=== PATIENT | male | born 1970 | race American Indian/Alaskan Native ===

== ENCOUNTER 2017-08-23 12:59 | Emergency (ER) | payer MEDICARE, MEDICAID ==
[2017-08-23 12:59] VITALS: BMI 32.5
[2017-08-23 13:11] VITALS: TEMP 98.7
[2017-08-23] MEDS ORDERED: Oxycodone/Acetaminophen 5/325 mg Tab PO STA (13:49)
--- NOTE | 2017-08-23 13:57 | ED PDOC ---
Arrival/HPI - General Chief Complaint: Lower Extremity Problem/Injury Time Seen by Provider: 08/23/17 13:07 Historian: Patient - History of Present Illness Narrative History of Present Illness (Text): 08/23/17 13:53 47yo male with PMHx of hypertension, diabetes, ESRD on dialysis TTHS present with complaint of right thigh pain. States pain radiates from his proximal thigh to his distal right thigh x 2days. Pain is more with movement. Denies trauma ,swelling , calf pain, redness, back pain, chest pain, SOB, any other complaint. Past Medical History - Provider Review Nursing Documentation Reviewed: Yes - Past History Past History: Non-Contributing - Infectious Disease Hx of Infectious Diseases: None - Tetanus Immunization Tetanus Immunization: Unknown - Cardiac Hx Hypertension: Yes Hx Pacemaker: No - Pulmonary Hx Respiratory Disorders: No - Neurological Hx Paralysis: No - HEENT Hx HEENT Disorder: No - Renal Hx Renal Disorder: Yes Hx Dialysis: Yes Date of Last Dialysis Treatment: 08/21/17 Hx Renal Failure: Yes - Endocrine/Metabolic Hx Endocrine Disorders: Yes Hx Diabetes Mellitus Type 2: Yes (iddm) - Hematological/Oncological Hx Blood Transfusions: No Hx Blood Transfusion Reaction: No - Integumentary Hx Dermatological Disorder: Yes - Musculoskeletal/Rheumatological Hx Musculoskeletal Disorders: No - Gastrointestinal Hx Gastrointestinal Disorders: No - Genitourinary/Gynecological Hx Genitourinary Disorders: No - Psychiatric Hx Emotional Abuse: No Hx Physical Abuse: No Hx Substance Use: No - Surgical History Hx Orthopedic Surgery: Yes (R FOOT) - Anesthesia Hx Anesthesia Reactions: No Hx Malignant Hyperthermia: No - Suicidal Assessment Feels Threatened In Home Enviroment: No Family/Social History - Physician Review Nursing Documentation Reviewed: Yes Family/Social History: Unknown Family HX Smoking Status: Former Smoker Hx Alcohol Use: No Hx Substance Use: No Substance used: CANNABIS Hx Substance Use Treatment: No Allergies/Home Meds Allergies/Adverse Reactions: Allergies No Known Allergies Allergy (Verified 08/23/17 13:11) Home Medications: Home Meds Medication Instructions Recorded Confirmed Insulin Lispro Mix 75/25 [HumaLOG 20 units SC ACB 06/07/15 10/15/16 Mix 75/25] Insulin Lispro Mix 75/25 [HumaLOG 15 units SC HS 06/10/16 10/15/16 Mix 75/25] Review of Systems - Physician Review All systems were reviewed & negative as marked: Yes - Review of Systems Constitutional: Normal Eyes: Normal ENT: Normal Respiratory: Normal Cardiovascular: Normal Gastrointestinal: Normal Genitourinary Male: Normal Musculoskeletal: Arthralgias (right thigh pain) Skin: Normal Neurological: Normal Endocrine: Normal Hemo/Lymphatic: Normal Psychiatric: Normal Physical Exam Vital Signs Reviewed: Yes Vital Signs Temp Pulse Resp BP Pulse Ox 08/23/17 13:07 98.7 F 87 18 195/106 H 98 Temperature: Afebrile Blood Pressure: Hypertensive Pulse: Regular Respiratory Rate: Normal Appearance: Positive for: Well-Appearing, Non-Toxic, Comfortable Pain Distress: None Mental Status: Positive for: Alert and Oriented X 3 - Systems Exam Head: Present: Atraumatic, Normocephalic Pupils: Present: PERRL Extroacular Muscles: Present: EOMI Conjunctiva: Present: Normal Mouth: Present: Moist Mucous Membranes Neck: Present: Normal Range of Motion Respiratory/Chest: Present: Clear to Auscultation, Good Air Exchange. No: Respiratory Distress, Accessory Muscle Use Cardiovascular: Present: Regular Rate and Rhythm, Normal S1, S2. No: Murmurs Abdomen: Present: Normal Bowel Sounds. No: Tenderness, Distention, Peritoneal Signs Back: Present: Normal Inspection Upper Extremity: Present: Normal Inspection. No: Cyanosis, Edema Lower Extremity: Present: NORMAL PULSES, Normal ROM, Neurovascularly Intact. No : Edema, CALF TENDERNESS, Tenderness, Swelling, Erythema, Temperature Abnormalties Neurological: Present: GCS=15, CN II-XII Intact, Speech Normal Skin: Present: Warm, Dry, Normal Color. No: Rashes Psychiatric: Present: Alert, Oriented x 3, Normal Insight, Normal Concentration Medical Decision Making ED Course and Treatment: 08/23/17 14:51 Pt in ED for stated history. He as ambulatory with steady gait in ED. His pain was controlled with PErcocet in ED Doppler US of b/l extremity was negative Femur xray was negative Result was DW the pt. He will be DC home with a rx of Gapapentin for pain/ neuropathy. Referred to his PMD. TRT ED for any new symptoms. - RAD Interpretation Radiology Orders: 08/23/17 13:47 DUPLEX LOWER EXTRM VEIN BILAT [US] Stat 08/23/17 13:48 FEMUR MIN 2 VIEWS RT [RAD] Stat - Medication Orders Current Medication Orders: Discontinued Medications Oxycodone/Acetaminophen (Percocet 5/325 Mg Tab) 1 tab PO STAT STA Stop: 08/23/17 13:50 Disposition/Present on Arrival - Present on Arrival Any Indicators Present on Arrival: No History of DVT/PE: No History of Uncontrolled Diabetes: No Urinary Catheter: No History of Decub. Ulcer: No History Surgical Site Infection Following: None - Disposition Have Diagnosis and Disposition been Completed?: Yes Diagnosis: Leg pain Disposition: HOME/ ROUTINE Disposition Time: 14:55 Patient Plan: Discharge Condition: STABLE Discharge Instructions (ExitCare): Leg Pain (ED) Additional Instructions: Follow up with your doctor Return to ED for any new symptoms Prescriptions: Gabapentin [Neurontin] 100 mg PO TID #12 capsule Referrals: Artur House MD [Family Provider] - Follow up with primary Forms: [facility] (Telugu)
--- NOTE | 2017-08-23 15:04 | RAD ---
PROCEDURE: Right Femur Radiographs. HISTORY: leg pain COMPARISON: None. TECHNIQUE: AP and Lateral Radiographs of the right femur. FINDINGS: FEMUR: Normal. No fracture. SOFT TISSUES: Normal. OTHER FINDINGS: None. IMPRESSION: Unremarkable radiographs of the right femur.
[2017-08-23 15:55] VITALS: BP 184/87; PULSE 80; RESP 16; O2SAT 100
--- NOTE | 2017-08-23 17:04 | US ---
HISTORY: Leg pain and swelling. Evaluate for DVT PHYSICIAN(S): Dawson Sandoval MD. TECHNIQUE: Duplex sonography and color-flow Doppler with graded compression were used to evaluate the deep venous systems of both lower extremities. FINDINGS: The visualized deep venous systems of both lower extremities are sonographically normal and compressible. Normal wave forms and augmentation are seen. There is no sonographic evidence for deep venous thrombosis in the visualized segments of both lower extremities. IMPRESSION: No sonographic evidence for deep venous thrombosis in the visualized segments of both lower extremities.
== END 2017-08-23 15:45 | disposition home or self-care (01) ==
LOC: ED 12:59
DX: M79.604 Pain in right leg (principal); I12.0 Hypertensive chronic kidney disease with stage 5 chronic kidney disease or end stage renal disease; E11.22 Type 2 diabetes mellitus with diabetic chronic kidney disease; N18.6 End stage renal disease; Z99.2 Dependence on renal dialysis; Z79.4 Long term (current) use of insulin; Z87.891 Personal history of nicotine dependence

== ENCOUNTER 2017-12-15 14:21 | Emergency (ER) | payer MEDICARE, MEDICAID ==
[2017-12-15 14:22] VITALS: BMI 32.5
[2017-12-15 14:54] VITALS: PULSE 92; TEMP 98.5
--- NOTE | 2017-12-15 15:35 | ED PDOC ---
Arrival/HPI - General Chief Complaint: Back Pain Time Seen by Provider: 12/15/17 15:00 Historian: Patient EM Caveat: Acuity of Condition - History of Present Illness Narrative History of Present Illness (Text): 12/15/17 15:17 The patient is a 47 year old male with a PMHx of hypertension, diabetes, ESRD on dialysis T/TH/S, and s/p lumbar spine fusion, presents with complaint of right thigh pain that starts in the right SI jt and refers down to anteriomedial thigh, superior to the knee for the past 2 days. Pain exacerbated with movement. Denies trauma ,swelling , calf pain, redness, back pain, chest pain, SOB, any other complaint. Time/Duration: < week Symptom Onset: Gradual Symptom Course: Intermittent Quality: Aching, Stabbing, Burning Severity Level: 6, 7 Activities at Onset: Rest, Light Context: Sitting, Standing, Walking, Home Past Medical History - Provider Review Nursing Documentation Reviewed: Yes - Travel History Have you recently traveled outside [place] w/in the past 3 mons?: No - Past History Past History: Non-Contributing - Infectious Disease Hx of Infectious Diseases: None - Tetanus Immunization Tetanus Immunization: Unknown - Cardiac Hx Cardiac Disorders: Yes Hx Hypertension: Yes - Pulmonary Hx Respiratory Disorders: No - Neurological Hx Neurological Disorder: No - HEENT Hx HEENT Disorder: No - Renal Hx Renal Disorder: Yes Hx Dialysis: Yes Date of Last Dialysis Treatment: 08/21/17 Hx Renal Failure: Yes - Endocrine/Metabolic Hx Endocrine Disorders: Yes Hx Diabetes Mellitus Type 2: Yes (iddm) - Hematological/Oncological Hx Blood Disorders: No - Integumentary Hx Dermatological Disorder: No - Musculoskeletal/Rheumatological Hx Musculoskeletal Disorders: Yes Hx Back Pain: Yes - Gastrointestinal Hx Gastrointestinal Disorders: No - Genitourinary/Gynecological Hx Genitourinary Disorders: No - Psychiatric Hx Psychophysiologic Disorder: No Hx Substance Use: No - Surgical History Hx Orthopedic Surgery: Yes (R FOOT) Other/Comment: AV SHUNT R ARM - Anesthesia Hx Anesthesia Reactions: No Hx Malignant Hyperthermia: No - Suicidal Assessment Feels Threatened In Home Enviroment: No Family/Social History - Physician Review Nursing Documentation Reviewed: Yes Family/Social History: Unknown Family HX Smoking Status: Former Smoker Hx Alcohol Use: No Hx Substance Use: No Substance used: CANNABIS Hx Substance Use Treatment: No Allergies/Home Meds Allergies/Adverse Reactions: Allergies No Known Allergies Allergy (Verified 12/15/17 14:47) Home Medications: Home Meds Medication Instructions Recorded Confirmed Insulin Lispro Mix 75/25 [HumaLOG 20 units SC ACB 06/07/15 12/15/17 Mix 75/25] Insulin Lispro Mix 75/25 [HumaLOG 15 units SC HS 06/10/16 12/15/17 Mix 75/25] Review of Systems - Review of Systems Constitutional: Normal Eyes: Normal ENT: Normal Respiratory: Normal Cardiovascular: Normal Gastrointestinal: Normal Genitourinary Male: Normal Musculoskeletal: Back Pain, Other (right leg pain) Skin: Normal Neurological: Normal Endocrine: Normal Hemo/Lymphatic: Normal Psychiatric: Normal Physical Exam Vital Signs Reviewed: Yes Vital Signs Temp Pulse Resp BP Pulse Ox 12/15/17 17:15 92 H 18 128/78 100 12/15/17 14:49 98.5 F 92 H 16 130/80 95 Temperature: Afebrile Blood Pressure: Normal Pulse: Regular Respiratory Rate: Normal Appearance: Positive for: Well-Appearing, Non-Toxic, Comfortable Pain Distress: None Mental Status: Positive for: Alert and Oriented X 3 - Systems Exam Head: Present: Atraumatic, Normocephalic Pupils: Present: PERRL Extroacular Muscles: Present: EOMI Conjunctiva: Present: Normal Mouth: Present: Moist Mucous Membranes Neck: Present: Normal Range of Motion Respiratory/Chest: Present: Clear to Auscultation, Good Air Exchange. No: Respiratory Distress, Accessory Muscle Use Cardiovascular: Present: Regular Rate and Rhythm, Normal S1, S2. No: Murmurs Abdomen: Present: Normal Bowel Sounds. No: Tenderness, Distention, Peritoneal Signs Back: Present: Normal Inspection, Other (R SIJ, B/L (-) SLR) Upper Extremity: Present: Normal Inspection. No: Cyanosis, Edema Lower Extremity: Present: Normal Inspection, NORMAL PULSES, Normal ROM, Tenderness (SIJ right), Neurovascularly Intact, Capillary Refill < 2 s. No: Edema, CALF TENDERNESS, Cyanosis, Farooq's Sign, Swelling, Erythema, Deformity, Temperature Abnormalties, Other Neurological: Present: GCS=15, CN II-XII Intact, Speech Normal, Normal Sensory Function, Norm Deep Tendon Reflexes, Gait Normal Skin: Present: Warm, Dry, Normal Color. No: Rashes Psychiatric: Present: Alert, Oriented x 3, Normal Insight, Normal Concentration Medical Decision Making ED Course and Treatment: 12/15/17 15:19 Impression 47yo male with PMHx of hypertension, diabetes, ESRD on dialysis TTHS, s/p lumbar spine fusion present with complaint of right thigh pain that starts in the right SI jt and refers down to anteriomedial thigh, superior to the knee for the past 2 days. Negative B SLR, Pt tender to the R SIJ Plan R femur XR 2 views assess and dispo Progress Referral to Dr. Germain for pain management Percocet 5/325 PO STAT and [id number] PO STAT 12/15/17 15:20 Femur XR unremarkable Discussed w pt Referral DW pt VSS and ambulated well - RAD Interpretation Radiology Orders: 12/15/17 15:16 Femur Right [FEMUR MIN 2 VIEWS RT] [RAD] Stat - Medication Orders Current Medication Orders: Discontinued Medications Gabapentin (Neurontin) 300 mg PO STAT ONE PRN Reason: Protocol Stop: 12/15/17 16:16 Last Admin: 12/15/17 16:24 Dose: 300 mg Oxycodone/Acetaminophen (Percocet 5/325 Mg Tab) 1 tab PO STAT STA Stop: 12/15/17 16:01 Last Admin: 12/15/17 16:24 Dose: 1 tab MAR Pain Assessment Document 12/15/17 16:24 SF (Rec: 12/15/17 16:24 [place] [email or web address] Pain Reassessment Is this a pain reassessment? Yes Sleep Is patient sleeping during reassessment? No Presence of Pain Presence of Pain Yes Disposition/Present on Arrival - Present on Arrival Any Indicators Present on Arrival: Yes History of DVT/PE: No History of Uncontrolled Diabetes: Yes Urinary Catheter: No History of Decub. Ulcer: No History Surgical Site Infection Following: None - Disposition Have Diagnosis and Disposition been Completed?: Yes Diagnosis: Sciatic leg pain, Sacro-iliac pain, Low back pain radiating down leg Disposition: HOME/ ROUTINE Disposition Time: 16:15 Patient Plan: Discharge Condition: GOOD Discharge Instructions (ExitCare): Sciatica (DC), Sacroiliac Joint Pain (DC) Additional Instructions: Dear Yonis, You were treated in the ED today for back pain. We gave you Gabapentin 300 mg tab to take at home for moderate pain. We gave you 1 tab of Extra Strength Tylenol to take in 6 hrs as directed for moderate pain. We recommend follow-up with a pain and resident program specialist physician in 1week to review your symptoms, who can take care of your sciatic pain, MRI imaging, and spine surgery referral. If any worsening pain, fever, chills, nausea, vomiting, difficulty breathing, numbness, tingling, loss of bowel or bladder or limb function or any medical condition then return to the ED. All the best in your recovery, EMILIA Hamilton Prescriptions: Acetaminophen [Tylenol 8 Hour] 650 mg PO Q6 #20 tablet.er Gabapentin [Neurontin] 300 mg PO TID 5 Days #15 cap [facility] - Follow up with primary Gerardo Germain MD [Staff Provider] - Follow up with primary Forms: [facility] (Libyan), WORK NOTE
[2017-12-15] MEDS ORDERED: Oxycodone/Acetaminophen 5/325 mg Tab PO STA (16:00)
--- NOTE | 2017-12-15 16:35 | RAD ---
PROCEDURE: Right Femur Radiographs. HISTORY: R leg pain COMPARISON: None. TECHNIQUE: AP and Lateral Radiographs of the right femur. FINDINGS: FEMUR: Normal. No fracture. SOFT TISSUES: Normal. OTHER FINDINGS: None. IMPRESSION: Unremarkable radiographs of the right femur.
[2017-12-16 11:33] VITALS: BP 128/78; RESP 18; O2SAT 100
== END 2017-12-15 17:15 | disposition home or self-care (01) ==
LOC: ED 14:21
DX: M54.5 Low back pain (principal); M53.3 Sacrococcygeal disorders, not elsewhere classified; M54.30 Sciatica, unspecified side; I12.0 Hypertensive chronic kidney disease with stage 5 chronic kidney disease or end stage renal disease; N18.6 End stage renal disease; Z99.2 Dependence on renal dialysis; E11.9 Type 2 diabetes mellitus without complications; Z87.891 Personal history of nicotine dependence

== ENCOUNTER 2018-09-03 23:16 | Inpatient (IN) | payer MEDICARE, MEDICAID ==
--- NOTE | 2018-09-04 00:12 | ED PDOC ---
Arrival/HPI <Chyna,Gigi - Last Filed: 09/04/18 00:18> - General Historian: Patient - History of Present Illness Narrative History of Present Illness (Text): 09/04/18 00:08 48 y/o male, pmh including htn/dm/nephrotic syndrome/NSTEMI/DM/ESRD //wednesday, last dialysis yesterday 09/03/2018, nkda, c/o rt. foot foul smell and wound x 1 week. Pt. stated that he wound on the rt. foot 5th digit toe which never healed, skin been peeling and been having foul smelling discharge, no fever or chills, no headache or night sweat, no dizziness, no change in vision, no numbness or tingling, no other medical or psychological complaints. <Laureano Molina - Last Filed: 09/04/18 02:35> - General Chief Complaint: Lower Extremity Problem/Injury Past Medical History - Provider Review Nursing Documentation Reviewed: Yes - Past History Past History: Non-Contributing - Infectious Disease Hx of Infectious Diseases: None - Tetanus Immunization Tetanus Immunization: Unknown - Cardiac Hx Hypertension: Yes - Pulmonary Hx Respiratory Disorders: No - Neurological Hx Neurological Disorder: No - HEENT Hx HEENT Disorder: No - Renal Hx Renal Disorder: Yes Hx Dialysis: Yes Date of Last Dialysis Treatment: 08/21/17 Hx Renal Failure: Yes - Endocrine/Metabolic Hx Endocrine Disorders: Yes Hx Diabetes Mellitus Type 2: Yes (iddm) - Hematological/Oncological Hx Blood Disorders: No - Integumentary Hx Dermatological Disorder: No - Musculoskeletal/Rheumatological Hx Musculoskeletal Disorders: Yes Hx Back Pain: Yes - Gastrointestinal Hx Gastrointestinal Disorders: No - Genitourinary/Gynecological Hx Genitourinary Disorders: No - Psychiatric Hx Psychophysiologic Disorder: No Hx Substance Use: No - Surgical History Hx Orthopedic Surgery: Yes (R FOOT) Other/Comment: AV SHUNT R ARM - Anesthesia Hx Anesthesia Reactions: No Hx Malignant Hyperthermia: No - Suicidal Assessment Feels Threatened In Home Enviroment: No <Laureano Molina - Last Filed: 09/04/18 02:35> Family/Social History - Physician Review Nursing Documentation Reviewed: Yes Family/Social History: Unknown Family HX Smoking Status: Former Smoker Hx Alcohol Use: No Hx Substance Use: No Substance used: CANNABIS Hx Substance Use Treatment: No <Laureano Molina - Last Filed: 09/04/18 02:35> Allergies/Home Meds <ChynaGigi - Last Filed: 09/04/18 00:18> <Laureano Molina - Last Filed: 09/04/18 02:35> Allergies/Adverse Reactions: Allergies No Known Allergies Allergy (Verified 12/15/17 14:47) Home Medications: Home Meds Medication Instructions Recorded Confirmed Insulin Lispro Mix 75/25 [HumaLOG 20 units SC ACB 06/07/15 02/03/18 Mix 75/25] Insulin Lispro Mix 75/25 [HumaLOG 15 units SC HS 06/10/16 02/03/18 Mix 75/25] Review of Systems - Review of Systems Constitutional: absent: Fatigue, Fevers Eyes: absent: Vision Changes ENT: absent: Hearing Changes Respiratory: absent: SOB, Cough Cardiovascular: absent: Chest Pain Gastrointestinal: absent: Abdominal Pain, Diarrhea, Nausea, Vomiting Musculoskeletal: absent: Arthralgias, Back Pain Skin: Skin Lesions, Ulcer, Cellulitis. absent: Rash, Pruritis, Laceration, Abscess Neurological: absent: Headache, Dizziness Psychiatric: absent: Anxiety, Depression, Suicidal Ideation <Laureano Molina - Last Filed: 09/04/18 02:35> Physical Exam Vital Signs Temp Pulse Resp Pulse Ox 09/04/18 00:07 98.4 F 89 19 100 <Chyna,Gigi - Last Filed: 09/04/18 00:18> - Systems Exam Head: Present: Atraumatic, Normocephalic Pupils: Present: PERRL Extroacular Muscles: Present: EOMI Conjunctiva: Present: Normal Mouth: Present: Moist Mucous Membranes Neck: Present: Normal Range of Motion Respiratory/Chest: Present: Clear to Auscultation, Good Air Exchange. No: Respiratory Distress, Accessory Muscle Use Cardiovascular: Present: Regular Rate and Rhythm, Normal S1, S2. No: Murmurs Abdomen: No: Tenderness, Distention, Peritoneal Signs Back: Present: Normal Inspection Upper Extremity: Present: Normal Inspection. No: Cyanosis, Edema Lower Extremity: Present: Normal Inspection, Other (Rt. foot: visible macerated erythematous and ulcerated 5th digit toe noted, no skin laceration, skin is peeling on the 5th toe, +DPPT pulses, capillary refill< 2 seconds, neurovascular intact, FROM without limitation. ). No: Edema Neurological: Present: GCS=15, CN II-XII Intact, Speech Normal Skin: Present: Warm, Dry, Normal Color. No: Rashes Psychiatric: Present: Alert, Oriented x 3, Normal Insight, Normal Concentration <Laureano Molina - Last Filed: 09/04/18 02:35> Medical Decision Making - RAD Interpretation Radiology Orders: 09/04/18 00:06 CHEST TWO VIEWS (PA/LAT) [RAD] Stat FOOT RIGHT 3 VIEWS ROUTINE [RAD] Stat <Gigi Clemente - Last Filed: 09/04/18 00:18> ED Course and Treatment: 09/04/18 00:11 -labs/cultures -xrays -ekg -IV vancomycin/zosyn -Observe and reassess 09/04/18 01:08 -EKG: NSR @ 88 BPM, no ST elevation or depression, no T wave inversion. -CXR: ER wet readno active disease -Rt. foot xray: Er wet read: subluxation/displaced 5th digit toe. Pt. stated that this is chronic for him as he has deformity rt. foot. Will get routine gun striper consult for him as he stated that the toe condition is chronic. -Labs are non-significant except bun 44 and creatine 8.3, K+ 5.1. Paging the patient's neighborhood coordinator Dr. Davis -Mg within normal limit -ESR 104 -CRP and Procalcitonin ordered and would be followed up by admitting team -Pt.'s pmd is Dr. Velasquez and Tank Shop Supervisor Dr. Davis, will need dialysis and admission for IV antibiotic, discussed with the patient and agreed to be admitted. 09/04/18 01:46 -His gun striper is Dr. Granados, routine consult ordered -I spoke to his neighborhood coordinator, Dr. Davis and on the consult for this case, discussed about the case/labs/radiology result and recommend one dose kayaxylate only and he would manage from there about his renal and electrolytes. -I spoke to the medicine admitting team Dr. Lamar and the resident, discussed about the case/labs/radiology result and would admit the patient. 09/04/18 02:13 -Case discussed with Dr. Clemente about the xray and he agreed the rt. foot can be routine consult with the gun striper. - RAD Interpretation Radiology Orders: 09/04/18 00:06 CHEST TWO VIEWS (PA/LAT) [RAD] Stat FOOT RIGHT 3 VIEWS ROUTINE [RAD] Stat -CXR: -Rt. foot xray: Clinical Nursing Instructor: Radiologist - EKG Interpretation EKG Interpretation (Text): 09/04/18 00:31 EKG: NSR @ 88 BPM, no ST elevation or depression, no T wave inversion. Interpreted by ED Physician: Yes Type: 12 lead EKG <Laureano Molina - Last Filed: 09/04/18 02:35> - PA / CHURCH HISTORY PROFESSOR / Resident Statement ELIZABETH has reviewed & agrees with the documentation as recorded. ELIZABETH has examined the patient and agrees with the treatment plan. <Gigi Clemente - Last Filed: 09/04/18 00:18> - PA / CHUR[facility] HISTORY PROFESSOR / Resident Statement ELIZABETH has reviewed & agrees with the documentation as recorded. ELIZABETH has examined the patient and agrees with the treatment plan. <Laureano Molina - Last Filed: 09/04/18 02:35> Disposition/Present on Arrival <Gigi Clemente - Last Filed: 09/04/18 00:18> - Present on Arrival Any Indicators Present on Arrival: No History of DVT/PE: No History of Uncontrolled Diabetes: Yes Urinary Catheter: No History of Decub. Ulcer: No History Surgical Site Infection Following: None - Disposition Have Diagnosis and Disposition been Completed?: Yes Disposition Time: 01:08 Patient Plan: Admission, Observation, Telemetry <Laureano Molina - Last Filed: 09/04/18 02:35> - Disposition Diagnosis: ESRD (end stage renal disease), Diabetic foot infection, Hyperkalemia, Subluxation of toe, Deformity, foot Disposition: HOSPITALIZED Patient Problems: Current Active Problems Problem Status Onset Hyperkalemia Acute ESRD (end stage renal disease) Acute Diabetic foot infection Acute Subluxation of toe Acute Condition: STABLE
[2018-09-04 00:31] LABS: BASO # 0.02 K/mm3 (0.0-2.0); BASO % 0.2 % (0.0-3.0); EOS # 0.2 (0.0-0.7); EOS % 2.5 % (1.5-5.0); GRAN # 6.44 (1.4-6.5); GRAN % 71.5 % (50.0-68.0); HEMOGLOBIN 10.6 g/dL (14.0-18.0); LYMPH # 1.8 (1.2-3.4); LYMPH % 19.7 % (22.0-35.0); MEAN CELL VOLUME 92.5 fl (80.0-105.0); MEAN CORPUSCULAR HEMOGLOBIN 29.3 pg (25.0-35.0); MEAN CORPUSCULAR HGB CONC 31.6 g/dl (31.0-37.0); MONO # 0.6 (0.1-0.6); MONO % 6.1 % (1.0-6.0); RBC 3.62 10^6/uL (3.5-6.1); RED CELL DISTRIBUTION WIDTH 15.5 % (11.5-14.5)
[2018-09-04 00:43] LABS: ALBUMIN 4.3 g/dL (3.0-4.8); CALCIUM 8.4 mg/dL (8.4-10.5)
[2018-09-04] MEDS ORDERED: Piperacillin/Tazobact 3.375 gm 100 ML IVPB STA (01:05)
[2018-09-04] MEDS ORDERED: Vancomycin 1gm in NS 250ml 1 GM/250 ML BAG IVPB STA (01:05)
[2018-09-04] MEDS ORDERED: Sod Polystyrene Sulf 15 gm/60 ml Susp PO STA (01:17)
[2018-09-04] MEDS ORDERED: Insulin Regular 1 UNITS/0.01 ML ML IV STA (01:17)
[2018-09-04] MEDS ORDERED: Dextrose 50% SYRINGE Inj (50 ml) IVP STA (01:18)
--- NOTE | 2018-09-04 03:01 | CP.PCM.HP ---
<Leroy Meyer - Last Filed: 09/04/18 03:19> History of Present Illness - History of Present Illness History of Present Illness: Leroy Meyer PGY1 History and Physical for Dr Lamar Pt is a 48 yo male with a PMH of HTN, DM, nephrotic syndrome, NSTEMI, ESRD, Wed//Sat with his last dialysis yesterday 09/03/18 who presents to the ED complaining of his right foot, 5th digit having a foul smell and wound for the past week. Pt states he has had the wound on his foot which has never healed. The skin has started to peel and it has a foul discharge. Pt denies fever or chills. PMH: IDDM, diabetic nephropathy, HTN, dyslipidemia, CKD stage IV, history of intersitial nephritis, TRENT Psx: fusion of T11-L4 s/p compression fracture Meds: Hydralazine, Norvasc, Humalog SH: Tobacco quit 5 years ago, denies alcohol, denies drugs FH: mother from a "blood hemorrhage" father living 72 throat cancer Allergies: NKDA Present on Admission - Present on Admission Any Indicators Present on Admission: No Review of Systems - Review of Systems Review of Systems: a 12 point ROS of systems was obtained and added to the HPI where appropriate Past Patient History - Infectious Disease Hx of Infectious Diseases: None - Tetanus Immunizations Tetanus Immunization: Unknown - Past Social History Smoking Status: Former Smoker - CARDIAC Hx Hypertension: Yes - PULMONARY Hx Respiratory Disorders: No - NEUROLOGICAL Hx Neurological Disorder: No - HEENT Hx HEENT Problems: No - RENAL Hx Chronic Kidney Disease: Yes Hx Dialysis: Yes Date of Last Dialysis Treatment: 08/21/17 Hx Renal Failure: Yes - ENDOCRINE/METABOLIC Hx Endocrine Disorders: Yes Hx Diabetes Mellitus Type 2: Yes (iddm) - HEMATOLOGICAL/ONCOLOGICAL Hx Blood Disorders: No - INTEGUMENTARY Hx Dermatological Problems: No - MUSCULOSKELETAL/RHEUMATOLOGICAL Hx Musculoskeletal Disorders: Yes Hx Back Pain: Yes - GASTROINTESTINAL Hx Gastrointestinal Disorders: No - GENITOURINARY/GYNECOLOGICAL Hx Genitourinary Disorders: No - PSYCHIATRIC Hx Psychophysiologic Disorder: No Hx Substance Use: No - SURGICAL HISTORY Hx Orthopedic Surgery: Yes (R FOOT) Other/Comment: AV SHUNT R ARM - ANESTHESIA Hx Anesthesia Reactions: No Hx Malignant Hyperthermia: No Meds Allergies/Adverse Reactions: Allergies Allergy/AdvReac Type Severity Reaction Status Date / Time No Known Allergies Allergy Verified 12/15/17 14:47 Physical Exam - Head Exam Head Exam: ATRAUMATIC, NORMOCEPHALIC - Eye Exam Eye Exam: EOMI, PERRL - ENT Exam ENT Exam: Mucous Membranes Moist - Respiratory Exam Respiratory Exam: Clear to Auscultation Bilateral, NORMAL BREATHING PATTERN. absent: Accessory Muscle Use, Wheezes - Cardiovascular Exam Cardiovascular Exam: RRR, +S1, +S2. absent: Diastolic murmur, Systolic Murmur - GI/Abdominal Exam GI & Abdominal Exam: Normal Bowel Sounds, Soft - Extremities Exam Extremities exam: Positive for: full ROM. Negative for: pedal edema Additional comments: thrill heard over fistula right UE - Neurological Exam Neurological exam: Oriented x3 - Psychiatric Exam Psychiatric exam: Normal Affect, Normal Mood - Skin Skin Exam: Dry, Intact, Normal Color, Warm Results - Vital Signs Recent Vital Signs: Last Vital Signs Temp 98.4 F 09/04/18 00:07 Pulse 89 09/04/18 00:07 Resp 19 09/04/18 00:07 BP 140/75 09/03/18 23:58 Pulse Ox 100 09/04/18 00:07 - Labs Result Diagrams: 09/04/18 00:16 09/04/18 00:16 Labs: Laboratory Results - last 24 hr 09/04/18 09/04/18 00:16 00:16 WBC 9.0 RBC 3.62 Hgb 10.6 L Hct 33.5 L MCV 92.5 D MCH 29.3 MCHC 31.6 RDW 15.5 H Plt Count 229 MPV 10.0 Gran % 71.5 H Lymph % (Auto) 19.7 L [place] % (Auto) 6.1 H Eos % (Auto) 2.5 Baso % (Auto) 0.2 Gran # 6.44 Lymph # (Auto) 1.8 [place] # (Auto) 0.6 Eos # (Auto) 0.2 Baso # (Auto) 0.02 ESR 104 H Sodium 137 Potassium 5.1 H Chloride 98 Carbon Dioxide 27 Anion Gap 18 BUN 44 H Creatinine 8.3 H* D Est GFR ( Amer) 8 Est GFR (Non-Af Amer) 7 Random Glucose 180 H Calcium 8.4 Magnesium 1.9 Total Bilirubin 0.5 AST 39 ALT 34 Alkaline Phosphatase 123 Total Creatine Kinase 239 H CK-MB (CK-2) 2.0 CK-MB (CK-2) % Cancelled Total Protein 8.6 H Albumin 4.3 Globulin 4.3 Albumin/Globulin Ratio 1.0 L Assessment & Plan - Assessment and Plan (Free Text) Assessment: 48 yo male with a PMH of HTN, DM, nephrotic syndrome, NSTEMI, ESRD, Tue/Thurs/Sat with his last dialysis yesterday 09/03/18 who presents to the ED complaining of his right foot, 5th digit having a foul smell and wound for the past week. Plan: Diabetic Foot infection, 5th digit of Right foot - UA - kayexalate - procal - foot x ray - wound culture - blood culture - CRP - vanc - pip/tazo - wound care consult - ID consult - nephro consult - podiatry consult MERLIN on CKD stage IV - baseline Cr: 4.7 - Cr: 8.3 - continue HD Anemia, chronic - Hgb: 10.6 - secondary to CKD DM - continue to monitor blood glucose, maintain euglycemia - ISS High - accuchekcs ACHS HTN - Norvac - hydralazine Ppx pantoprazole Pt seen, examined, assessment and plan discussed with Dr Brianda Meyer PGY1 - Date & Time Date: 09/04/18 Time: 03:05 <Janusz Lamar - Last Filed: 09/04/18 06:39> Results - Vital Signs Recent Vital Signs: Last Vital Signs Temp 98.4 F 09/04/18 00:07 Pulse 84 09/04/18 05:24 Resp 19 09/04/18 05:24 BP 132/70 09/04/18 03:00 Pulse Ox 100 09/04/18 03:00 - Labs Result Diagrams: 09/04/18 00:16 09/04/18 00:16 Labs: Laboratory Results - last 24 hr 09/04/18 09/04/18 00:16 00:16 WBC 9.0 RBC 3.62 Hgb 10.6 L Hct 33.5 L MCV 92.5 D MCH 29.3 MCHC 31.6 RDW 15.5 H Plt Count 229 MPV 10.0 Gran % 71.5 H Lymph % (Auto) 19.7 L [place] % (Auto) 6.1 H Eos % (Auto) 2.5 Baso % (Auto) 0.2 Gran # 6.44 Lymph # (Auto) 1.8 [place] # (Auto) 0.6 Eos # (Auto) 0.2 Baso # (Auto) 0.02 ESR 104 H Sodium 137 Potassium 5.1 H Chloride 98 Carbon Dioxide 27 Anion Gap 18 BUN 44 H Creatinine 8.3 H* D Est GFR ( Amer) 8 Est GFR (Non-Af Amer) 7 Random Glucose 180 H Calcium 8.4 Magnesium 1.9 Total Bilirubin 0.5 AST 39 ALT 34 Alkaline Phosphatase 123 Total Creatine Kinase 239 H CK-MB (CK-2) 2.0 CK-MB (CK-2) % Cancelled Total Protein 8.6 H Albumin 4.3 Globulin 4.3 Albumin/Globulin Ratio 1.0 L Attending/Attestation - Attestation I have personally seen and examined this patient.: Yes I have fully participated in the care of the patient.: Yes I have reviewed all pertinent clinical information: Yes Notes (Text): 09/04/18 06:39 Patient was seen when he was in bed # [id number]. Agree with history, physical examination, assessment and plan.
[2018-09-04 05:28] VITALS: BMI 11.3
[2018-09-04] MEDS: Insulin Lispro (HUMAlog) HIGH Coverage SC SCH ×4 (07:30→22:36)
--- NOTE | 2018-09-04 08:36 | RAD ---
HISTORY: admission, clearance COMPARISON: Chest x-ray performed 12/23/17 TECHNIQUE: Chest PA and lateral FINDINGS: Examination limited habitus. LUNGS: No focal consolidation. Please note that chest x-ray has limited sensitivity for the detection of pulmonary masses. PLEURA: No significant pleural effusion identified. No definite pneumothorax . CARDIOVASCULAR: Heart size appears top normal. No atherosclerotic calcification present. OSSEOUS STRUCTURES: Partially imaged metallic vernon and screw fixation the lumbar spine. VISUALIZED UPPER ABDOMEN: Unremarkable. OTHER FINDINGS: None. IMPRESSION: No focal consolidation.
--- NOTE | 2018-09-04 08:42 | RAD ---
PROCEDURE: Right foot Radiographs. HISTORY: macerated rt. 5th toe COMPARISON: None available. FINDINGS: BONES: No definite acute displaced fracture. JOINTS: Dislocation of the 5th digit at the proximal phalanx. SOFT TISSUES: Marked soft tissue swelling. 3 mm linear hyperdensity adjacent/medial to the proximal 1st phalanx. Additional 2 mm hyperdensity is noted on a single view chest medial to the distal aspect 3rd proximal phalanx. Apparent soft tissue laceration of the distal 5th phalanx. OTHER FINDINGS: None. IMPRESSION: Dislocation of the 5th digit at the proximal phalanx. Associated soft tissue swelling. 3 mm linear hyperdensity adjacent/medial to the proximal 1st phalanx. Additional 2 mm hyperdensity is noted on a single view chest medial to the distal aspect 3rd proximal phalanx. Tiny fracture fragment or foreign body cannot be entirely excluded. Apparent soft tissue laceration of the distal 5th phalanx. Study marked for PA review.
[2018-09-04] MEDS: Piperacillin/Tazobact 2.25gm 2.25 GM/100 ML BAG IVPB SCH ×3 (10:47→22:13)
[2018-09-04] MEDS: Linezolid 600 mg in D5W 300 ml 600 MG/300 ML BAG IVPB SCH (10:49)
--- NOTE | 2018-09-04 11:22 | CP.PCM.CON ---
History of Present Illness - History of Present Illness History of Present Illness: Podiatry Consult Note: Dr. Baig 48M patient, with PMHx of DM, HTN, ESRD, seen and evaluated at bedside for R foot 5th digit ulceration. Patient is resting in bed and in NAD. Patient states that he is well known to Dr. Baig and has been seen in the wound care center for years. He states that the ulceration happened earlier last week and he decided to present to the emergency room before it got worse. He states that the wound has been draining a small amount and he continues to wrap it himself. He denies any pain to the area. Denies any new pedal complaints. He denies N/V/F/SOB/CP. PMHx: DM, HTN, ESRD PSHx: R arm fistula ALL: NKDA Review of Systems - Review of Systems Review of Systems: As per HPI Past Patient History - Infectious Disease Hx of Infectious Diseases: None - Tetanus Immunizations Tetanus Immunization: Unknown - Past Social History Smoking Status: Former Smoker - CARDIAC Hx Congestive Heart Failure: Yes Hx Hypertension: Yes Other/Comment: nstemi - PULMONARY Hx Respiratory Disorders: No - NEUROLOGICAL Hx Neurological Disorder: No - HEENT Hx HEENT Problems: No - RENAL Hx Chronic Kidney Disease: Yes Hx Dialysis: Yes (,,) - ENDOCRINE/METABOLIC Hx Diabetes Mellitus Type 2: Yes - HEMATOLOGICAL/ONCOLOGICAL Hx Blood Disorders: No - INTEGUMENTARY Hx Dermatological Problems: No - MUSCULOSKELETAL/RHEUMATOLOGICAL Hx Falls: No Hx Osteomyelitis: Yes - GASTROINTESTINAL Hx Gastrointestinal Disorders: No - GENITOURINARY/GYNECOLOGICAL Hx Genitourinary Disorders: No - PSYCHIATRIC Hx Substance Use: No - SURGICAL HISTORY Hx Orthopedic Surgery: Yes (R FOOT) Other/Comment: AV SHUNT R ARM - ANESTHESIA Hx Anesthesia Reactions: No Hx Malignant Hyperthermia: No Meds Allergies/Adverse Reactions: Allergies Allergy/AdvReac Type Severity Reaction Status Date / Time No Known Allergies Allergy Verified 12/15/17 14:47 - Medications Medications: Current Medications Amlodipine Besylate (Norvasc) 10 mg PO DAILY MAVIS Last Admin: 09/04/18 10:46 Dose: 10 mg Hydralazine HCl (Apresoline) 10 mg PO Q6 PRN PRN Reason: Systolic Blood Pressure Piperacillin Sod/Tazobactam Sod (Zosyn 2.25 Gm In 0.9% 100 Ml) 2.25 gm in 100 mls @ 100 mls/hr IVPB Q8 MAVIS; Protocol Last Admin: 09/04/18 10:47 Dose: 100 mls/hr Linezolid (Zyvox 600mg/300ml D5w) 600 mg in 300 mls @ 200 mls/hr IVPB Q12 MAVIS; Protocol Stop: 09/11/18 10:01 Last Admin: 09/04/18 10:49 Dose: 200 mls/hr Insulin Human Lispro (Humalog High) 0 units SC ACHS MAVIS; Protocol Last Admin: 09/04/18 07:30 Dose: Not Given Pantoprazole Sodium (Protonix Inj) 40 mg IVP DAILY MAVIS Last Admin: 09/04/18 10:47 Dose: 40 mg Physical Exam - Constitutional Appears: Well, Non-toxic, No Acute Distress - Head Exam Head Exam: ATRAUMATIC, NORMOCEPHALIC - Extremities Exam Additional comments: B/L lower extremity focused exam: Vasc: DP/PT pulses palpable, Cap fill time < 3s, Temp gradient wnl, mild edema noted to lateral aspect of L foot Derm: Open ulceration noted to the dorsal- lateral aspect of the 5th MTPJ measuring approximately 2cm x 1.5x.2 cm with fibrogranular base, mildly macer ated wound border, no erythema, mild serous drainage, no probe to bone at this time, significant xerosis noted to dorsal aspect of foot bilaterally Neuro: Gross sensation diminished, protective sensation absent Ortho: No pain upon palpation, rotated R 5th digit, pes planus deformity, hammering of digits 4 and 5 on the R - Neurological Exam Neurological exam: Alert, Oriented x3 - Psychiatric Exam Psychiatric exam: Normal Affect, Normal Mood Results - Vital Signs Recent Vital Signs: Last Vital Signs Temp 99.1 F 09/04/18 06:00 Pulse 74 09/04/18 06:00 Resp 22 09/04/18 06:00 BP 129/79 09/04/18 10:46 Pulse Ox 99 09/04/18 06:00 - Labs Result Diagrams: 09/04/18 00:16 09/04/18 00:16 Labs: Laboratory Results - last 24 hr 09/04/18 09/04/18 00:16 00:16 WBC 9.0 RBC 3.62 Hgb 10.6 L Hct 33.5 L MCV 92.5 D MCH 29.3 MCHC 31.6 RDW 15.5 H Plt Count 229 MPV 10.0 Gran % 71.5 H Lymph % (Auto) 19.7 L [place] % (Auto) 6.1 H Eos % (Auto) 2.5 Baso % (Auto) 0.2 Gran # 6.44 Lymph # (Auto) 1.8 [place] # (Auto) 0.6 Eos # (Auto) 0.2 Baso # (Auto) 0.02 ESR 104 H Sodium 137 Potassium 5.1 H Chloride 98 Carbon Dioxide 27 Anion Gap 18 BUN 44 H Creatinine 8.3 H* D Est GFR ( Amer) 8 Est GFR (Non-Af Amer) 7 Random Glucose 180 H Calcium 8.4 Magnesium 1.9 Total Bilirubin 0.5 AST 39 ALT 34 Alkaline Phosphatase 123 Total Creatine Kinase 239 H CK-MB (CK-2) 2.0 CK-MB (CK-2) % Cancelled Total Protein 8.6 H Albumin 4.3 Globulin 4.3 Albumin/Globulin Ratio 1.0 L Assessment & Plan - Assessment and Plan (Free Text) Assessment: 48M patient, with PMHx of DM, HTN, ESRD, seen and evaluated at bedside for R foot 5th digit ulceration. Plan: Patient seen and evaluated with all questions and concerns addressed Lab, chart, vitals reviewed; VSS, WBC 9.0 R foot x-rays taken; dislocation of 5th digit proximal phalanx with associated soft tissue swelling Local wound care; R foot dressed with betadine and DSD Wound culture R foot; pending ID reccs appreciated Continue IV abx, Zosyn Will continue to follow Thank you for the consult - Date & Time Date: 09/04/18 Time: 11:31
--- NOTE | 2018-09-04 13:05 | CON ---
NEPHROLOGY CONSULTATION DATE OF CONSULTATION: 09/04/2018 HISTORY OF PRESENT ILLNESS: The patient is a 48-year-old male with past medical history of hypertension, diabetes, morbid obesity, and end-stage renal disease, on hemodialysis (Wednesday, and Wednesday at [facility] under [facility]), presented to the ED complaining of right fifth toe ulcer. Nephrology is being consulted for ESRD care. The patient denies suffering any trauma to the affected toe. Notes that ulcer had dehisced and had some drainage and therefore he decided to come to the ER. Denies any associated fever or chills. Denies any pain at affected site. Does have some decreased feeling in his feet, but overall is able to feel any kind of trauma. The patient otherwise had his last hemodialysis session yesterday per routine. Denies any shortness of breath. Has a good appetite. Denies any nausea, vomiting or diarrhea. PAST MEDICAL HISTORY: As above, initiated on hemodialysis in 06/2016 with renal biopsy showing diabetic nephropathy. Also with acute tubular interstitial nephritis seen at that time. FAMILY HISTORY: ESRD in the family. SOCIAL HISTORY: Denies smoking. REVIEW OF SYSTEMS: CONSTITUTIONAL: No fevers or chills. HEENT: No sinus pain or congestion. No sore throat. RESPIRATORY: Having cough since past few weeks. CARDIOVASCULAR: No chest pain or palpitations. No neck swelling. GI: No nausea, vomiting or diarrhea. : The patient is anuric. Denies any other urethral discharge or pain. MUSCULOSKELETAL: Denies any arthralgias. Has a history of chronic back pain, status post neurosurgical procedure. PSYCHIATRIC: Saw Psychiatry within last few weeks as part of transplant workup. Suspected compulsive eating habits. NEURO: Neuropathy involving bilateral feet. SKIN: Left fifth toe ulceration. PHYSICAL EXAMINATION: VITAL SIGNS: This morning, blood pressure 129/79, heart rate 74, respirations 22, temperature 99.1, O2 sat 99% on room air. GENERAL: No distress. Conversing coherently in full sentences. HEENT: Moist mucous membranes. Nonicteric. No cervical lymphadenopathy. RESPIRATORY: Lungs clear to auscultation bilaterally. No rales, no rhonchi, no wheezing. SKIN: Warm. No cyanosis. Left fifth toe lateral side ulceration with scant drainage. ABDOMEN: Soft, nontender, nondistended. : No bladder distention. EXTREMITIES: No lower leg edema. PSYCHIATRIC: Normal mood, normal affect. NEURO: No resting tremor. Has some decreased sensation in bilateral feet. LABORATORY DATA: On presentation, WBC 9.0, hemoglobin 10.6, hematocrit 33.5, platelets 229,000. Chemistry Panel: Sodium 137, potassium 5.1, chloride 98, bicarb 27, BUN 44, creatinine 8.3, glucose 180, calcium 8.4, magnesium 1.9, AST 39, ALT 34, CK 239, albumin 4.3. Chest x-ray directly visualized, lungs clear. ASSESSMENT/PLAN: 1. End-stage renal disease, on hemodialysis, relatively stable volume and electrolyte status. The patient has a history of very high interdialytic weight gain from excessive p.o. intake. Serum potassium at higher end of normal despite having dialysis just yesterday. We will simply monitor electrolytes. No need for further dosing of Kayexalate unless potassium increases significantly. Next dialysis on Wednesday per routine. 2. Hypertensive end-stage renal disease. Blood pressure currently controlled on amlodipine 10 mg daily. Had been on diuretics at home, but the patient has lost his residual renal function. Will stop home diuretics. 3. Chronic kidney disease, mineral bone disorder. The patient with hyperphosphatemia as well as secondary hyperparathyroidism of chronic kidney disease. Will continue with home doses of Sensipar and sevelamer 800 mg 4 tablets with each meal. 4. Anemia of chronic kidney disease. Hemoglobin at goal for chronic kidney disease. Will continue with outpatient EPO per protocol. 5. Right fifth toe diabetic foot ulcer. The patient currently on Zyvox and Zosyn. Zosyn being dosed for end-stage renal disease. Will follow up with ID for outpatient IV antibiotic dosing to be given on hemodialysis. Thank you for this referral. We will be following up closely. Jay Davis MD
--- NOTE | 2018-09-04 16:41 | CP.PCM.CON ---
History of Present Illness - History of Present Illness History of Present Illness: 48 year old male with PMH of HTN, DM, history of nephrotic syndrome, ESRD on HD, came in to [facility] because of discharge and foul smell associated with ulcer on the lateral portion of his right foot associated with some pain. He states that he regularly sees his Nursing Secretary Dr. Baig and the last time was last month and he apparently had no ulcer then. He states that he noticed the ulcer about a week ago, and there was only minimal discharge. He denies soaking his feet in water, no fever or chills, no animal contacts, no walking barefoot on soil. He also denies chest pain, no SOB, no headache or dizziness, no abdominal pain, no diarrhea, no dysuria. Review of Systems - Review of Systems All systems: reviewed and no additional remarkable complaints except (as per HPI) Past Patient History - Infectious Disease Hx of Infectious Diseases: None - Tetanus Immunizations Tetanus Immunization: Unknown - Past Social History Smoking Status: Former Smoker - CARDIAC Hx Congestive Heart Failure: Yes Hx Hypertension: Yes Other/Comment: nstemi - PULMONARY Hx Respiratory Disorders: No - NEUROLOGICAL Hx Neurological Disorder: No - HEENT Hx HEENT Problems: No - RENAL Hx Chronic Kidney Disease: Yes Hx Dialysis: Yes (,,) - ENDOCRINE/METABOLIC Hx Diabetes Mellitus Type 2: Yes - HEMATOLOGICAL/ONCOLOGICAL Hx Blood Disorders: No - INTEGUMENTARY Hx Dermatological Problems: No - MUSCULOSKELETAL/RHEUMATOLOGICAL Hx Falls: No Hx Osteomyelitis: Yes - GASTROINTESTINAL Hx Gastrointestinal Disorders: No - GENITOURINARY/GYNECOLOGICAL Hx Genitourinary Disorders: No - PSYCHIATRIC Hx Substance Use: No - SURGICAL HISTORY Hx Orthopedic Surgery: Yes (R FOOT) Other/Comment: AV SHUNT R ARM - ANESTHESIA Hx Anesthesia Reactions: No Hx Malignant Hyperthermia: No Meds Allergies/Adverse Reactions: Allergies Allergy/AdvReac Type Severity Reaction Status Date / Time No Known Allergies Allergy Verified 12/15/17 14:47 - Medications Medications: Current Medications Amlodipine Besylate (Norvasc) 10 mg PO DAILY MAVIS Hydralazine HCl (Apresoline) 10 mg PO Q6 PRN PRN Reason: Systolic Blood Pressure Insulin Human Lispro (Humalog High) 0 units SC ACHS MAVIS; Protocol Pantoprazole Sodium (Protonix Inj) 40 mg IVP DAILY MAVIS Physical Exam - Constitutional Appears: Chronically Ill - Head Exam Head Exam: NORMAL INSPECTION - Respiratory Exam Respiratory Exam: Decreased Breath Sounds - Cardiovascular Exam Cardiovascular Exam: +S1, +S2 - GI/Abdominal Exam GI & Abdominal Exam: Soft. absent: Tenderness - Extremities Exam Additional comments: right lateral foot at the 5th toe with ulcer with some serosanguinous discharge Results - Vital Signs Recent Vital Signs: Last Vital Signs Temp 99.1 F 09/04/18 06:00 Pulse 74 09/04/18 06:00 Resp 22 09/04/18 06:00 BP 144/99 H 09/04/18 06:00 Pulse Ox 99 09/04/18 06:00 - Labs Result Diagrams: 09/04/18 00:16 09/04/18 00:16 Labs: Laboratory Results - last 24 hr 09/04/18 09/04/18 00:16 00:16 WBC 9.0 RBC 3.62 Hgb 10.6 L Hct 33.5 L MCV 92.5 D MCH 29.3 MCHC 31.6 RDW 15.5 H Plt Count 229 MPV 10.0 Gran % 71.5 H Lymph % (Auto) 19.7 L [place] % (Auto) 6.1 H Eos % (Auto) 2.5 Baso % (Auto) 0.2 Gran # 6.44 Lymph # (Auto) 1.8 [place] # (Auto) 0.6 Eos # (Auto) 0.2 Baso # (Auto) 0.02 ESR 104 H Sodium 137 Potassium 5.1 H Chloride 98 Carbon Dioxide 27 Anion Gap 18 BUN 44 H Creatinine 8.3 H* D Est GFR ( Amer) 8 Est GFR (Non-Af Amer) 7 Random Glucose 180 H Calcium 8.4 Magnesium 1.9 Total Bilirubin 0.5 AST 39 ALT 34 Alkaline Phosphatase 123 Total Creatine Kinase 239 H CK-MB (CK-2) 2.0 CK-MB (CK-2) % Cancelled Total Protein 8.6 H Albumin 4.3 Globulin 4.3 Albumin/Globulin Ratio 1.0 L Assessment & Plan - Assessment and Plan (Free Text) Plan: Assessment Right 5th toe infected ulcer R/O osteomyelitis, R/O PVD HTN DM history of nephrotic syndrome ESRD on HD Plan Started Zyvox and Zosyn pending blood and wound cx; will also follow up xray of the foot, and will get LEONELA's follow up Podiatry evaluation will monitor clinically
--- NOTE | 2018-09-04 18:40 | CARD ---
APPROVED REPORT Date of service: 09/04/2018 EKG Measurement Heart [id number] <Conclusion> Normal sinus rhythm Normal ECG
[2018-09-05] MEDS: Pantoprazole 40 mg EC Tab PO SCH (05:51)
[2018-09-05] MEDS: Piperacillin/Tazobact 2.25gm 2.25 GM/100 ML BAG IVPB SCH ×3 (06:22→22:00)
[2018-09-05] MEDS: Insulin Lispro (HUMAlog) HIGH Coverage SC SCH ×3 (08:01→16:25)
[2018-09-05 09:35] LABS: ALB/GLOB RATIO 1.1 (1.1-1.8); CALCIUM 8.8 mg/dL (8.4-10.5)
[2018-09-05 09:39] LABS: BASO # 0.01 K/mm3 (0.0-2.0); BASO % 0.1 % (0.0-3.0); EOS # 0.2 (0.0-0.7); GRAN # 4.92 (1.4-6.5); GRAN % 69.7 % (50.0-68.0); HEMOGLOBIN 10.2 g/dL (14.0-18.0); LYMPH # 1.6 (1.2-3.4); MEAN CELL VOLUME 91.5 fl (80.0-105.0); MEAN CORPUSCULAR HEMOGLOBIN 28.8 pg (25.0-35.0); MEAN CORPUSCULAR HGB CONC 31.5 g/dl (31.0-37.0); MEAN PLATELET VOLUME 9.9 fl (7.0-11.0); MONO # 0.4 (0.1-0.6); MONO % 5.2 % (1.0-6.0); RBC 3.54 10^6/uL (3.5-6.1); RED CELL DISTRIBUTION WIDTH 15.5 % (11.5-14.5); WHITE BLOOD COUNT 7.1 10^3/uL (4.5-11.0)
[2018-09-05] MEDS: Linezolid 600 mg in D5W 300 ml 600 MG/300 ML BAG IVPB SCH ×2 (09:58→21:55)
--- NOTE | 2018-09-05 10:26 | CP.PCM.PN ---
Subjective - Date & Time of Evaluation Date of Evaluation: 09/05/18 Time of Evaluation: 10:25 - Subjective Subjective: Podiatry Progress Note for Dr. Baig: 48M patient seen and evaluated at bedside for R foot 5th digit ulceration. Patient resting in bed comfortably and in NAD. He denies any pain to the area. Denies any new pedal complaints. He denies N/V/F/SOB/CP. Objective - Vital Signs/Intake and Output Vital Signs (last 24 hours): Temp Pulse Resp BP Pulse Ox 97.8 F 85 20 147/72 98 09/05/18 06:00 09/05/18 06:00 09/05/18 06:00 09/05/18 06:00 09/05/18 06:00 Intake and Output: 09/05/18 09/05/18 06:59 18:59 Intake Total 1500 Balance 1500 - Medications Medications: Current Medications Cinacalcet (Sensipar) 60 mg PO BIDAC [facility] Last Admin: 09/05/18 08:06 Dose: 60 mg Hydralazine HCl (Apresoline) 10 mg PO Q6 PRN PRN Reason: Systolic Blood Pressure Piperacillin Sod/Tazobactam Sod (Zosyn 2.25 Gm In 0.9% 100 Ml) 2.25 gm in 100 mls @ 100 mls/hr IVPB Q8 [facility]; Protocol Last Admin: 09/05/18 06:22 Dose: 100 mls/hr Linezolid (Zyvox 600mg/300ml D5w) 600 mg in 300 mls @ 200 mls/hr IVPB Q12 [facility]; Protocol Stop: 09/11/18 10:01 Last Admin: 09/05/18 09:58 Dose: 200 mls/hr Insulin Human Lispro (Humalog High) 0 units SC ACHS [facility]; Protocol Last Admin: 09/05/18 08:01 Dose: Not Given Losartan Potassium (Cozaar) 100 mg PO DAILY [facility] Last Admin: 09/05/18 09:58 Dose: 100 mg Pantoprazole Sodium (Protonix Ec Tab) 40 mg PO 0600 [facility] Last Admin: 09/05/18 05:51 Dose: 40 mg Sevelamer HCl (Renagel) 3,200 mg PO WM [facility] Last Admin: 09/05/18 08:06 Dose: 3,200 mg - Labs Labs: 09/05/18 09:00 09/05/18 09:00 - Constitutional Appears: Well, Non-toxic, No Acute Distress - Head Exam Head Exam: ATRAUMATIC, NORMOCEPHALIC - Extremities Exam Additional comments: B/L lower extremity focused exam: Vasc: DP/PT pulses palpable, Cap fill time < 3s, Temp gradient wnl, mild edema noted to lateral aspect of L foot Derm: Open ulceration noted to the dorsal- lateral aspect of the 5th MTPJ measuring approximately 2cm x 1.5x.2 cm with fibrogranular base, mildly macerated wound border, no erythema, mild serous drainage, no probe to bone at this time, significant xerosis noted to dorsal aspect of foot bilaterally Neuro: Gross sensation diminished, protective sensation absent Ortho: No pain upon palpation, rotated R 5th digit, pes planus deformity, hammering of digits 4 and 5 on the R - Neurological Exam Neurological Exam: Alert, Awake, Oriented x3 - Psychiatric Exam Psychiatric exam: Normal Affect, Normal Mood Assessment and Plan - Assessment and Plan (Free Text) Assessment: 48M patient, seen and evaluated at bedside for R foot 5th digit ulceration. Plan: Patient seen and evaluated at bedside with Dr. Jovanni BRANNON, WBC 7.1 HbA1C ordered ESR ordered RLE MRI without contrast ordered; pending Non-invasive vascular studies ordered Local wound care: xeroform, DSD Rx: bactroban for local wound care starting tomorrow
[2018-09-05] MEDS ORDERED: Dextrose 50% SYRINGE Inj (50 ml) IVP ONE (10:31)
[2018-09-05] MEDS ORDERED: Sod Polystyrene Sulf 15 gm/60 ml Susp PO STA (10:31)
[2018-09-05] MEDS ORDERED: Insulin Regular 1 UNITS/0.01 ML ML IVP STA (10:33)
--- NOTE | 2018-09-05 12:43 | CP.PCM.PN ---
Subjective - Date & Time of Evaluation Date of Evaluation: 09/05/18 Time of Evaluation: 09:20 - Subjective Subjective: Comfortable in bed, no fevers, no increased pain in the right foot. Objective - Vital Signs/Intake and Output Vital Signs (last 24 hours): Temp Pulse Resp BP Pulse Ox 98.1 F 86 18 130/88 94 L 09/04/18 14:13 09/04/18 14:13 09/04/18 14:13 09/04/18 14:13 09/04/18 14:13 - Medications Medications: Current Medications Amlodipine Besylate (Norvasc) 10 mg PO DAILY [facility] Last Admin: 09/04/18 10:46 Dose: 10 mg Hydralazine HCl (Apresoline) 10 mg PO Q6 PRN PRN Reason: Systolic Blood Pressure Piperacillin Sod/Tazobactam Sod (Zosyn 2.25 Gm In 0.9% 100 Ml) 2.25 gm in 100 mls @ 100 mls/hr IVPB Q8 [facility]; Protocol Last Admin: 09/04/18 10:47 Dose: 100 mls/hr Linezolid (Zyvox 600mg/300ml D5w) 600 mg in 300 mls @ 200 mls/hr IVPB Q12 [facility]; Protocol Stop: 09/11/18 10:01 Last Admin: 09/04/18 10:49 Dose: 200 mls/hr Insulin Human Lispro (Humalog High) 0 units SC ACHS [facility]; Protocol Last Admin: 09/04/18 11:53 Dose: Not Given Pantoprazole Sodium (Protonix Inj) 40 mg IVP DAILY [facility] Last Admin: 09/04/18 10:47 Dose: 40 mg Sevelamer HCl (Renagel) 3,200 mg PO WM [facility] Last Admin: 09/04/18 12:47 Dose: 3,200 mg - Labs Labs: 09/04/18 00:16 09/04/18 00:16 - Constitutional Appears: Chronically Ill - Head Exam Head Exam: NORMAL INSPECTION - Respiratory Exam Respiratory Exam: Decreased Breath Sounds - Cardiovascular Exam Cardiovascular Exam: +S1, +S2 - GI/Abdominal Exam GI & Abdominal Exam: Soft. absent: Tenderness - Extremities Exam Additional comments: right foot with dressings in place Assessment and Plan - Assessment and Plan (Free Text) Plan: Assessment Right 5th toe infected ulcer R/O osteomyelitis, R/O PVD HTN DM history of nephrotic syndrome ESRD on HD Plan continue Zyvox and Zosyn day 2 pending blood and wound cx;follow up LEONELA's and MRI of the foot follow up Podiatry evaluation will monitor clinically
--- NOTE | 2018-09-05 13:27 | CP.PCM.PN ---
<Shiva Bennett - Last Filed: 09/05/18 16:02> Subjective - Date & Time of Evaluation Date of Evaluation: 09/05/18 Time of Evaluation: 16:02 - Subjective Subjective: Shiva Bennett DO PGY1 - Internal Medicine Supervisor Pipelines - Medicine Progress Note Patient was seen and examined at bedside this morning No acute events overnight. Patient resting comfortably; Does complain of LLE/RLE burning sensation at night. No other complaints offered at this time. Objective - Vital Signs/Intake and Output Vital Signs (last 24 hours): Temp Pulse Resp BP Pulse Ox 97.8 F 85 20 147/72 98 09/05/18 06:00 09/05/18 06:00 09/05/18 06:00 09/05/18 06:00 09/05/18 06:00 Intake and Output: 09/05/18 09/05/18 06:59 18:59 Intake Total 1500 Balance 1500 - Medications Medications: Current Medications Cinacalcet (Sensipar) 60 mg PO BIDAC [facility] Last Admin: 09/05/18 08:06 Dose: 60 mg Hydralazine HCl (Apresoline) 10 mg PO Q6 PRN PRN Reason: Systolic Blood Pressure Piperacillin Sod/Tazobactam Sod (Zosyn 2.25 Gm In 0.9% 100 Ml) 2.25 gm in 100 mls @ 100 mls/hr IVPB Q8 [facility]; Protocol Last Admin: 09/05/18 06:22 Dose: 100 mls/hr Linezolid (Zyvox 600mg/300ml D5w) 600 mg in 300 mls @ 200 mls/hr IVPB Q12 [facility]; Protocol Stop: 09/11/18 10:01 Last Admin: 09/05/18 09:58 Dose: 200 mls/hr Insulin Human Lispro (Humalog High) 0 units SC ACHS [facility]; Protocol Last Admin: 09/05/18 11:53 Dose: Not Given Losartan Potassium (Cozaar) 100 mg PO DAILY [facility] Last Admin: 09/05/18 09:58 Dose: 100 mg Pantoprazole Sodium (Protonix Ec Tab) 40 mg PO 0600 [facility] Last Admin: 09/05/18 05:51 Dose: 40 mg Sevelamer HCl (Renagel) 3,200 mg PO WM [facility] Last Admin: 09/05/18 11:55 Dose: 3,200 mg - Labs Labs: 09/05/18 09:00 09/05/18 09:00 - Constitutional Appears: Well, Non-toxic, No Acute Distress - Head Exam Head Exam: ATRAUMATIC, NORMAL INSPECTION, NORMOCEPHALIC - Eye Exam Eye Exam: EOMI, Normal appearance, PERRL - ENT Exam ENT Exam: Mucous Membranes Moist - Respiratory Exam Respiratory Exam: Clear to Ausculation Bilateral, NORMAL BREATHING PATTERN - Cardiovascular Exam Cardiovascular Exam: RRR, +S1, +S2 - GI/Abdominal Exam GI & Abdominal Exam: Soft, Normal Bowel Sounds. absent: Tenderness - Extremities Exam Additional comments: Diminished pedal pulse Extremities warm RLE dressing in place; clear dry intact w/o discharge. - Neurological Exam Neurological Exam: Alert, Awake, CN II-XII Intact, Oriented x3 Assessment and Plan - Assessment and Plan (Free Text) Assessment: 48M w/ PMH HTN, DM, Nephrotic Syndrome, NSTEMI, ESRD - TTS dialysis, presented to ED w/ c/o foul odor + pain in 5th digit of Right foot x1 week prior to admission. Patient subsequently admitted for diabetic foot infection and osteomyelitis r/o Plan: Diabetic Foot infection of 5th digit R foot - r/o osteomyelitis R foot XR - dislocation of the 5th digit at proximal phalanx associated w/ soft tissue swelling; 3mm linear hyperdensity adjacent / medial to the proximal 1st phalanx - F/u RLE MRI - r/o osteo - C/w IV ABX as per ID - Zyvox / Zosyn - Wound Cx - GNR s/s pending - Blood Cx - negative @ 24H - Afebrile; WBC wnl - ESR/ CRP elevated - ID following appreciate recs - Podiatry following appreciate recs HyperKalemia + MERLIN on CKD stage IV - Patient hyperkalemic this AM - Insulin + Glucose; Kayexalate; Calcium gluconate given - Patient underwent HD this AM - baseline Cr: 4.7 - Nephro following, appreciate recs Anemia, chronic - Hgb: 10.6 - secondary to CKD DM - continue to monitor blood glucose, maintain euglycemia - ISS High - accuchekcs ACHS HTN - Norvac - hydralazine Ppx pantoprazole SCD Patient was seen examined discussed w/ attending Dr. Hope Bennett DO PGY1 - Internal Medicine Supervisor Pipelines - Medicine Progress Note <Hope Bennett R - Last Filed: 09/06/18 07:58> Objective - Vital Signs/Intake and Output Vital Signs (last 24 hours): Temp Pulse Resp BP Pulse Ox 97.8 F 85 20 147/72 98 09/05/18 06:00 09/05/18 06:00 09/05/18 06:00 09/05/18 06:00 09/05/18 06:00 Intake and Output: 09/06/18 09/06/18 06:59 18:59 Intake Total 360 Balance 360 - Medications Medications: Current Medications Cinacalcet (Sensipar) 60 mg PO BIDAC [facility] Last Admin: 09/05/18 16:30 Dose: 60 mg Heparin Sodium (Porcine) (Heparin) 5,000 units SC Q8 [facility]; Protocol Hydralazine HCl (Apresoline) 10 mg PO Q6 PRN PRN Reason: Systolic Blood Pressure Piperacillin Sod/Tazobactam Sod (Zosyn 2.25 Gm In 0.9% 100 Ml) 2.25 gm in 100 mls @ 100 mls/hr IVPB Q8 [facility]; Protocol Last Admin: 09/06/18 05:53 Dose: 100 mls/hr Linezolid (Zyvox 600mg/300ml D5w) 600 mg in 300 mls @ 200 mls/hr IVPB Q12 [facility]; Protocol Stop: 09/11/18 10:01 Last Admin: 09/05/18 21:55 Dose: 200 mls/hr Insulin Human Lispro (Humalog High) 0 units SC ACHS [facility]; Protocol Last Admin: 09/05/18 16:25 Dose: Not Given Losartan Potassium (Cozaar) 100 mg PO DAILY [facility] Last Admin: 09/05/18 09:58 Dose: 100 mg Mupirocin (Bactroban Ointment) 0 gm TOP BID [facility] Last Admin: 09/05/18 19:09 Dose: Not Given Pantoprazole Sodium (Protonix Ec Tab) 40 mg PO 0600 [facility] Last Admin: 09/06/18 05:54 Dose: 40 mg Sevelamer HCl (Renagel) 3,200 mg PO WM [facility] Last Admin: 09/05/18 16:30 Dose: 3,200 mg - Labs Labs: 09/06/18 06:20 12/18/18 06:20 Attending/Attestation - Attestation I have personally seen and examined this patient.: Yes I have fully participated in the care of the patient.: Yes I have reviewed all pertinent clinical information, including history, physical exam and plan: Yes Notes (Text): Patient seen and examined by me with resident at 10:40 AM on 09/05/18. Case including HPI, physical exam, and assessment and plan discussed with resident. Agree with above with following additions/corrections. Patient is a 48-year-old male with past medical history significant for hypertension, type 2 diabetes, nephrotic syndrome, coronary artery disease, NSTEMI, and end-stage renal disease on dialysis Wednesday//Wednesday the presented to the emergency room with foul smell from right foot fifth digit ulceration. Patient states he is feeling ok. Patient denies any pain in his right foot but complains of a "burning" sensation over night. Patient denies any trauma that he can remember to this right foot. Patient denies any abdominal pain. No nausea or vomiting. No chest pain or shortness of breath. No headaches or dizziness. No fevers or chills. No diarrhea or constipation. Physical exam: General: Awake and alert sitting up in bed in no acute distress HEENT: Normocephalic, atraumatic. Extraocular muscles intact, pupils equal and reactive, no scleral icterus. Oropharynx is pink moist. Neck is supple. Cardiovascular: Regular rhythm. Normal S1 and S2. No murmurs, rubs, or gallops appreciated Pulmonary: Normal respiratory effort. No rhonchi, rales, or wheezing appreciated Gastrointestinal: Soft, nondistended. Nontender. Positive bowel sounds all 4 quadrants. No guarding. Positive globular abdomen Musculoskeletal: Moves all extremities. No calf tenderness. Lower extremity yovany ma bilaterally. Central nervous system: AAO x 3, CN2-12 grossly intact Dermatologic: Skin warm and dry. Right foot dressing with some purulent discharge. Positive xeroderma of right foot. Assessment and plan: Patient is a 48-year-old male with past medical history significant for hypertension, type 2 diabetes, nephrotic syndrome, coronary artery disease, NSTEMI, and end-stage renal disease on dialysis Wednesday//Wednesday the presented to the emergency room with foul smell from right foot fifth digit ulceration. 1. Right foot diabetic foot ulcer. Rule out osteomyelitis. Podiatry following, recommendations appreciated. Right foot xray per radiologist showed dislocation of the fifth digit at the proximal phalanx, associated soft tissue swelling, 3 mm linear hyperdensity adjacent/medial to proximal first phalanx, additional 2 mm hyperdensity started on a single view medial to distal aspects of the third proximal phalanx, tiny fracture fragment foreign body cannot be entirely excl uded, apparent soft tissue laceration of the distal fifth phalanx. Case was discussed in detail with patient regarding current diagnosis and treatment plan. All questions answered.ID following, recommendations appreciated. Continue Zyvox and Zosyn. Pending final wound cultures. Cultures with no growth for 24 hours. Patient afebrile. No leukocytosis. ESR elevated. Follow-up MRI to rule out osteomyelitis. 2. Hyperkalemia. Patient for dialysis today. Patient given insulin and amp of D50. Also given Kayexalate. Follow up repeat labs. 3. End-stage renal disease on dialysis. Continue dialysis //Wednesday. Patient for extra dialysis today secondary to hyperkalemia. Nephrology following, recommendations appreciated. Continue Sensipar and Renagel. 4. Type 2 diabetes. Continue insulin sliding scale. Monitor Accu-Cheks. 5. Hypertension. Continue Cozaar. 6. GI/DVT prophylaxis. Protonix/heparin 7. Patient is a full code Case was discussed in detail with the patient regarding current diagnosis and treatment plan. All questions answered.
[2018-09-05] MEDS: Mupirocin 2% Ointment 15 GM TUBE TOP SCH (19:09)
--- NOTE | 2018-09-05 20:59 | CP.PCM.PN ---
Subjective - Date & Time of Evaluation Date of Evaluation: 09/05/18 Time of Evaluation: 12:00 - Subjective Subjective: Patient reports feeling well; tolerating diet; denies eating any high K foods; no sob; Objective - Vital Signs/Intake and Output Vital Signs (last 24 hours): Temp Pulse Resp BP Pulse Ox 97.8 F 85 20 147/72 98 09/05/18 06:00 09/05/18 06:00 09/05/18 06:00 09/05/18 06:00 09/05/18 06:00 - Medications Medications: Current Medications Cinacalcet (Sensipar) 60 mg PO BIDAC [facility] Last Admin: 09/05/18 16:30 Dose: 60 mg Hydralazine HCl (Apresoline) 10 mg PO Q6 PRN PRN Reason: Systolic Blood Pressure Piperacillin Sod/Tazobactam Sod (Zosyn 2.25 Gm In 0.9% 100 Ml) 2.25 gm in 100 mls @ 100 mls/hr IVPB Q8 [facility]; Protocol Last Admin: 09/05/18 16:24 Dose: 100 mls/hr Linezolid (Zyvox 600mg/300ml D5w) 600 mg in 300 mls @ 200 mls/hr IVPB Q12 [facility]; Protocol Stop: 09/11/18 10:01 Last Admin: 09/05/18 09:58 Dose: 200 mls/hr Insulin Human Lispro (Humalog High) 0 units SC ACHS [facility]; Protocol Last Admin: 09/05/18 16:25 Dose: Not Given Losartan Potassium (Cozaar) 100 mg PO DAILY [facility] Last Admin: 09/05/18 09:58 Dose: 100 mg Mupirocin (Bactroban Ointment) 0 gm TOP BID [facility] Last Admin: 09/05/18 19:09 Dose: Not Given Pantoprazole Sodium (Protonix Ec Tab) 40 mg PO 0600 [facility] Last Admin: 09/05/18 05:51 Dose: 40 mg Sevelamer HCl (Renagel) 3,200 mg PO WM [facility] Last Admin: 09/05/18 16:30 Dose: 3,200 mg - Labs Labs: 09/05/18 09:00 09/05/18 09:00 - Constitutional Appears: Non-toxic, No Acute Distress - Eye Exam Eye Exam: Normal appearance - Respiratory Exam Respiratory Exam: Clear to Ausculation Bilateral. absent: Respiratory Distress - Cardiovascular Exam Cardiovascular Exam: RRR, +S1, +S2 - GI/Abdominal Exam GI & Abdominal Exam: Soft. absent: Distended, Tenderness - Extremities Exam Additional comments: no leg edema; R arm AVF w/ good thrill; - Neurological Exam Neurological Exam: Alert, Awake - Psychiatric Exam Psychiatric exam: Normal Mood. absent: Agitated - Skin Skin Exam: Warm. absent: Cyanosis Assessment and Plan (1) ESRD on hemodialysis Assessment & Plan: Hyperkalemia seen today despite generally having been controlled as outpatient; dialyzing today off schedule for 2 hrs to control K level and help control volume status; next HD tomorrow per routine; -avoid IV calcium in ESRD patient unless considered urgent; -low K diet; Status: Acute (2) Hypertensive CKD, ESRD on dialysis Assessment & Plan: BP controlled on losartan 100 mg daily, continue same; Status: Chronic (3) Chronic kidney disease-mineral and bone disorder Assessment & Plan: Phos elevated lately; continue sevalamer 800 mg 4 tabs w/ each meal; sensipar 60 mg bid; Status: Chronic (4) Diabetic foot infection Assessment & Plan: On linezolid and zosyn (dosed for ESRD); will f/u with ID; Status: Acute (5) Anemia in chronic kidney disease Assessment & Plan: Hgb just at goal for CKD (10-11g); will re-dose DAVID drug (aranesp) on HD; Status: Acute
[2018-09-06] MEDS: Piperacillin/Tazobact 2.25gm 2.25 GM/100 ML BAG IVPB SCH ×3 (05:53→21:17)
[2018-09-06] MEDS: Pantoprazole 40 mg EC Tab PO SCH (05:54)
[2018-09-06 06:52] LABS: BASO # 0.02 K/mm3 (0.0-2.0); BASO % 0.3 % (0.0-3.0); EOS # 0.2 (0.0-0.7); EOS % 3.2 % (1.5-5.0); GRAN # 4.33 (1.4-6.5); GRAN % 63.1 % (50.0-68.0); HEMOGLOBIN 10.3 g/dL (14.0-18.0); LYMPH # 1.9 (1.2-3.4); LYMPH % 27.6 % (22.0-35.0); MEAN CELL VOLUME 91.1 fl (80.0-105.0); MEAN CORPUSCULAR HEMOGLOBIN 28.7 pg (25.0-35.0); MEAN CORPUSCULAR HGB CONC 31.5 g/dl (31.0-37.0); MEAN PLATELET VOLUME 9.4 fl (7.0-11.0); MONO # 0.4 (0.1-0.6); MONO % 5.8 % (1.0-6.0); RBC 3.59 10^6/uL (3.5-6.1); RED CELL DISTRIBUTION WIDTH 15.6 % (11.5-14.5); WHITE BLOOD COUNT 6.9 10^3/uL (4.5-11.0)
[2018-09-06 07:35] LABS: ALB/GLOB RATIO 1.1 (1.1-1.8); ALBUMIN 4.2 g/dL (3.0-4.8); CALCIUM 8.5 mg/dL (8.4-10.5)
[2018-09-06] MEDS ORDERED: Darbepoetin Alfa 40 mcg/ml Inj IVP ONE (10:05)
[2018-09-06] MEDS ORDERED: Doxercalciferol 4 mcg/2 ml Inj IV ONE (10:09)
[2018-09-06] MEDS: Mupirocin 2% Ointment 15 GM TUBE TOP SCH ×2 (11:11→17:16)
[2018-09-06] MEDS: Insulin Lispro (HUMAlog) HIGH Coverage SC SCH ×2 (11:11→16:30)
[2018-09-06] MEDS: Linezolid 600 mg in D5W 300 ml 600 MG/300 ML BAG IVPB SCH ×2 (11:12→21:18)
--- NOTE | 2018-09-06 12:42 | CP.PCM.PN ---
<Ginette Hackett - Last Filed: 09/06/18 14:10> Subjective - Date & Time of Evaluation Date of Evaluation: 09/06/18 Time of Evaluation: 07:40 - Subjective Subjective: Internal medicine progress note for Dr. Adela Bennett Patient seen and examined this am at bedside. NAEO per nursing. Patient states he is feeling much better and has no complaints. He states his foot is feeling much better. He will be going for additional dialysis today. He otherwise denies WORKMAN, CP, SOB, f/c, abdominal pain, n/v and extremity weakness. Objective - Vital Signs/Intake and Output Vital Signs (last 24 hours): Temp Pulse Resp BP Pulse Ox 98.8 F 86 18 141/92 H 94 L 09/06/18 08:09 09/06/18 08:09 09/06/18 08:09 09/06/18 08:09 09/06/18 08:09 Intake and Output: 09/06/18 09/06/18 06:59 18:59 Intake Total 360 Balance 360 - Medications Medications: Current Medications Cinacalcet (Sensipar) 60 mg PO BIDAC [facility] Last Admin: 09/06/18 11:11 Dose: Not Given Heparin Sodium (Porcine) (Heparin) 5,000 units SC Q8 [facility]; Protocol Hydralazine HCl (Apresoline) 10 mg PO Q6 PRN PRN Reason: Systolic Blood Pressure Piperacillin Sod/Tazobactam Sod (Zosyn 2.25 Gm In 0.9% 100 Ml) 2.25 gm in 100 mls @ 100 mls/hr IVPB Q8 [facility]; Protocol Last Admin: 09/06/18 05:53 Dose: 100 mls/hr Linezolid (Zyvox 600mg/300ml D5w) 600 mg in 300 mls @ 200 mls/hr IVPB Q12 [facility]; Protocol Stop: 09/11/18 10:01 Last Admin: 09/06/18 11:12 Dose: Not Given Insulin Human Lispro (Humalog High) 0 units SC ACHS [facility]; Protocol Last Admin: 09/06/18 11:11 Dose: Not Given Losartan Potassium (Cozaar) 100 mg PO DAILY [facility] Last Admin: 09/06/18 11:11 Dose: Not Given Mupirocin (Bactroban Ointment) 0 gm TOP BID [facility] Last Admin: 09/06/18 11:11 Dose: Not Given Pantoprazole Sodium (Protonix Ec Tab) 40 mg PO 0600 [facility] Last Admin: 09/06/18 05:54 Dose: 40 mg Sevelamer HCl (Renagel) 3,200 mg PO WM [facility] Last Admin: 09/06/18 12:06 Dose: Not Given - Labs Labs: 09/06/18 06:20 09/06/18 06:20 - Constitutional Appears: Well, Non-toxic, No Acute Distress - Head Exam Head Exam: ATRAUMATIC, NORMOCEPHALIC - Eye Exam Eye Exam: EOMI - ENT Exam ENT Exam: Mucous Membranes Moist - Respiratory Exam Respiratory Exam: NORMAL BREATHING PATTERN - Cardiovascular Exam Cardiovascular Exam: REGULAR RHYTHM - GI/Abdominal Exam GI & Abdominal Exam: Soft. absent: Distended, Guarding, Tenderness - Extremities Exam Extremities Exam: absent: Calf Tenderness, Pedal Edema Additional comments: dressing on R foot cdi, present but diminished pedal pulses bilaterally, extremities warm - Neurological Exam Neurological Exam: Alert, Awake, Oriented x3 - Psychiatric Exam Psychiatric exam: Normal Affect, Normal Mood - Skin Skin Exam: Dry, Warm Assessment and Plan - Assessment and Plan (Free Text) Assessment: 48M w/ PMH HTN, DM, Nephrotic Syndrome, NSTEMI, ESRD - TTS dialysis, presented to ED w/ c/o foul odor + pain in 5th digit of Right foot x1 week prior to admission. Patient subsequently admitted for diabetic foot infection and osteomyelitis r/o Plan: Diabetic Foot infection of 5th digit R foot - r/o osteomyelitis R foot XR - dislocation of the 5th digit at proximal phalanx associated w/ soft tissue swelling; 3mm linear hyperdensity adjacent / medial to the proximal 1st phalanx - F/u RLE MRI - r/o osteo - C/w IV ABX as per ID - Zyvox / Zosyn - Wound Cx - GNR s/s pending - Blood Cx - negative @ 48H - Afebrile; WBC wnl - ESR/ CRP elevated - ID following appreciate recs - Podiatry following appreciate recs HyperKalemia + MERLIN on CKD stage IV - Patient hyperkalemic this AM - Patient underwent HD this AM and yesterday - baseline Cr: 4.7 - Nephro following, appreciate recs Anemia, chronic - Hgb: 10.3 - secondary to CKD DM - continue to monitor blood glucose, maintain euglycemia - ISS High - accuchekcs ACHS HTN - Norvac - hydralazine Ppx pantoprazole SCD Patient was seen examined discussed w/ attending Dr. Hope Hackett, PGY 1 <Hope Bennett R - Last Filed: 09/07/18 17:23> Objective - Vital Signs/Intake and Output Vital Signs (last 24 hours): Temp Pulse Resp BP Pulse Ox 99.6 F 86 18 148/87 100 09/07/18 13:31 09/07/18 13:31 09/07/18 13:31 09/07/18 13:31 09/07/18 13:31 Intake and Output: 09/07/18 09/07/18 06:59 18:59 Intake Total 360 Balance 360 - Medications Medications: Current Medications Cinacalcet (Sensipar) 60 mg PO BIDAC [facility] Last Admin: 09/07/18 16:43 Dose: 60 mg Heparin Sodium (Porcine) (Heparin) 5,000 units SC Q8 [facility]; Protocol Last Admin: 09/07/18 07:05 Dose: 5,000 units Hydralazine HCl (Apresoline) 10 mg PO Q6 PRN PRN Reason: Systolic Blood Pressure Piperacillin Sod/Tazobactam Sod (Zosyn 2.25 Gm In 0.9% 100 Ml) 2.25 gm in 100 mls @ 100 mls/hr IVPB Q8 [facility]; Protocol Last Admin: 09/07/18 07:06 Dose: 100 mls/hr Linezolid (Zyvox 600mg/300ml D5w) 600 mg in 300 mls @ 200 mls/hr IVPB Q12 [facility]; Protocol Stop: 09/11/18 10:01 Last Admin: 09/07/18 10:14 Dose: 200 mls/hr Insulin Human Lispro (Humalog High) 0 units SC ACHS [facility]; Protocol Last Admin: 09/07/18 12:08 Dose: 2 unit Losartan Potassium (Cozaar) 100 mg PO DAILY [facility] Last Admin: 09/07/18 10:14 Dose: 100 mg Mupirocin (Bactroban Ointment) 0 gm TOP BID [facility] Last Admin: 09/07/18 16:43 Dose: 1 applic Sevelamer HCl (Renagel) 3,200 mg PO WM [facility] Last Admin: 09/07/18 16:43 Dose: 3,200 mg - Labs Labs: 09/07/18 07:30 09/07/18 07:30 Attending/Attestation - Attestation I have personally seen and examined this patient.: Yes I have fully participated in the care of the patient.: Yes I have reviewed all pertinent clinical information, including history, physical exam and plan: Yes Notes (Text): Patient seen and examined by me with resident at 11:30 AM on 09/06/18. Case including HPI, physical exam, and assessment and plan discussed with resident. Agree with above with following additions/corrections. Patient is a 48-year-old male with past medical history significant for hypertension, type 2 diabetes, nephrotic syndrome, coronary artery disease, NSTEMI, and end-stage renal disease on dialysis Wednesday//Wednesday the presented to the emergency room with foul smell from right foot fifth digit ulceration. Patient seen in dialysis. Patient states that he feels ok. Denies any pain or burning in his right foot today. Patient states "I dont feel anything." Patient denies chest pain or shortness of breath. No abdominal pain. No nausea or vomiting. No headaches or dizziness. No fevers or chills. No diarrhea or constipation. Physical exam: General: Awake and alert lying in bed in no acute distress HEENT: Normocephalic, atraumatic. Extraocular muscles intact, pupils equal and reactive, no scleral icterus. Oropharynx is pink moist. Neck is supple. Cardiovascular: Regular rhythm. Normal S1 and S2. No murmurs, rubs, or gallops appreciated Pulmonary: Normal respiratory effort. No rhonchi, rales, or wheezing appreciated Gastrointestinal: Soft, nondistended. Nontender. Positive bowel sounds all 4 quadrants. No guarding. Positive globular abdomen Musculoskeletal: Moves all extremities. No calf tenderness. Lower extremity edema bilaterally. Central nervous system: AAO x 3, CN2-12 grossly intact Dermatologic: Skin warm and dry. Right foot dressing with some purulent discharge. Positive xeroderma of right foot. Assessment and plan: Patient is a 48-year-old male with past medical history significant for hypertension, type 2 diabetes, nephrotic syndrome, coronary artery disease, NSTEMI, and end-stage renal disease on dialysis Wednesday//Wednesday the presented to the emergency room with foul smell from right foot fifth digit ulceration. 1. Right foot diabetic foot ulcer. Rule out osteomyelitis. Podiatry following, recommendations appreciated. Pending MRI of right foot to rule out osteomyelitis. Pending LEONELA. Continue Zyvox and Zosyn. Wound culture with gram negative rods, final culture pending. Right foot xray per radiologist showed dislocation of the fifth digit at the proximal phalanx, associated soft tissue swelling, 3 mm linear hyperdensity adjacent/medial to proximal first phalanx, additional 2 mm hyperdensity started on a single view medial to distal aspects of the third proximal phalanx, tiny fracture fragment foreign body cannot be ent irely excluded, apparent soft tissue laceration of the distal fifth phalanx. Blood cultures with no growth for 24 hours. Patient afebrile. No leukocytosis. ESR elevated. 2. Hyperkalemia. Improved. Continue with dialysis. Continue to monitor to potassium. 3. End-stage renal disease on dialysis. Continue dialysis Wednesday//Wednesday. Patient for extra dialysis today secondary to hyperkalemia. Continue Sensipar and Renagel. Nephrology following, recommendations appreciated. 4. Type 2 diabetes. Continue insulin sliding scale. Continue to monitor Accu- Cheks. 5. Hypertension. Continue Cozaar. Hydralazine prn. 6. GI/DVT prophylaxis. Protonix/heparin 7. Patient is a full code Case was discussed in detail with the patient regarding current diagnosis and treatment plan. All questions answered.
--- NOTE | 2018-09-06 15:11 | CP.PCM.PN ---
Subjective - Date & Time of Evaluation Date of Evaluation: 09/06/18 Time of Evaluation: 08:25 - Subjective Subjective: Comfortable, still awaiting MRI of the foot. No fevers. Objective - Vital Signs/Intake and Output Vital Signs (last 24 hours): Temp Pulse Resp BP Pulse Ox 97.8 F 85 20 147/72 98 09/05/18 06:00 09/05/18 06:00 09/05/18 06:00 09/05/18 06:00 09/05/18 06:00 Intake and Output: 09/05/18 09/05/18 06:59 18:59 Intake Total 1500 Balance 1500 - Medications Medications: Current Medications Cinacalcet (Sensipar) 60 mg PO BIDAC [facility] Last Admin: 09/05/18 08:06 Dose: 60 mg Hydralazine HCl (Apresoline) 10 mg PO Q6 PRN PRN Reason: Systolic Blood Pressure Piperacillin Sod/Tazobactam Sod (Zosyn 2.25 Gm In 0.9% 100 Ml) 2.25 gm in 100 mls @ 100 mls/hr IVPB Q8 [facility]; Protocol Last Admin: 09/05/18 06:22 Dose: 100 mls/hr Linezolid (Zyvox 600mg/300ml D5w) 600 mg in 300 mls @ 200 mls/hr IVPB Q12 [facility]; Protocol Stop: 09/11/18 10:01 Last Admin: 09/05/18 09:58 Dose: 200 mls/hr Insulin Human Lispro (Humalog High) 0 units SC ACHS [facility]; Protocol Last Admin: 09/05/18 11:53 Dose: Not Given Losartan Potassium (Cozaar) 100 mg PO DAILY [facility] Last Admin: 09/05/18 09:58 Dose: 100 mg Pantoprazole Sodium (Protonix Ec Tab) 40 mg PO 0600 [facility] Last Admin: 09/05/18 05:51 Dose: 40 mg Sevelamer HCl (Renagel) 3,200 mg PO WM [facility] Last Admin: 09/05/18 11:55 Dose: 3,200 mg - Labs Labs: 09/05/18 09:00 09/05/18 09:00 - Constitutional Appears: Chronically Ill - Head Exam Head Exam: NORMAL INSPECTION - Respiratory Exam Respiratory Exam: Decreased Breath Sounds - Cardiovascular Exam Cardiovascular Exam: +S1, +S2 - GI/Abdominal Exam GI & Abdominal Exam: Soft. absent: Tenderness Assessment and Plan - Assessment and Plan (Free Text) Plan: Assessment Right 5th toe infected ulcer R/O osteomyelitis, R/O PVD HTN DM history of nephrotic syndrome ESRD on HD Plan continue Zyvox and Zosyn day 3 pending wound cx;follow up LEONELA's and MRI of the foot follow up Podiatry evaluation will continue monitor clinically
--- NOTE | 2018-09-06 16:22 | US ---
PROCEDURE: Lower extremity LEONELA exam HISTORY: Peripheral vascular disease with pain and ulceration. Diabetes. Previous smoker. PHYSICIAN(S): Dawson Sandoval MD. FINDINGS: The resting LEONELA's are normal: right, 1.42and left, 1.35. The brachial systolic pressures are symmetric. The high thigh pressures and waveforms are relatively normal. The calf PVR waveforms augment normally. No significant gradients are noted across the thighs. The ankle and metatarsal waveforms are relatively normal and symmetric. No significant pressure gradients are noted across the lower legs. IMPRESSION: 1. Relatively normal LEONELA and PVR examination at rest.
--- NOTE | 2018-09-06 17:05 | MRI ---
Date of service: 09/06/2018 PROCEDURE: MRI of the right foot without contrast HISTORY: r/o osteo COMPARISON: Comparison x-ray 09/04/2018 TECHNIQUE: MRI of the right foot was performed in multiple planes using multiple pulse sequences. FINDINGS: There is marrow edema in the 5th toe as well as dislocation of the PIP joint. Findings are suspicious for osteomyelitis. There also cellulitis with subcutaneous edema over the dorsum of the foot and 5th toe. The metatarsals are unremarkable. IMPRESSION: There is marrow edema in the 5th toe as well as dislocation of the PIP joint. Findings are suspicious for osteomyelitis.
--- NOTE | 2018-09-06 23:02 | CP.PCM.PN ---
Subjective - Date & Time of Evaluation Date of Evaluation: 09/06/18 Time of Evaluation: 11:00 - Subjective Subjective: Patient seen on HD, tolerating well; no sob; tolerating diet; Objective - Vital Signs/Intake and Output Vital Signs (last 24 hours): Temp Pulse Resp BP Pulse Ox 98.8 F 86 18 141/92 H 94 L 09/06/18 08:09 09/06/18 08:09 09/06/18 08:09 09/06/18 08:09 09/06/18 08:09 - Medications Medications: Current Medications Cinacalcet (Sensipar) 60 mg PO BIDAC [facility] 234 BEDS AT [facility] Last Admin: 09/06/18 17:16 Dose: 60 mg Heparin Sodium (Porcine) (Heparin) 5,000 units SC Q8 [facility]; Protocol Last Admin: 09/06/18 21:17 Dose: 5,000 units Hydralazine HCl (Apresoline) 10 mg PO Q6 PRN PRN Reason: Systolic Blood Pressure Piperacillin Sod/Tazobactam Sod (Zosyn 2.25 Gm In 0.9% 100 Ml) 2.25 gm in 100 mls @ 100 mls/hr IVPB Q8 [facility]; Protocol Last Admin: 09/06/18 21:17 Dose: 100 mls/hr Linezolid (Zyvox 600mg/300ml D5w) 600 mg in 300 mls @ 200 mls/hr IVPB Q12 [facility]; Protocol Stop: 09/11/18 10:01 Last Admin: 09/06/18 21:18 Dose: 200 mls/hr Insulin Human Lispro (Humalog High) 0 units SC ACHS [facility] 234 BEDS AT [facility]; Protocol Last Admin: 09/06/18 16:30 Dose: Not Given Losartan Potassium (Cozaar) 100 mg PO DAILY [facility] Last Admin: 09/06/18 11:11 Dose: Not Given Mupirocin (Bactroban Ointment) 0 gm TOP BID [facility] Last Admin: 09/06/18 17:16 Dose: 1 applic Pantoprazole Sodium (Protonix Ec Tab) 40 mg PO 0600 [facility] 234 BEDS AT [facility] Last Admin: 09/06/18 05:54 Dose: 40 mg Sevelamer HCl (Renagel) 3,200 mg PO WM [facility] 234 BEDS AT [facility] Last Admin: 09/06/18 17:16 Dose: 3,200 mg - Labs Labs: 09/06/18 06:20 09/06/18 06:20 - Constitutional Appears: Non-toxic, No Acute Distress - Eye Exam Eye Exam: Normal appearance - Respiratory Exam Respiratory Exam: Clear to Ausculation Bilateral. absent: Respiratory Distress - Cardiovascular Exam Cardiovascular Exam: RRR, +S1, +S2 - GI/Abdominal Exam GI & Abdominal Exam: Soft. absent: Distended, Tenderness - Extremities Exam Additional comments: no leg edema; R arm AVF w/ pulsatile bruit distally; - Neurological Exam Neurological Exam: Alert, Awake - Psychiatric Exam Psychiatric exam: Normal Mood. absent: Agitated - Skin Skin Exam: Warm. absent: Cyanosis Assessment and Plan (1) ESRD on hemodialysis Assessment & Plan: Again with mild hyperkalemia despite getting short HD session yesterday, relatively new for patient; full HD session today; Status: Acute (2) Hypertensive CKD, ESRD on dialysis Assessment & Plan: BP controlled on losartan, continue; will benefit from UF on HD; Status: Chronic (3) Chronic kidney disease-mineral and bone disorder Assessment & Plan: Phos controlled, continue sevelamer 4 tabs w/ meals, sensipar 60 mg bid for secondary hyperparathyroidism; Status: Chronic (4) Diabetic foot infection Assessment & Plan: MRI concerning for OM involving R 5th toe; on zyvox and zosyn (dosed for HD); will f/u with ID regarding length of treatment and IV antibiotics on HD; Status: Acute (5) Anemia in chronic kidney disease Assessment & Plan: Hgb at goal for ESRD, giving EPO on HD; Status: Chronic
[2018-09-07] MEDS: Pantoprazole 40 mg EC Tab PO SCH (07:05)
[2018-09-07] MEDS: Piperacillin/Tazobact 2.25gm 2.25 GM/100 ML BAG IVPB SCH ×3 (07:06→21:15)
[2018-09-07 08:00] LABS: BASO # 0.01 K/mm3 (0.0-2.0); BASO % 0.1 % (0.0-3.0); EOS # 0.2 (0.0-0.7); EOS % 2.8 % (1.5-5.0); GRAN # 4.88 (1.4-6.5); GRAN % 64.9 % (50.0-68.0); HEMOGLOBIN 11.2 g/dL (14.0-18.0); LYMPH # 1.9 (1.2-3.4); LYMPH % 25.4 % (22.0-35.0); MEAN CELL VOLUME 91.9 fl (80.0-105.0); MEAN CORPUSCULAR HEMOGLOBIN 28.4 pg (25.0-35.0); MEAN CORPUSCULAR HGB CONC 30.9 g/dl (31.0-37.0); MEAN PLATELET VOLUME 9.9 fl (7.0-11.0); MONO # 0.5 (0.1-0.6); MONO % 6.8 % (1.0-6.0); RBC 3.94 10^6/uL (3.5-6.1); RED CELL DISTRIBUTION WIDTH 15.6 % (11.5-14.5); WHITE BLOOD COUNT 7.5 10^3/uL (4.5-11.0)
[2018-09-07 08:03] LABS: ALB/GLOB RATIO 1.1 (1.1-1.8); ALBUMIN 4.6 g/dL (3.0-4.8); CALCIUM 9.1 mg/dL (8.4-10.5)
--- NOTE | 2018-09-07 10:08 | CP.PCM.APN ---
Subjective - Date & Time of Evaluation Date of Evaluation: 09/07/18 Time of Evaluation: 08:40 - Subjective Subjective: Pt is seen and examined at bedside. No acute events overnight. He is in no distress. Objective - Vital Signs/Intake and Output Vital Signs (last 24 hours): Temp Pulse Resp BP Pulse Ox 97.8 F 83 19 134/86 95 09/07/18 06:00 09/07/18 06:00 09/07/18 06:00 09/07/18 06:00 09/07/18 06:00 Intake and Output: 09/07/18 09/07/18 06:59 18:59 Intake Total 360 Balance 360 - Medications Medications: Current Medications Cinacalcet (Sensipar) 60 mg PO BIDAC [facility] Last Admin: 09/07/18 08:17 Dose: 60 mg Heparin Sodium (Porcine) (Heparin) 5,000 units SC Q8 [facility]; Protocol Last Admin: 09/07/18 07:05 Dose: 5,000 units Hydralazine HCl (Apresoline) 10 mg PO Q6 PRN PRN Reason: Systolic Blood Pressure Piperacillin Sod/Tazobactam Sod (Zosyn 2.25 Gm In 0.9% 100 Ml) 2.25 gm in 100 mls @ 100 mls/hr IVPB Q8 [facility]; Protocol Last Admin: 09/07/18 07:06 Dose: 100 mls/hr Linezolid (Zyvox 600mg/300ml D5w) 600 mg in 300 mls @ 200 mls/hr IVPB Q12 [facility]; Protocol Stop: 09/11/18 10:01 Last Admin: 09/06/18 21:18 Dose: 200 mls/hr Insulin Human Lispro (Humalog High) 0 units SC ACHS [facility]; Protocol Last Admin: 09/06/18 16:30 Dose: Not Given Losartan Potassium (Cozaar) 100 mg PO DAILY [facility] Last Admin: 09/06/18 11:11 Dose: Not Given Mupirocin (Bactroban Ointment) 0 gm TOP BID [facility] Last Admin: 09/06/18 17:16 Dose: 1 applic Pantoprazole Sodium (Protonix Ec Tab) 40 mg PO 0600 [facility] Last Admin: 09/07/18 07:05 Dose: 40 mg Sevelamer HCl (Renagel) 3,200 mg PO WM [facility] Last Admin: 09/07/18 08:16 Dose: 3,200 mg - Labs Labs: 09/07/18 07:30 09/07/18 07:30 - Constitutional Appears: Well, No Acute Distress - Head Exam Head Exam: ATRAUMATIC - Eye Exam Eye Exam: Normal appearance - ENT Exam ENT Exam: Normal Exam - Respiratory Exam Respiratory Exam: Clear to Ausculation Bilateral, NORMAL BREATHING PATTERN - Cardiovascular Exam Cardiovascular Exam: REGULAR RHYTHM, +S1, +S2 - GI/Abdominal Exam GI & Abdominal Exam: Soft, Normal Bowel Sounds - Rectal Exam Rectal Exam: Deferred - Extremities Exam Additional comments: R arm AVF +bruit/thrill, R foot 5th digit ulceration - Neurological Exam Neurological Exam: Alert, Awake, Oriented x3 Assessment and Plan - Assessment and Plan (Free Text) Assessment: Pt is a 48 y.o. male who is admitted for R foot 5th toe ulceration. D/W Dr. Baig and stated that a deep tissue culture was obtained today (probed to bone) and will have to wait for culture result to determine IV abx. Hopefully, IV abx can be given during dialysis depending on repeat culture result. Impressions Extremity Ultrasound 09/06/18 09:56 IMPRESSION: 1. Relatively normal LEONELA and PVR examination at rest. Foot MRI 09/06/18 10:26 IMPRESSION: There is marrow edema in the 5th toe as well as dislocation of the PIP joint. Findings are suspicious for osteomyelitis. Plan: Iv abx per ID recs - on Zosyn and Zyvox Renal, Podiatry, ID on consult Meds per MAR Wound care per podiatry recs Will continue to follow
[2018-09-07] MEDS: Insulin Lispro (HUMAlog) HIGH Coverage SC SCH ×4 (10:14→22:30)
[2018-09-07] MEDS: Linezolid 600 mg in D5W 300 ml 600 MG/300 ML BAG IVPB SCH ×2 (10:14→21:18)
--- NOTE | 2018-09-07 11:04 | CP.PCM.PN ---
Subjective - Date & Time of Evaluation Date of Evaluation: 09/07/18 Time of Evaluation: 11:00 - Subjective Subjective: Podiatry Progress Note for Dr. Baig: 48M patient seen and evaluated at bedside for R foot 5th digit ulceration with suspected OM. Patient resting comfortably in bed, states that he is "feeling well" today. He denies any other pedal complaints at this time. Denies N/V/F/SOB/CP/chills. Objective - Vital Signs/Intake and Output Vital Signs (last 24 hours): Temp Pulse Resp BP Pulse Ox 97.8 F 83 19 134/86 95 09/07/18 06:00 09/07/18 06:00 09/07/18 06:00 09/07/18 06:00 09/07/18 06:00 Intake and Output: 09/07/18 09/07/18 06:59 18:59 Intake Total 360 Balance 360 - Medications Medications: Current Medications Cinacalcet (Sensipar) 60 mg PO BIDAC [facility] Last Admin: 09/07/18 08:17 Dose: 60 mg Heparin Sodium (Porcine) (Heparin) 5,000 units SC Q8 [facility]; Protocol Last Admin: 09/07/18 07:05 Dose: 5,000 units Hydralazine HCl (Apresoline) 10 mg PO Q6 PRN PRN Reason: Systolic Blood Pressure Piperacillin Sod/Tazobactam Sod (Zosyn 2.25 Gm In 0.9% 100 Ml) 2.25 gm in 100 mls @ 100 mls/hr IVPB Q8 [facility]; Protocol Last Admin: 09/07/18 07:06 Dose: 100 mls/hr Linezolid (Zyvox 600mg/300ml D5w) 600 mg in 300 mls @ 200 mls/hr IVPB Q12 [facility]; Protocol Stop: 09/11/18 10:01 Last Admin: 09/07/18 10:14 Dose: 200 mls/hr Insulin Human Lispro (Humalog High) 0 units SC ACHS [facility]; Protocol Last Admin: 09/07/18 10:14 Dose: Not Given Losartan Potassium (Cozaar) 100 mg PO DAILY [facility] Last Admin: 09/07/18 10:14 Dose: 100 mg Mupirocin (Bactroban Ointment) 0 gm TOP BID [facility] Last Admin: 09/06/18 17:16 Dose: 1 applic Pantoprazole Sodium (Protonix Ec Tab) 40 mg PO 0600 [facility] Last Admin: 09/07/18 07:05 Dose: 40 mg Sevelamer HCl (Renagel) 3,200 mg PO WM [facility] Last Admin: 09/07/18 08:16 Dose: 3,200 mg - Labs Labs: 09/07/18 07:30 09/07/18 07:30 - Constitutional Appears: Well, Non-toxic, No Acute Distress - Head Exam Head Exam: ATRAUMATIC, NORMOCEPHALIC - GI/Abdominal Exam Additional comments: B/L lower extremity focused exam: Vasc: DP/PT pulses palpable, Cap fill time < 3s, Temp gradient wnl, mild edema noted to lateral aspect of L foot Derm: Open ulceration noted to the dorsal- lateral aspect of the 5th MTPJ measuring approximately 2cm x 1.5x.2 cm with fibrogranular base, mildly macerated wound border, no erythema, mild serous drainage, mild purulence expressed, + probe to bone at this time, significant xerosis noted to dorsal aspect of foot bilaterally Neuro: Gross sensation diminished, protective sensation absent Ortho: No pain upon palpation, rotated R 5th digit, pes planus deformity, hammering of digits 4 and 5 on the R - Neurological Exam Neurological Exam: Alert, Awake, Oriented x3 - Psychiatric Exam Psychiatric exam: Normal Affect, Normal Mood Assessment and Plan - Assessment and Plan (Free Text) Assessment: 48M patient seen and evaluated at bedside for R foot 5th digit ulceration with suspected OM. Plan: Patient seen and evaluated at bedside with Dr. Baig Vitals, labs, chart reviewed; VSS, WBC 7.1, HbA1C 7.0, ESR 85 RLE MRI without contrast ordered; marrow edema in the 5th toe as well as dislocation of the PIPJ. Findings suspicious for OM LEONELA/PVR; relatively normal LEONELA/PVR at rest Deep wound culture taken from R 5th toe; results pending Local wound care: xeroform, DSD Rx: bactroban for local wound care starting tomorrow Patient does not want 5th digit amputation at this time, waiting for deep wound cultures and ID reccs for IV abx course for 4-6 weeks. At two week glenys, patient will be re-evaluated to determine if 5th digit amp is needed at that time.
--- NOTE | 2018-09-07 11:35 | CP.PCM.PN ---
<Ginette Hackett - Last Filed: 09/07/18 12:39> Subjective - Date & Time of Evaluation Date of Evaluation: 09/07/18 Time of Evaluation: 09:10 - Subjective Subjective: Internal medicine progress note for Dr. Bennett Patient seen and examined this am at bedside. STEFANEO per nursing. Patient has been moved rooms due to positive MRSA in foot culture. He has been made aware that the infection has progressed to his bone and that podiatry has recommended amputation of the toe. Patient has refused this and would like to try antibiotics first. At this time he denies any complaints including but not limited to WORKMAN, SOB, f/c, CP, abdominal pain and extremity pain/ weakness. 12 point ROS negative Objective - Vital Signs/Intake and Output Vital Signs (last 24 hours): Temp Pulse Resp BP Pulse Ox 97.8 F 83 19 134/86 95 09/07/18 06:00 09/07/18 06:00 09/07/18 06:00 09/07/18 06:00 09/07/18 06:00 Intake and Output: 09/07/18 09/07/18 06:59 18:59 Intake Total 360 Balance 360 - Medications Medications: Current Medications Cinacalcet (Sensipar) 60 mg PO BIDAC [facility] Last Admin: 09/07/18 08:17 Dose: 60 mg Heparin Sodium (Porcine) (Heparin) 5,000 units SC Q8 [facility]; Protocol Last Admin: 09/07/18 07:05 Dose: 5,000 units Hydralazine HCl (Apresoline) 10 mg PO Q6 PRN PRN Reason: Systolic Blood Pressure Piperacillin Sod/Tazobactam Sod (Zosyn 2.25 Gm In 0.9% 100 Ml) 2.25 gm in 100 mls @ 100 mls/hr IVPB Q8 [facility]; Protocol Last Admin: 09/07/18 07:06 Dose: 100 mls/hr Linezolid (Zyvox 600mg/300ml D5w) 600 mg in 300 mls @ 200 mls/hr IVPB Q12 [facility]; Protocol Stop: 09/11/18 10:01 Last Admin: 09/07/18 10:14 Dose: 200 mls/hr Insulin Human Lispro (Humalog High) 0 units SC ACHS [facility]; Protocol Last Admin: 09/07/18 10:14 Dose: Not Given Losartan Potassium (Cozaar) 100 mg PO DAILY [facility] Last Admin: 09/07/18 10:14 Dose: 100 mg Mupirocin (Bactroban Ointment) 0 gm TOP BID [facility] Last Admin: 09/06/18 17:16 Dose: 1 applic Pantoprazole Sodium (Protonix Ec Tab) 40 mg PO 0600 [facility] Last Admin: 09/07/18 07:05 Dose: 40 mg Sevelamer HCl (Renagel) 3,200 mg PO WM [facility] Last Admin: 09/07/18 08:16 Dose: 3,200 mg - Labs Labs: 09/07/18 07:30 09/07/18 07:30 - Constitutional Appears: Well, Non-toxic, No Acute Distress - Head Exam Head Exam: ATRAUMATIC, NORMOCEPHALIC - Eye Exam Eye Exam: EOMI - ENT Exam ENT Exam: Mucous Membranes Moist - Respiratory Exam Respiratory Exam: NORMAL BREATHING PATTERN - Cardiovascular Exam Cardiovascular Exam: REGULAR RHYTHM - GI/Abdominal Exam GI & Abdominal Exam: Soft. absent: Distended, Guarding, Tenderness - Extremities Exam Additional comments: podiatric dressing cdi and in place, no strikethrough - Neurological Exam Neurological Exam: Alert, Awake, Oriented x3 - Psychiatric Exam Psychiatric exam: Normal Affect, Normal Mood - Skin Skin Exam: Dry, Warm Assessment and Plan - Assessment and Plan (Free Text) Assessment: 48M w/ right foot osteomyelitis Plan: Diabetic Foot infection of 5th digit R foot - MRI foot showing osteo - C/w IV ABX as per ID - Zyvox / Zosyn - Wound Cx- proteus MRSA and Strep, placed on precautions - Blood Cx - negative @ 72H - Afebrile; WBC wnl - ESR/ CRP elevated - ID following appreciate recs - Podiatry following appreciate recs, pt declining toe amputation at this time - repeat deep cx taken results pending - will need 4-6 wks IV abx, may need PICC/midline vs may get during dialysis - podiatry will reassess for improvement at 2 weeks Hyperalemia + MERLIN on CKD stage IV - Patient mildly hyperkalemic this AM - Patient underwent HD yesterday will have dialysis tomorrow - baseline Cr: 4.7 - c/w renagel and Sinsipar per nephro recs - Nephro following, appreciate recs Anemia, chronic - Hgb: 10.3 - secondary to CKD DM - continue to monitor blood glucose, maintain euglycemia - ISS High - accuchecks ACHS HTN - Cozaar 100 mg daily - hydralazine PRN Ppx pantoprazole SCD Patient was seen examined discussed w/ attending Dr. Hope Hackett, PGY 1 <Hope Bennett R - Last Filed: 09/09/18 08:03> Objective - Vital Signs/Intake and Output Vital Signs (last 24 hours): Temp Pulse Resp BP Pulse Ox 98.6 F 77 20 107/20 L 98 09/08/18 06:00 09/08/18 06:00 09/08/18 06:00 09/08/18 06:00 09/08/18 06:00 - Labs Labs: 09/08/18 06:50 09/08/18 06:50 Attending/Attestation - Attestation I have personally seen and examined this patient.: Yes I have fully participated in the care of the patient.: Yes I have reviewed all pertinent clinical information, including history, physical exam and plan: Yes Notes (Text): Patient seen and examined by me with resident at 10:40 AM on 09/07/18. Case i ncluding HPI, physical exam, and assessment and plan discussed with resident. Agree with above with following additions/corrections. Patient is a 48-year-old male with past medical history significant for hypertension, type 2 diabetes, nephrotic syndrome, coronary artery disease, NSTEMI, and end-stage renal disease on dialysis Wednesday//Wednesday the presented to the emergency room with foul smell from right foot fifth digit ulceration. Patient states he feels ok. States he does not want an amputation of his right toe. Patient denies any pain or burning in his right foot. Patient denies chest pain or shortness of breath. No abdominal pain. No nausea or vomiting. No headaches or dizziness. No fevers or chills. No diarrhea or constipation. Physical exam: General: Awake and alert lying in bed in no acute distress HEENT: Normocephalic, atraumatic. Extraocular muscles intact, pupils equal and reactive, no scleral icterus. Oropharynx is pink moist. Neck is supple. Cardiovascular: Regular rhythm. Normal S1 and S2. No murmurs, rubs, or gallops appreciated Pulmonary: Normal respiratory effort. No rhonchi, rales, or wheezing appreciated Gastrointestinal: Soft, nondistended. Nontender. Positive bowel sounds all 4 quadrants. No guarding. Positive globular abdomen Musculoskeletal: Moves all extremities. No calf tenderness. Lower extremity edema bilaterally. Central nervous system: AAO x 3, CN2-12 grossly intact Dermatologic: Skin warm and dry. Right foot dressing clean, dry, and intact. Assessment and plan: Patient is a 48-year-old male with past medical history significant for hypertension, type 2 diabetes, nephrotic syndrome, coronary artery disease, NSTEMI, and end-stage renal disease on dialysis Wednesday//Wednesday the presented to the emergency room with foul smell from right foot fifth digit ulceration. 1. Right foot diabetic foot ulcer. Podiatry following, recommendations appreciated. MRI right foot per radiologist showed marrow edema in the 5th toe as well as dislocation of PIP joint, findings suspicious for osteomyelitis. Righ foot LEONELA per radiologist showed relatively normal LEONELA PVRs exam at rest. Continue Zyvox and Zosyn. Deep tissue wound culture pending. Right foot xray per radiologist showed dislocation of the fifth digit at the proximal phalanx, associated soft tissue swelling, 3 mm linear hyperdensity adjacent/medial to proximal first phalanx, additional 2 mm hyperdensity started on a single view medial to distal aspects of the third proximal phalanx, tiny fracture fragment foreign body cannot be entirely excluded, apparent soft tissue laceration of the distal fifth phalanx. Blood cultures with no growth. Patient afebrile. No leuko cytosis. ESR elevated. 2. Hyperkalemia. Improved. Continue with dialysis. Continue to monitor pota ssium. 3. End-stage renal disease on dialysis. Continue dialysis Wednesday//Wednesday. Continue Sensipar and Renagel. Nephrology following, recommendations appreciated. 4. Type 2 diabetes. Continue insulin sliding scale. Continue to monitor Accu- Cheks. 5. Hypertension. Continue Cozaar. Hydralazine prn. 6. GI/DVT prophylaxis. Protonix/heparin 7. Patient is a full code Case was discussed in detail with the patient regarding current diagnosis and treatment plan. All questions answered.
--- NOTE | 2018-09-07 13:30 | CP.PCM.PN ---
Subjective - Date & Time of Evaluation Date of Evaluation: 09/07/18 Time of Evaluation: 09:00 - Subjective Subjective: Had deep wound cx taken by Dr. Baig, according to her all the way to the bone, no fevers. Objective - Vital Signs/Intake and Output Vital Signs (last 24 hours): Temp Pulse Resp BP Pulse Ox 98.8 F 86 18 141/92 H 94 L 09/06/18 08:09 09/06/18 08:09 09/06/18 08:09 09/06/18 08:09 09/06/18 08:09 Intake and Output: 09/06/18 09/06/18 06:59 18:59 Intake Total 360 Balance 360 - Medications Medications: Current Medications Cinacalcet (Sensipar) 60 mg PO BIDAC [facility] Last Admin: 09/06/18 11:11 Dose: Not Given Heparin Sodium (Porcine) (Heparin) 5,000 units SC Q8 [facility]; Protocol Hydralazine HCl (Apresoline) 10 mg PO Q6 PRN PRN Reason: Systolic Blood Pressure Piperacillin Sod/Tazobactam Sod (Zosyn 2.25 Gm In 0.9% 100 Ml) 2.25 gm in 100 mls @ 100 mls/hr IVPB Q8 [facility]; Protocol Last Admin: 09/06/18 05:53 Dose: 100 mls/hr Linezolid (Zyvox 600mg/300ml D5w) 600 mg in 300 mls @ 200 mls/hr IVPB Q12 [facility]; Protocol Stop: 09/11/18 10:01 Last Admin: 09/06/18 11:12 Dose: Not Given Insulin Human Lispro (Humalog High) 0 units SC ACHS [facility]; Protocol Last Admin: 09/06/18 11:11 Dose: Not Given Losartan Potassium (Cozaar) 100 mg PO DAILY [facility] Last Admin: 09/06/18 11:11 Dose: Not Given Mupirocin (Bactroban Ointment) 0 gm TOP BID [facility] Last Admin: 09/06/18 11:11 Dose: Not Given Pantoprazole Sodium (Protonix Ec Tab) 40 mg PO 0600 [facility] Last Admin: 09/06/18 05:54 Dose: 40 mg Sevelamer HCl (Renagel) 3,200 mg PO WM [facility] Last Admin: 12/18/18 12:06 Dose: Not Given - Labs Labs: 09/06/18 06:20 09/06/18 06:20 - Constitutional Appears: Chronically Ill - Head Exam Head Exam: NORMAL INSPECTION - Respiratory Exam Respiratory Exam: Decreased Breath Sounds - Cardiovascular Exam Cardiovascular Exam: +S1, +S2 - GI/Abdominal Exam GI & Abdominal Exam: Soft. absent: Tenderness Assessment and Plan - Assessment and Plan (Free Text) Plan: Assessment Right 5th toe infected ulcer with osteomyelitis, R/O PVD HTN DM history of nephrotic syndrome ESRD on HD Plan continue Zyvox and Zosyn day 4 pending wound cx taken today;follow up LEONELA's; reviewed MRI of the foot discussed with Dr. Baig will continue monitor clinically
[2018-09-07] MEDS: Mupirocin 2% Ointment 15 GM TUBE TOP SCH (16:43)
--- NOTE | 2018-09-07 20:32 | CP.PCM.PN ---
Subjective - Date & Time of Evaluation Date of Evaluation: 09/07/18 Time of Evaluation: 13:00 - Subjective Subjective: Patient reports feeling well; tolerating diet, not eating any outside food, only what's given here; Objective - Vital Signs/Intake and Output Vital Signs (last 24 hours): Temp Pulse Resp BP Pulse Ox 99.6 F 86 18 148/87 100 09/07/18 13:31 09/07/18 13:31 09/07/18 13:31 09/07/18 13:31 09/07/18 13:31 - Medications Medications: Current Medications Cinacalcet (Sensipar) 60 mg PO BIDAC [facility] Last Admin: 09/07/18 16:43 Dose: 60 mg Heparin Sodium (Porcine) (Heparin) 5,000 units SC Q8 [facility]; Protocol Last Admin: 09/07/18 14:00 Dose: 5,000 units Hydralazine HCl (Apresoline) 10 mg PO Q6 PRN PRN Reason: Systolic Blood Pressure Piperacillin Sod/Tazobactam Sod (Zosyn 2.25 Gm In 0.9% 100 Ml) 2.25 gm in 100 mls @ 100 mls/hr IVPB Q8 [facility]; Protocol Last Admin: 09/07/18 14:00 Dose: 100 mls/hr Linezolid (Zyvox 600mg/300ml D5w) 600 mg in 300 mls @ 200 mls/hr IVPB Q12 [facility]; Protocol Stop: 09/11/18 10:01 Last Admin: 09/07/18 10:14 Dose: 200 mls/hr Insulin Human Lispro (Humalog High) 0 units SC ACHS [facility]; Protocol Last Admin: 09/07/18 18:45 Dose: Not Given Losartan Potassium (Cozaar) 100 mg PO DAILY [facility] Last Admin: 09/07/18 10:14 Dose: 100 mg Mupirocin (Bactroban Ointment) 0 gm TOP BID [facility] Last Admin: 09/07/18 16:43 Dose: 1 applic Sevelamer HCl (Renagel) 3,200 mg PO WM [facility] Last Admin: 09/07/18 16:43 Dose: 3,200 mg - Labs Labs: 09/07/18 07:30 09/07/18 07:30 - Constitutional Appears: Non-toxic, No Acute Distress - Eye Exam Eye Exam: Normal appearance - Respiratory Exam Respiratory Exam: Clear to Ausculation Bilateral. absent: Respiratory Distress - Cardiovascular Exam Cardiovascular Exam: RRR, +S1 - GI/Abdominal Exam GI & Abdominal Exam: Soft. absent: Distended, Tenderness - Extremities Exam Additional comments: no leg edema - Neurological Exam Neurological Exam: Alert, Awake - Psychiatric Exam Psychiatric exam: Normal Affect, Normal Mood. absent: Agitated - Skin Skin Exam: Warm. absent: Cyanosis Assessment and Plan (1) ESRD on hemodialysis Assessment & Plan: Stable volume status; high/normal K despite getting HD last 2 days; next HD for tomorrow per routine; Status: Acute (2) Hypertensive CKD, ESRD on dialysis Assessment & Plan: BP controlled, continue current meds; Status: Chronic (3) Chronic kidney disease-mineral and bone disorder Assessment & Plan: Phos has been elevated, keep on sevelamer 4 tabs; continue sensipar; Status: Chronic (4) Diabetic foot infection Assessment & Plan: Possible OM, s/p repeat deep culture today, will f/u to decide on whether abx can be given on HD (need to avoid PICC line in this relatively young dialysis patient who will likely need another AVF/AVG in the near future; if abx can't be given with HD, should get direct IJ tunneled line rather than traditional PICC); Status: Acute (5) Anemia in chronic kidney disease Assessment & Plan: Hgb around goal, will dose EPO per outpatient protocol; Status: Chronic
[2018-09-07 22:21] VITALS: RESP 20
[2018-09-08] MEDS: Piperacillin/Tazobact 2.25gm 2.25 GM/100 ML BAG IVPB SCH (06:29)
[2018-09-08 07:18] LABS: BASO # 0.02 K/mm3 (0.0-2.0); BASO % 0.3 % (0.0-3.0); EOS # 0.2 (0.0-0.7); EOS % 3.1 % (1.5-5.0); GRAN # 3.39 (1.4-6.5); GRAN % 57.4 % (50.0-68.0); HEMOGLOBIN 10.7 g/dL (14.0-18.0); LYMPH % 33.1 % (22.0-35.0); MEAN CELL VOLUME 90.8 fl (80.0-105.0); MEAN CORPUSCULAR HEMOGLOBIN 28.2 pg (25.0-35.0); MEAN CORPUSCULAR HGB CONC 31.1 g/dl (31.0-37.0); MEAN PLATELET VOLUME 9.7 fl (7.0-11.0); MONO # 0.4 (0.1-0.6); MONO % 6.1 % (1.0-6.0); RBC 3.79 10^6/uL (3.5-6.1); RED CELL DISTRIBUTION WIDTH 15.4 % (11.5-14.5); WHITE BLOOD COUNT 5.9 10^3/uL (4.5-11.0)
[2018-09-08 08:01] VITALS: BP 107/20; PULSE 77; TEMP 98.6; O2SAT 98
[2018-09-08 08:31] LABS: ALB/GLOB RATIO 1.1 (1.1-1.8); ALBUMIN 4.2 g/dL (3.0-4.8); CALCIUM 8.7 mg/dL (8.4-10.5)
[2018-09-08] MEDS: Insulin Lispro (HUMAlog) HIGH Coverage SC SCH ×3 (08:47→16:19)
--- NOTE | 2018-09-08 10:23 | CP.PCM.PN ---
Subjective - Date & Time of Evaluation Date of Evaluation: 09/08/18 Time of Evaluation: 10:23 - Subjective Subjective: Podiatry Progress Note for Dr. Baig: 48M patient seen and evaluated at bedside Patient resting comfortably and in no acute distress. Patient just returned from dialysis. He states that his toe has started hurting more, however the pain is manageable at this time. Denies any other pedal complaints. Denies N/V/F/SOB/CP. Objective - Vital Signs/Intake and Output Vital Signs (last 24 hours): Temp Pulse Resp BP Pulse Ox 98.6 F 77 20 107/20 L 98 09/08/18 06:00 09/08/18 06:00 09/08/18 06:00 09/08/18 06:00 09/08/18 06:00 - Medications Medications: Current Medications Cinacalcet (Sensipar) 60 mg PO BIDAC [facility] Last Admin: 09/07/18 16:43 Dose: 60 mg Heparin Sodium (Porcine) (Heparin) 5,000 units SC Q8 [facility]; Protocol Last Admin: 09/08/18 06:29 Dose: Not Given Hydralazine HCl (Apresoline) 10 mg PO Q6 PRN PRN Reason: Systolic Blood Pressure Piperacillin Sod/Tazobactam Sod (Zosyn 2.25 Gm In 0.9% 100 Ml) 2.25 gm in 100 mls @ 100 mls/hr IVPB Q8 [facility]; Protocol Last Admin: 09/08/18 06:29 Dose: Not Given Linezolid (Zyvox 600mg/300ml D5w) 600 mg in 300 mls @ 200 mls/hr IVPB Q12 [facility]; Protocol Stop: 09/11/18 10:01 Last Admin: 09/07/18 21:18 Dose: 200 mls/hr Insulin Human Lispro (Humalog High) 0 units SC ACHS [facility]; Protocol Last Admin: 09/08/18 08:47 Dose: Not Given Losartan Potassium (Cozaar) 100 mg PO DAILY [facility] Last Admin: 09/07/18 10:14 Dose: 100 mg Mupirocin (Bactroban Ointment) 0 gm TOP BID [facility] Last Admin: 09/07/18 16:43 Dose: 1 applic Sevelamer HCl (Renagel) 3,200 mg PO WM [facility] Last Admin: 09/07/18 16:43 Dose: 3,200 mg - Labs Labs: 09/08/18 06:50 09/08/18 06:50 - Constitutional Appears: Well, Non-toxic, No Acute Distress - Head Exam Head Exam: ATRAUMATIC, NORMOCEPHALIC - Extremities Exam Additional comments: B/L lower extremity focused exam: Vasc: DP/PT pulses palpable, Cap fill time < 3s, Temp gradient wnl, mild edema noted to lateral aspect of L foot Derm: Open ulceration noted to the dorsal- lateral aspect of the 5th MTPJ measur ing approximately 2cm x 1.5x.2 cm with fibrogranular base, mildly macerated wound border, no erythema, mild serous drainage, + probe to bone at this time, significant xerosis noted to dorsal aspect of foot bilaterally Neuro: Gross sensation diminished, protective sensation absent Ortho: No pain upon palpation, rotated R 5th digit, pes planus deformity, hammering of digits 4 and 5 on the R - Neurological Exam Neurological Exam: Alert, Awake, Oriented x3 - Psychiatric Exam Psychiatric exam: Normal Affect, Normal Mood Assessment and Plan - Assessment and Plan (Free Text) Assessment: 48M patient seen and evaluated at bedside for R foot 5th digit ulceration with OM. Plan: Patient seen and evaluated at bedside with Dr. Baig Vitals, labs, chart reviewed; VSS, WBC 5.9, HbA1C 7.0, ESR 85 RLE MRI without contrast ordered; marrow edema in the 5th toe as well as dislocation of the PIPJ. Findings suspicious for OM LEONELA/PVR; relatively normal LEONELA/PVR at rest Deep wound culture taken from R 5th toe; staph aureus 4-6 IV abx per ID reccs Local wound care: xeroform, DSD Rx: bactroban for local wound care starting tomorrow Patient does not want 5th digit amputation at this time, waiting for deep wound cultures and ID reccs for IV abx course for 4-6 weeks. At two week glenys, patient will be re-evaluated to determine if 5th digit amp is needed at that time.
--- NOTE | 2018-09-08 12:37 | CP.PCM.PN ---
Subjective - Date & Time of Evaluation Date of Evaluation: 09/08/18 Time of Evaluation: 08:55 - Subjective Subjective: No new complaints, not in distress, no fevers. Objective - Vital Signs/Intake and Output Vital Signs (last 24 hours): Temp Pulse Resp BP Pulse Ox 97.8 F 83 19 134/86 95 09/07/18 06:00 09/07/18 06:00 09/07/18 06:00 09/07/18 06:00 09/07/18 06:00 Intake and Output: 09/07/18 09/07/18 06:59 18:59 Intake Total 360 Balance 360 - Medications Medications: Current Medications Cinacalcet (Sensipar) 60 mg PO BIDAC [facility] Last Admin: 09/07/18 08:17 Dose: 60 mg Heparin Sodium (Porcine) (Heparin) 5,000 units SC Q8 [facility]; Protocol Last Admin: 09/07/18 07:05 Dose: 5,000 units Hydralazine HCl (Apresoline) 10 mg PO Q6 PRN PRN Reason: Systolic Blood Pressure Piperacillin Sod/Tazobactam Sod (Zosyn 2.25 Gm In 0.9% 100 Ml) 2.25 gm in 100 mls @ 100 mls/hr IVPB Q8 [facility]; Protocol Last Admin: 09/07/18 07:06 Dose: 100 mls/hr Linezolid (Zyvox 600mg/300ml D5w) 600 mg in 300 mls @ 200 mls/hr IVPB Q12 [facility]; Protocol Stop: 09/11/18 10:01 Last Admin: 09/07/18 10:14 Dose: 200 mls/hr Insulin Human Lispro (Humalog High) 0 units SC ACHS [facility]; Protocol Last Admin: 09/07/18 12:08 Dose: 2 unit Losartan Potassium (Cozaar) 100 mg PO DAILY [facility] Last Admin: 09/07/18 10:14 Dose: 100 mg Mupirocin (Bactroban Ointment) 0 gm TOP BID [facility] Last Admin: 09/06/18 17:16 Dose: 1 applic Pantoprazole Sodium (Protonix Ec Tab) 40 mg PO 0600 [facility] Last Admin: 09/07/18 07:05 Dose: 40 mg Sevelamer HCl (Renagel) 3,200 mg PO WM [facility] Last Admin: 09/07/18 12:08 Dose: 3,200 mg - Labs Labs: 09/07/18 07:30 09/07/18 07:30 - Constitutional Appears: Chronically Ill - Head Exam Head Exam: NORMAL INSPECTION - Respiratory Exam Respiratory Exam: Decreased Breath Sounds - Cardiovascular Exam Cardiovascular Exam: +S1, +S2 - GI/Abdominal Exam GI & Abdominal Exam: Soft. absent: Tenderness Assessment and Plan - Assessment and Plan (Free Text) Plan: Assessment Right 5th toe infected ulcer with osteomyelitis, R/O PVD HTN DM history of nephrotic syndrome ESRD on HD Plan continue Zyvox and Zosyn day 5 pending wound cx taken yesterday; follow up LEONELA's; reviewed MRI of the foot discussed with Dr. Baig will continue monitor clinically
--- NOTE | 2018-09-08 12:53 | CP.PCM.PN ---
Subjective - Date & Time of Evaluation Date of Evaluation: 09/08/18 Time of Evaluation: 09:35 - Subjective Subjective: Internal Medicine progress note for Dr. Bennett Patient seen and examined this am at bedside. OH per nursing. Patient was seen in dialysis today, tolerating well. He has no complaints and 12 point ROS is negative at this time. He specifically denies any pain in his right foot. Objective - Vital Signs/Intake and Output Vital Signs (last 24 hours): Temp Pulse Resp BP Pulse Ox 98.6 F 77 20 107/20 L 98 09/08/18 06:00 09/08/18 06:00 09/08/18 06:00 09/08/18 06:00 09/08/18 06:00 - Medications Medications: Current Medications Cinacalcet (Sensipar) 60 mg PO BIDAC [facility] Last Admin: 09/07/18 16:43 Dose: 60 mg Heparin Sodium (Porcine) (Heparin) 5,000 units SC Q8 [facility]; Protocol Last Admin: 09/08/18 06:29 Dose: Not Given Hydralazine HCl (Apresoline) 10 mg PO Q6 PRN PRN Reason: Systolic Blood Pressure Piperacillin Sod/Tazobactam Sod (Zosyn 2.25 Gm In 0.9% 100 Ml) 2.25 gm in 100 mls @ 100 mls/hr IVPB Q8 [facility]; Protocol Last Admin: 09/08/18 06:29 Dose: Not Given Linezolid (Zyvox 600mg/300ml D5w) 600 mg in 300 mls @ 200 mls/hr IVPB Q12 [facility]; Protocol Stop: 09/11/18 10:01 Last Admin: 09/07/18 21:18 Dose: 200 mls/hr Insulin Human Lispro (Humalog High) 0 units SC ACHS [facility]; Protocol Last Admin: 09/08/18 08:47 Dose: Not Given Losartan Potassium (Cozaar) 100 mg PO DAILY [facility] Last Admin: 09/07/18 10:14 Dose: 100 mg Mupirocin (Bactroban Ointment) 0 gm TOP BID [facility] Last Admin: 09/07/18 16:43 Dose: 1 applic Sevelamer HCl (Renagel) 3,200 mg PO WM [facility] Last Admin: 09/07/18 16:43 Dose: 3,200 mg - Labs Labs: 09/08/18 06:50 09/08/18 06:50 - Constitutional Appears: Well, Non-toxic, No Acute Distress - Head Exam Head Exam: ATRAUMATIC, NORMOCEPHALIC - Eye Exam Eye Exam: EOMI - ENT Exam ENT Exam: Mucous Membranes Moist - Respiratory Exam Respiratory Exam: NORMAL BREATHING PATTERN - Cardiovascular Exam Cardiovascular Exam: REGULAR RHYTHM - GI/Abdominal Exam GI & Abdominal Exam: Soft. absent: Distended, Guarding, Tenderness - Extremities Exam Extremities Exam: absent: Calf Tenderness, Pedal Edema Additional comments: dressing and yelitza bandage in place cdi no strikethrough - Neurological Exam Neurological Exam: Alert, Awake, Oriented x3 - Psychiatric Exam Psychiatric exam: Normal Affect, Normal Mood - Skin Skin Exam: Dry, Intact, Normal Color, Warm Assessment and Plan - Assessment and Plan (Free Text) Assessment: 48M w/ PMH HTN, DM, Nephrotic Syndrome, NSTEMI, ESRD - TTS dialysis, presented to ED w/ c/o foul odor + pain in 5th digit of Right foot x1 week prior to admission. Patient subsequently admitted for diabetic foot infection and osteomy elitis Plan: Diabetic Foot infection of 5th digit R foot - MRI foot showing osteo - C/w IV ABX as per ID - Zyvox / Zosyn - Wound Cx- proteus MRSA and Strep, placed on precautions - repeat wdeep cx Staph aureus (Methicillin sensitive) - Blood Cx x 2 - negative @ 4 days - Afebrile; WBC wnl - ID following appreciate recs - Podiatry following appreciate recs, pt declining toe amputation at this time - repeat deep cx taken results pending - will need 4-6 wks IV abx, may need PICC/midline vs may get during dialysis depending on ID recs - podiatry will reassess for improvement at 2 weeks Hyperkalemia + MERLIN on CKD stage IV - Patient hyperkalemic this AM (5.5) - Patient underwent HD today - baseline Cr: 4.7 Cr today 11.8 - c/w renagel and Sinsipar per nephro recs - Nephro following, appreciate recs Anemia, chronic - Hgb: 10.7 - secondary to CKD DM - continue to monitor blood glucose, maintain euglycemia - ISS High - accuchecks ACHS HTN - Cozaar 100 mg daily - hydralazine PRN Ppx pantoprazole SCD Patient was seen examined discussed w/ attending Dr. Hope Hackett, PGY 1
[2018-09-08] MEDS: Mupirocin 2% Ointment 15 GM TUBE TOP SCH (13:29)
[2018-09-08] MEDS: Linezolid 600 mg in D5W 300 ml 600 MG/300 ML BAG IVPB SCH (13:31)
--- NOTE | 2018-09-08 13:31 | CP.PCM.PN ---
Subjective - Date & Time of Evaluation Date of Evaluation: 09/08/18 Time of Evaluation: 13:31 Objective - Vital Signs/Intake and Output Vital Signs (last 24 hours): Temp Pulse Resp BP Pulse Ox 98.6 F 77 20 107/20 L 98 09/08/18 06:00 09/08/18 06:00 09/08/18 06:00 09/08/18 06:00 09/08/18 06:00 - Medications Medications: Current Medications Cinacalcet (Sensipar) 60 mg PO BIDAC [facility] Last Admin: 09/08/18 13:30 Dose: Not Given Heparin Sodium (Porcine) (Heparin) 5,000 units SC Q8 MAVIS; Protocol Last Admin: 09/08/18 06:29 Dose: Not Given Hydralazine HCl (Apresoline) 10 mg PO Q6 PRN PRN Reason: Systolic Blood Pressure Piperacillin Sod/Tazobactam Sod (Zosyn 2.25 Gm In 0.9% 100 Ml) 2.25 gm in 100 mls @ 100 mls/hr IVPB Q8 MAVIS; Protocol Last Admin: 09/08/18 06:29 Dose: Not Given Linezolid (Zyvox 600mg/300ml D5w) 600 mg in 300 mls @ 200 mls/hr IVPB Q12 MAVIS; Protocol Stop: 09/11/18 10:01 Last Admin: 09/07/18 21:18 Dose: 200 mls/hr Insulin Human Lispro (Humalog High) 0 units SC ACHS MAVIS; Protocol Last Admin: 09/08/18 13:30 Dose: Not Given Losartan Potassium (Cozaar) 100 mg PO DAILY [facility] Last Admin: 09/08/18 13:30 Dose: Not Given Mupirocin (Bactroban Ointment) 0 gm TOP BID MAVIS Last Admin: 09/08/18 13:29 Dose: Not Given Sevelamer HCl (Renagel) 3,200 mg PO WM [facility] Last Admin: 09/08/18 13:30 Dose: Not Given - Labs Labs: 09/08/18 06:50 09/08/18 06:50
--- NOTE | 2018-09-08 17:28 | CP.PCM.DIS ---
Provider - Provider Date of Admission: 09/05/18 14:19 Attending physician: Hope Bennett DO Consults: 09/04/18 01:17 Nephrology Consult Stat Comment: ESRD, tues/thurs/satur, creatinine 8.3 Consulting Provider: Jay Davis Consulting Physician: Jay Davis Reason for Consult: ESRD, tues/thurs/satur, creatinine 8.3 09/04/18 01:46 Podiatry Consult Routine Comment: rt. foot cellulitis/5th digit toe subluxed/disloca Consulting Provider: Jocy Baig Consulting Physician: Jocy Baig Reason for Consult: rt. foot cellulitis/5th digit toe subluxed/disloca 09/04/18 02:17 Wound Care [Nursing Referral for Wound Care] Routine Comment: Physician Instructions: Reason For Exam: diabeter foot cellulitis/deformity foot and toe 09/04/18 02:48 Physician Consult Routine Comment: Consulting Provider: Sancho Brownlee Consulting Physician: Sancho Brownlee Reason for Consult: 5th digit right foot infection Time Spent in preparation of Discharge (in minutes): 45 Hospital Course - Lab Results Lab Results: Micro Results 09/07/18 10:23 Toe Gram Stain - Final 09/07/18 10:23 Toe Wound Culture - Preliminary Staphylococcus Aureus 09/04/18 06:30 Blood-During Dialysis Blood Culture - Preliminary NO GROWTH AFTER 4 DAYS 09/04/18 00:16 Blood-During Dialysis Blood Culture - Preliminary NO GROWTH AFTER 4 DAYS 09/04/18 00:16 Toe Gram Stain - Final 09/04/18 00:16 Toe Wound Culture - Final Proteus Mirabilis Methicillin Resistant S Aureus Beta Hemolytic Strep Group B Most Recent Lab Values WBC 5.9 10^3/uL (4.5-11.0) D 09/08/18 06:50 RBC 3.79 10^6/uL (3.5-6.1) 09/08/18 06:50 Hgb 10.7 g/dL (14.0-18.0) L 09/08/18 06:50 Hct 34.4 % (42.0-52.0) L 09/08/18 06:50 MCV 90.8 fl (80.0-105.0) 09/08/18 06:50 MCH 28.2 pg (25.0-35.0) 09/08/18 06:50 MCHC 31.1 g/dl (31.0-37.0) 09/08/18 06:50 RDW 15.4 % (11.5-14.5) H 09/08/18 06:50 Plt Count 240 10^3/uL (120.0-450.0) 09/08/18 06:50 MPV 9.7 fl (7.0-11.0) 09/08/18 06:50 Gran % 57.4 % (50.0-68.0) 09/08/18 06:50 Lymph % (Auto) 33.1 % (22.0-35.0) 09/08/18 06:50 [place] % (Auto) 6.1 % (1.0-6.0) H 09/08/18 06:50 Eos % (Auto) 3.1 % (1.5-5.0) 09/08/18 06:50 Baso % (Auto) 0.3 % (0.0-3.0) 09/08/18 06:50 Gran # 3.39 (1.4-6.5) 09/08/18 06:50 Lymph # (Auto) 2.0 (1.2-3.4) 09/08/18 06:50 [place] # (Auto) 0.4 (0.1-0.6) 09/08/18 06:50 Eos # (Auto) 0.2 (0.0-0.7) 09/08/18 06:50 Baso # (Auto) 0.02 K/mm3 (0.0-2.0) 09/08/18 06:50 ESR 85 mm/hr (0.0-15.0) H 09/05/18 19:40 Sodium 134 mmol/L (132-148) 09/08/18 06:50 Potassium 5.5 mmol/L (3.6-5.0) H 09/08/18 06:50 Chloride 99 mmol/L (98-107) 09/08/18 06:50 Carbon Dioxide 23 mmol/L (21-33) 09/08/18 06:50 Anion Gap 18 (10-20) 09/08/18 06:50 BUN 51 mg/dL (7-21) H 09/08/18 06:50 Creatinine 11.8 mg/dl (0.8-1.5) H* D 09/08/18 06:50 Est GFR ( Amer) 6 09/08/18 06:50 Est GFR (Non-Af Amer) 5 09/08/18 06:50 POC Glucose (mg/dL) 200 mg/dL (65-110) H 09/08/18 16:16 Random Glucose 102 mg/dL (70-110) 09/08/18 06:50 Hemoglobin A1c 7.0 % (4.2-6.5) H 09/05/18 19:40 Calcium 8.7 mg/dL (8.4-10.5) 09/08/18 06:50 Phosphorus 5.7 mg/dL (2.5-4.5) H 09/08/18 06:50 Magnesium 2.0 mg/dL (1.7-2.2) 09/08/18 06:50 Total Bilirubin 0.4 mg/dL (0.2-1.3) 09/08/18 06:50 AST 29 U/L (17-59) 09/08/18 06:50 ALT 31 U/L (7-56) 09/08/18 06:50 Alkaline Phosphatase 111 U/L (38-126) 09/08/18 06:50 Total Creatine Kinase 239 U/L (35-230) H 09/04/18 00:16 CK-MB (CK-2) 2.0 ng/mL (0.0-3.6) 09/04/18 00:16 CK-MB (CK-2) % Cancelled 09/04/18 00:16 C-React Prot High Sens > 15.00 mg/L (1.00-3.00) H 09/04/18 00:16 Total Protein 8.2 g/dL (5.8-8.3) 09/08/18 06:50 Albumin 4.2 g/dL (3.0-4.8) 09/08/18 06:50 Globulin 4.0 gm/dL 09/08/18 06:50 Albumin/Globulin Ratio 1.1 (1.1-1.8) 09/08/18 06:50 Procalcitonin 2.38 NG/ML (0.19-0.49) H 09/04/18 00:16 Hep Bs Antigen Negative (NEGATIVE) 09/06/18 08:00 Hep Bs Antibody Positive (NEGATIVE) 09/06/18 08:00 - Hospital Course Hospital Course: Upon presentation Pt is a 48 yo male with a PMH of HTN, DM, nephrotic syndrome, NSTEMI, ESRD, Wed//Wed with his last dialysis yesterday 09/03/18 who presents to the ED complaining of his right foot, 5th digit having a foul smell and wound for the past week. Pt states he has had the wound on his foot which has never healed. The skin has started to peel and it has a foul discharge. Pt denies fever or chills. on initial lab evaluation pt was found to have a normal WBC count and microcytic anemia likely 2/2 to his CKD/ESRD, elevated potassium, elevated CRP, CK and BUN/Cr. Xrays and MRI were completed of the foot revealing findings suspicious for osteomyelitis. Podiatry, infectious disease, and nephrology were consulted to participate in this patient's care. Podiatry recommendation was for amputation of the right 5th toe on the right foot, the patient was not amenable to this and refused surgery. aptient was placed on IV antibiotics per ID recommendations. Patient continued to receive hemodialysis during his stay with several extra sessions in addition to his TTS schedule due to electrolyte imbalances and worsening creatinine. Blood cultures were negative throughout his stay. Initial superficial wound cultures revealed a polymicrobial wound with proteus mirabilis, MRSA and beta hemolytic strep. repeat deep wound culture revealed Methicillin sensitive Staph aureus. During his stay the patient required only 2 units of insulin for blood sugar control. After discussion with the net programmer analyst and the infectious disease physician it was their recommendation that the patient receive IV Vancomycin after each dialysis for 4-6 weeks and a CRP and vacomycin trough weekly before dialysis. Upon discharge the patient was given all of his medications at the bedside, educated on their dosing and instructed on where and when he would need to return for dialysis. The patient was deemed medically stable by Dr. Hope Bennett and discharged from the hospital to home. - Date & Time of H&P Date of H&P: 09/04/18 Time of H&P: 02:53 Discharge Exam - Head Exam Head Exam: ATRAUMATIC, NORMOCEPHALIC - Eye Exam Eye Exam: EOMI - ENT Exam ENT Exam: Mucous Membranes Moist - Respiratory Exam Respiratory Exam: Clear to PA & Lateral, NORMAL BREATHING PATTERN - Cardiovascular Exam Cardiovascular Exam: REGULAR RHYTHM - GI/Abdominal Exam GI & Abdominal Exam: Soft. absent: Distended, Guarding, Tenderness - Extremities Exam Extremities exam: normal capillary refill, pedal pulses present Additional comments: wound/ infection to right fifth digit, osteomyelitis confirmed on MRI, podiatry dressing in place cdi - Neurological Exam Neurological exam: Alert, Oriented x3 - Psychiatric Exam Psychiatric exam: Normal Affect, Normal Mood - Skin Skin Exam: Dry, Normal Color, Warm Discharge Plan - Discharge Medications Prescriptions: Cinacalcet [Sensipar] 60 mg PO BIDAC #120 tab Losartan [Cozaar] 100 mg PO DAILY #30 tab Mupirocin 2% Ointment [Bactroban Ointment] 0 gm TOP BID #1 tube Sevelamer [Renagel] 3,200 mg PO WM #360 tab Vancomycin/0.9 % Sod Chloride [Vanco 1 Gram/150 ml-0.9% NaCl] 1 gm IV TTS 42 Days plast..bag - Follow Up Plan Condition: STABLE Disposition: HOME/ ROUTINE Instructions: Diabetes and Infections, Renal Failure Diet (DC), Hyperkalemia (DC) Additional Instructions: During your stay you were treated with IV antibiotics for an infection in the 5th toe of your right foot that had spread to the bone. You were also treated for your kidney disease with dialysis as well as medications to improve your electrolyte balances. Upon Discharge from the Hospital you will need to follow up with your primary care physician within 3-5 days You will additionally need to continue dialysis Wednesday, , and Wednesday at which time you will receive IV antibiotics to continue treating your foot infection. After 2 weeks of treatment you will be reevaluated by Dr. Baig, the client technologies specialist, for future care of the wound and continuation of antibiotics. It was the recommendation of the podiatry team that you proceed with toe amputation but as you were not agreeable to this plan a trial of IV antibiotics is being undertaken. You will need to have weekly lab work while receiving IV antibiotics such as CRP levels and Vancomycin trough levels You will additionally need to follow up in the wound care clinic at [facility] with Dr. Baig for further care of your foot on Wednesday09/12/18. Follow up with your net programmer analyst Dr. Davis within 3-5 days. Upon discharge you will be given the following medications: Sensipar 60 mg by mouth with breakfast and dinner Renagel 3200 mg three times daily by mouth with meals Cozaar 100 mg by mouth daily mupirocin ointment to be applied to the infected toe three times daily If your symptoms recur or you experience new symptoms please return to the nearest Emergency room immediately for evaluation. Referrals: Jocy Baig DPM [Staff Provider] - Jay Davis MD [Staff Provider] - Artur House MD [Family Provider] -
== END 2018-09-08 20:45 | disposition home or self-care (01) | DRG 638 ==
LOC: ED 23:16 → ERH 09-04 01:51 → 2RNO 09-04 03:24 → 5RNO 09-04 13:31 → 5RSO 09-04 14:10 → OBSVTOIN 09-05 14:19 → 5RNO 09-07 10:10
PROVIDERS: ADMIT Internal Medicine; ATTEND Hospitalist
PROC: 5A1D70Z Performance of Urinary Filtration, Intermittent, Less than 6 Hours Per Day (ICD-10-PCS; principal; 2018-09-05)
DX: E11.69 Type 2 diabetes mellitus with other specified complication (principal); M86.8X7 Other osteomyelitis, ankle and foot; I13.2 Hypertensive heart and chronic kidney disease with heart failure and with stage 5 chronic kidney disease, or end stage renal disease; N18.6 End stage renal disease; N25.81 Secondary hyperparathyroidism of renal origin; E11.621 Type 2 diabetes mellitus with foot ulcer; E11.21 Type 2 diabetes mellitus with diabetic nephropathy; E11.22 Type 2 diabetes mellitus with diabetic chronic kidney disease; D63.1 Anemia in chronic kidney disease; I50.9 Heart failure, unspecified; L97.519 Non-pressure chronic ulcer of other part of right foot with unspecified severity; E87.5 Hyperkalemia; B95.62 Methicillin resistant Staphylococcus aureus infection as the cause of diseases classified elsewhere; B96.4 Proteus (mirabilis) (morganii) as the cause of diseases classified elsewhere; B95.1 Streptococcus, group B, as the cause of diseases classified elsewhere; M24.374 Pathological dislocation of right foot, not elsewhere classified; G47.33 Obstructive sleep apnea (adult) (pediatric); I25.10 Atherosclerotic heart disease of native coronary artery without angina pectoris; E83.39 Other disorders of phosphorus metabolism; E78.5 Hyperlipidemia, unspecified; Z99.2 Dependence on renal dialysis; I25.2 Old myocardial infarction; Z79.4 Long term (current) use of insulin; Z87.891 Personal history of nicotine dependence

== ENCOUNTER 2018-09-26 15:02 | Inpatient (IN) | payer MEDICARE, MEDICAID ==
[2018-09-26 16:01] VITALS: BMI 37.3
[2018-09-26] MEDS ORDERED: Piperacillin/Tazobact 2.25gm 2.25 GM/100 ML BAG IVPB STA (16:37)
[2018-09-26] MEDS ORDERED: Vancomycin 1gm in NS 250ml 1 GM/250 ML BAG IVPB STA (16:40)
--- NOTE | 2018-09-26 16:41 | ED PDOC ---
Arrival/HPI - General Chief Complaint: Lower Extremity Problem/Injury Historian: Patient - History of Present Illness Narrative History of Present Illness (Text): 09/26/18 16:25 48 y/o male, pmh including htn/hld/osteomylitis/ESRD (T/T/S), last dialysis this past wednesday, nkda, c/o send in by Dr. Baig for admission and amputation of the failure of outpatient osteomylitis of the rt. foot 5th digit toe. Pt. was seen in the ER 08/2018, admitted, MRI of the rt. foot shot 5th digit osteomylitis, discharge home with PICC line antibiotics and seen by Dr. Faria/Isaiah with close follow up, wound has been infected with abscess, last seen by Dr. Baig today and send in for IV antibiotics and pre-op amputation. Pt. has no fever or chills, stated that he doesn't have much pain as he has neuropathy, no chest pain or shortness of breath, no leg or thigh pain, no other medical or psychological complaints. Past Medical History - Provider Review Nursing Documentation Reviewed: Yes - Past History Past History: Non-Contributing - Infectious Disease Hx of Infectious Diseases: None - Tetanus Immunization Tetanus Immunization: Unknown - Cardiac Hx Cardiac Disorders: Yes Hx Congestive Heart Failure: Yes Hx Hypertension: Yes - Pulmonary Hx Respiratory Disorders: No - Neurological Hx Neurological Disorder: No - HEENT Hx HEENT Disorder: No - Renal Hx Renal Disorder: Yes Hx Dialysis: Yes (,,) - Endocrine/Metabolic Hx Endocrine Disorders: Yes Hx Diabetes Mellitus Type 2: Yes - Hematological/Oncological Hx Blood Disorders: No - Integumentary Hx Dermatological Disorder: No - Musculoskeletal/Rheumatological Hx Musculoskeletal Disorders: Yes Hx Osteomyelitis: Yes - Gastrointestinal Hx Gastrointestinal Disorders: No - Genitourinary/Gynecological Hx Genitourinary Disorders: No - Psychiatric Hx Psychophysiologic Disorder: No Hx Substance Use: No - Surgical History Hx Orthopedic Surgery: Yes (R FOOT) Other/Comment: AV SHUNT R ARM - Anesthesia Hx Anesthesia Reactions: No Hx Malignant Hyperthermia: No - Suicidal Assessment Feels Threatened In Home Enviroment: No Family/Social History - Physician Review Nursing Documentation Reviewed: Yes Family/Social History: Unknown Family HX Smoking Status: Former Smoker Hx Alcohol Use: No Hx Substance Use: No Substance used: CANNABIS Hx Substance Use Treatment: No Allergies/Home Meds Allergies/Adverse Reactions: Allergies No Known Allergies Allergy (Verified 09/26/18 16:01) Home Medications: Home Meds Medication Instructions Recorded Confirmed Cinacalcet [Sensipar] 60 mg PO BRKDIN 09/27/18 Losartan [Cozaar] 100 mg PO DAILY 09/27/18 Sevelamer [Renagel] 3,200 mg PO AC 09/27/18 Review of Systems - Review of Systems Constitutional: absent: Fatigue, Fevers ENT: absent: Hearing Changes Respiratory: absent: SOB, Cough Cardiovascular: absent: Chest Pain Gastrointestinal: absent: Abdominal Pain, Diarrhea, Nausea, Vomiting Musculoskeletal: Arthralgias. absent: Back Pain Skin: Skin Lesions, Abscess, Ulcer, Cellulitis. absent: Rash, Pruritis Psychiatric: absent: Anxiety, Depression, Suicidal Ideation Physical Exam Vital Signs Reviewed: Yes Vital Signs Temp Pulse Resp BP Pulse Ox 09/26/18 16:01 98.4 F 85 19 188/102 H 96 Temperature: Afebrile Blood Pressure: Hypertensive Pulse: Regular Respiratory Rate: Normal Appearance: Positive for: Well-Appearing, Non-Toxic, Comfortable Pain Distress: Mild Mental Status: Positive for: Alert and Oriented X 3 - Systems Exam Head: Present: Atraumatic, Normocephalic Pupils: Present: PERRL Extroacular Muscles: Present: EOMI Conjunctiva: Present: Normal Mouth: Present: Moist Mucous Membranes Neck: Present: Normal Range of Motion Respiratory/Chest: Present: Clear to Auscultation, Good Air Exchange. No: Respiratory Distress, Accessory Muscle Use Cardiovascular: Present: Regular Rate and Rhythm, Normal S1, S2. No: Murmurs Abdomen: No: Tenderness, Distention, Peritoneal Signs Back: Present: Normal Inspection Upper Extremity: Present: Normal Inspection. No: Cyanosis, Edema Lower Extremity: Present: Normal Inspection, Other (Rt. foot: wrapped in dressing, visible rt. foot 5th digit lateral ulcerated approx. 1cm diameter draining wound with cellulitis noted, +DPPT pulses, capillary refill< 2 seconds, neurovascular intact. ). No: Edema Neurological: Present: GCS=15, CN II-XII Intact, Speech Normal, Motor Func Grossly Intact, Memory Normal Skin: Present: Warm, Dry, Normal Color. No: Rashes Lymphatic: No: Cervical Adenopathy Psychiatric: Present: Alert, Oriented x 3, Normal Insight, Normal Concentration Medical Decision Making ED Course and Treatment: 09/26/18 16:46 -labs -ekg -xray -IV vancomycin /zosyn (renal dose)/refused pain med -will admit 09/26/18 19:27 -EKG: NSR @ 85 BPM, no ST elevation or depression, no T wave inversion. -Rt. foot xray: ER wet read: chronic dislocation of the 5th digit with soft tissue swelling. -Chest xray: ER wet read: no acute changes, no active disease -Labs show no significant changes except hgb 9.9 from 10.7 (anemia due to CKD), BUN 75/Creatine 13.6 (ESRD), Ca 7.4 from 8.7 -ESR 50 from 85 -CRP ordered and won't be resulted today. -routine consult ordered for Dr. Baig(pt.'s animal maintenance supervisor), Dr. Mtz (pt.'s ID) and Dr. Davis (pt.'s soft boarder) -He will need admission for amputation? and IV antibiotic. 09/26/18 19:42 -I discussed with the medical team residents and Dr. Segura, discussed about the labs/radiology results, agreed to admit and follow up the consults. - RAD Interpretation Radiology Orders: Chest xray: Date of service: 09/26/2018 HISTORY: Preoperative examination COMPARISON: 09/04/2018. TECHNIQUE: Chest PA and lateral FINDINGS: LINES AND TUBES: None. LUNG AND PLEURA: The lungs are well inflated. There is mild pulmonary venous congestion. No pleural effusion or pneumothorax. HEART AND MEDIASTINUM: There is persistent moderate cardiomegaly. No aortic atherosclerotic calcification present. The hilar and mediastinal contours are within normal limits. SKELETAL STRUCTURES: The bony structures are within normal limits for the patient's age. VISUALIZED UPPER ABDOMEN: Normal. OTHER FINDINGS: None. IMPRESSION: No active pulmonary disease. Right foot xray: Date of service: 09/26/2018 PROCEDURE: Right Foot Radiographs. HISTORY: osteomylitis 5th digit COMPARISON: 09/04/2018. FINDINGS: BONES: There is lucency in the distal aspect of the proximal phalanx of the little toe and in the head of the 5th meta tarsal. There is no acute displaced fracture. JOINTS: There is chronic dislocation of the 5th metatarsophalangeal and proximal interphalangeal joints. SOFT TISSUES: There is diffuse soft tissue swelling in the 5th toe. OTHER FINDINGS: None. IMPRESSION: Lucencies in the head of the 5th metatarsal and distal aspect of the proximal phalanx of the 5th toe along with diffuse soft tissue swelling in the 5th toe may represent osteomyelitis in the appropriate clinical setting. If clinically indicated, correlation with MRI may be performed. Consultant Intern: Radiologist - PA / SOCIAL MEDIA EXECUTIVE / Resident Statement / has reviewed & agrees with the documentation as recorded. Disposition/Present on Arrival - Present on Arrival Any Indicators Present on Arrival: No History of DVT/PE: No History of Uncontrolled Diabetes: Yes Urinary Catheter: No History of Decub. Ulcer: No History Surgical Site Infection Following: None - Disposition Have Diagnosis and Disposition been Completed?: Yes Diagnosis: Osteomyelitis, Failure of outpatient treatment, ESRD (end stage renal disease), Anemia, Subluxation of toe, Hypocalcemia Disposition: HOSPITALIZED Disposition Time: 16:47 Patient Plan: Admission, Observation Patient Problems: Current Active Problems Problem Status Onset Osteomyelitis Acute Anemia Acute ESRD (end stage renal disease) Acute Subluxation of toe Acute Failure of outpatient treatment Acute Hypocalcemia Acute Condition: STABLE
--- NOTE | 2018-09-26 18:07 | CARD ---
APPROVED REPORT Date of service: 09/26/2018 EKG Measurement Heart [id number] <Conclusion> Normal sinus rhythm Normal ECG
[2018-09-26 18:20] LABS: BASO # 0.02 K/mm3 (0.0-2.0); BASO % 0.3 % (0.0-3.0); EOS # 0.4 (0.0-0.7); EOS % 5.7 % (1.5-5.0); GRAN # 3.63 (1.4-6.5); HEMOGLOBIN 9.9 g/dL (14.0-18.0); LYMPH # 1.6 (1.2-3.4); LYMPH % 26.2 % (22.0-35.0); MEAN CELL VOLUME 91.3 fl (80.0-105.0); MEAN CORPUSCULAR HEMOGLOBIN 28.8 pg (25.0-35.0); MEAN CORPUSCULAR HGB CONC 31.5 g/dl (31.0-37.0); MEAN PLATELET VOLUME 11.6 fl (7.0-11.0); MONO # 0.5 (0.1-0.6); MONO % 8.8 % (1.0-6.0); RBC 3.44 10^6/uL (3.5-6.1); RED CELL DISTRIBUTION WIDTH 15.1 % (11.5-14.5); WHITE BLOOD COUNT 6.2 10^3/uL (4.5-11.0)
[2018-09-26 18:56] LABS: ALB/GLOB RATIO 1.2 (1.1-1.8); ALBUMIN 4.3 g/dL (3.0-4.8); ALT/SGPT 48 U/L (7-56); AST/SGOT 27 U/L (17-59); BLOOD UREA NITROGEN 75 mg/dL (7-21); CALCIUM 7.4 mg/dL (8.4-10.5); GFR NON-AFRICAN AMERICAN 4
[2018-09-26 19:11] LABS: INR 0.98; PARTIAL THROMBOPLASTIN TIME 32.7 Seconds (25.1-36.5); PROTHROMBIN TIME 11.3 SECONDS (9.4-12.5)
[2018-09-26] MEDS ORDERED: Vancomycin 750mg 750 MG/250 ML BAG IVPB STA ×2 (22:38→22:47)
[2018-09-26] MEDS ORDERED: Dextrose 50% SYRINGE Inj (50 ml) IV PRN (22:44)
--- NOTE | 2018-09-26 22:44 | CP.PCM.HP ---
<Chandan Schulte - Last Filed: 09/27/18 01:21> History of Present Illness - History of Present Illness History of Present Illness: Chandan Schulte, PGY-1, Internal Medicine History and Physical for Dr. Segura 48 year old male with past medical history of hypertension, insulin dependent diabetes mellitus, nephrotic syndrome, NSTEMI, ESRD on dialysis T//, diabetic neuropathy, hyperlipidemia presents with wound of the 5th digit of his right foot that started in August 2018. [place] [facility] [place] at the time confirmed osteomyelitis of the right 5th digit. Would culture showed proteus mirabilis, MRSA, and GBS, and patient was discharged with receiving antibiotics during dialysis. Patient did not remember what antibiotic he had been receiving. Patient finished last dose of antibiotics two days ago. Wound has been unchanged since August. As a result, when patient went to his schedule appointment with Dr. Baig, patient was told to come to [facility] ([facility] for likely amputation of 5th digit on right foot on 09/28. Today, patient reports numbness of the right 5th digit but denies any numbness or tingling sensation of his other digits and sole and heel of the foot. Patient reported a longstanding dry cough but denied any other symptoms including fever, headache, chest pain, shortness of breath, nausea, vomiting, constipation, diarrhea, abdominal pain, does not pee, and denies weakness. 12-point ROS was unremarkable except for what was mentioned above. PMH: as mentioned above PSH: right foot bursa, L2 surgery with pins and rods, right arm fistula FMHx: ESRD, throat cancer, ICH, CAD SHx: 2 PPD cigarettes for 10 years and stopped 5 years ago. denies alcohol history. reports marijuana last 3 months ago Allergies: NKDA PMD: Dr. House Nephrology: Dr. Davis Podiatry: Dr. Baig Present on Admission - Present on Admission Any Indicators Present on Admission: No Review of Systems - Constitutional Constitutional: absent: Anorexia, Chills, Fever, Headache - EENT Eyes: absent: Blurred Vision Ears: absent: Decreased Hearing - Cardiovascular Cardiovascular: absent: Chest Pain, Chest Pain at Rest, Dyspnea, Edema - Respiratory Respiratory: Cough (dry). absent: Dyspnea, Snoring - Gastrointestinal Gastrointestinal: absent: Abdominal Pain, Constipation, Diarrhea, Nausea, Vomiting - Genitourinary Genitourinary: absent: Dysuria, Hematuria - Musculoskeletal Musculoskeletal: Numbness. absent: Arthralgias, Radiating Pain into Limb, Tingling - Neurological Neurological: Numbness (right 5th digit). absent: Confusion, Tingling, Tremor Past Patient History - Infectious Disease Hx of Infectious Diseases: None - Tetanus Immunizations Tetanus Immunization: Unknown - Past Social History Smoking Status: Former Smoker - CARDIAC Hx Cardiac Disorders: Yes Hx Congestive Heart Failure: Yes Hx Hypertension: Yes - PULMONARY Hx Respiratory Disorders: No - NEUROLOGICAL Hx Neurological Disorder: No - HEENT Hx HEENT Problems: No - RENAL Hx Chronic Kidney Disease: Yes Hx Dialysis: Yes (,,) - ENDOCRINE/METABOLIC Hx Endocrine Disorders: Yes Hx Diabetes Mellitus Type 2: Yes - HEMATOLOGICAL/ONCOLOGICAL Hx Blood Disorders: No - INTEGUMENTARY Hx Dermatological Problems: No - MUSCULOSKELETAL/RHEUMATOLOGICAL Hx Musculoskeletal Disorders: Yes Hx Osteomyelitis: Yes - GASTROINTESTINAL Hx Gastrointestinal Disorders: No - GENITOURINARY/GYNECOLOGICAL Hx Genitourinary Disorders: No - PSYCHIATRIC Hx Psychophysiologic Disorder: No Hx Substance Use: No - SURGICAL HISTORY Hx Orthopedic Surgery: Yes (R FOOT) Other/Comment: AV SHUNT R ARM - ANESTHESIA Hx Anesthesia Reactions: No Hx Malignant Hyperthermia: No Meds Allergies/Adverse Reactions: Allergies Allergy/AdvReac Type Severity Reaction Status Date / Time No Known Allergies Allergy Verified 09/26/18 16:01 Physical Exam - Constitutional Appears: Well, Non-toxic, No Acute Distress - Head Exam Head Exam: ATRAUMATIC, NORMAL INSPECTION, NORMOCEPHALIC - Eye Exam Eye Exam: EOMI Pupil Exam: PERRL - ENT Exam ENT Exam: Mucous Membranes Moist - Neck Exam Neck exam: Positive for: Normal Inspection - Respiratory Exam Respiratory Exam: Clear to Auscultation Bilateral, NORMAL BREATHING PATTERN - Cardiovascular Exam Cardiovascular Exam: REGULAR RHYTHM, RRR - GI/Abdominal Exam GI & Abdominal Exam: Normal Bowel Sounds, Soft. absent: Tenderness - Extremities Exam Extremities exam: Positive for: full ROM. Negative for: calf tenderness, pedal edema, tenderness Additional comments: right 5th digit numbness. skin peeling and dry. darkened skin on proximal foot - Neurological Exam Neurological exam: Alert, CN II-XII Intact, Oriented x3 - Skin Skin Exam: Dry, Intact, Normal Color Additional comments: peeling skin on bilateral feet Results - Vital Signs Recent Vital Signs: Last Vital Signs Temp 98.4 F 09/26/18 16:01 Pulse 85 09/26/18 16:01 Resp 19 09/26/18 16:01 BP 188/102 H 09/26/18 16:01 Pulse Ox 96 09/26/18 16:01 - Labs Result Diagrams: 09/26/18 18:00 09/26/18 18:00 Labs: Laboratory Results - last 24 hr 09/26/18 09/26/18 09/26/18 18:00 18:00 18:00 WBC RBC Hgb Hct MCV MCH MCHC RDW Plt Count MPV Gran % Lymph % (Auto) [place] % (Auto) Eos % (Auto) Baso % (Auto) Gran # Lymph # (Auto) [place] # (Auto) Eos # (Auto) Baso # (Auto) ESR PT 11.3 INR 0.98 APTT 32.7 Sodium 140 Potassium 4.9 Chloride 101 Carbon Dioxide 24 Anion Gap 19 BUN 75 H Creatinine 13.6 H* Est GFR ( Amer) 5 Est GFR (Non-Af Amer) 4 Random Glucose 114 H Calcium 7.4 L Total Bilirubin 0.3 AST 27 ALT 48 Alkaline Phosphatase 116 Total Protein 7.7 Albumin 4.3 Globulin 3.4 Albumin/Globulin Ratio 1.2 Procalcitonin 1.61 H Blood Type Antibody Screen BBK History Checked 09/26/18 09/26/18 18:00 18:23 WBC 6.2 RBC 3.44 L Hgb 9.9 L Hct 31.4 L MCV 91.3 MCH 28.8 MCHC 31.5 RDW 15.1 H Plt Count 212 MPV 11.6 H Gran % 59.0 Lymph % (Auto) 26.2 [place] % (Auto) 8.8 H Eos % (Auto) 5.7 H Baso % (Auto) 0.3 Gran # 3.63 Lymph # (Auto) 1.6 [place] # (Auto) 0.5 Eos # (Auto) 0.4 Baso # (Auto) 0.02 ESR 50 H PT INR APTT Sodium Potassium Chloride Carbon Dioxide Anion Gap BUN Creatinine Est GFR ( Amer) Est GFR (Non-Af Amer) Random Glucose Calcium Total Bilirubin AST ALT Alkaline Phosphatase Total Protein Albumin Globulin Albumin/Globulin Ratio Procalcitonin Blood Type A POSITIVE Antibody Screen Negative BBK History Checked Patient has bt Assessment & Plan - Assessment and Plan (Free Text) Assessment: 48 year old male with past medical history of hypertension, insulin dependent diabetes mellitus, nephrotic syndrome, NSTEMI, ESRD on dialysis //, diabetic neuropathy, hyperlipidemia presents with wound of the 5th digit of his right foot that started in August 2018. Plan: Osteomyelitis of right 5th digit -MRI from August 2018: marrow edema in the 5th toe as well as dislocation of the PIP joint. Findings are suspicious for osteomyelitis -Foot X ray results pending -Procalcitonin: 1.61 -Blood culture and wound culture ordered -As per Dr. Baig, patient failed outpatient treatment. She has plan for OR for amputation on 09/28 -As per Dr. Baig, Dr. Mtz and Dr. Davis consulted for recommendations -For preoperative screening, CBC, CMP, ESR, CRP, PT/INR, EKG, CXR, type and screen ordered. -CBC shows anemia of 9.9 compatible with ESRD, unremarkable PT/PTT, and CMP remarkable for BUN/Cr of 75/13.6 and hypocalcemia -ESR elevated at 50 -Vancomycin for osteomyelitis Chronic Kidney Disease Stage V on Dialysis -BUN/Cr: 75/13.6 -GFR: 5 -Anemia of Hgb of 9.9 is compatible with ESRD -Renal diet -Patient for dialysis tomorrow prior to surgery -Replete electrolytes as needed History of Diabetes Mellitus Type II -Glucose: 114 -HgbA1c is 7 from 08/2018 -Medium sliding scale insulin History of hypertension -BP: 188/102 -HCTZ 25 mg daily, Metoprolol 25 mg daily. Avoid JENNY I and ARB due to patient's GFR -Continue to monitor GI prophylaxis: protonix 40 mg daily DVT prophylaxis: SCD Patient plan discussed with Dr. Segura. - Date & Time Date: 09/27/18 Time: 01:22 <Florencio Segura - Last Filed: 09/27/18 01:26> Results - Vital Signs Recent Vital Signs: Last Vital Signs Temp 98.4 F 09/26/18 16:01 Pulse 82 09/27/18 00:25 Resp 19 09/26/18 16:01 BP 180/90 H 09/27/18 00:25 Pulse Ox 96 09/26/18 16:01 - Labs Result Diagrams: 09/26/18 18:00 09/26/18 18:00 Labs: Laboratory Results - last 24 hr 09/26/18 09/26/18 09/26/18 18:00 18:00 18:00 WBC RBC Hgb Hct MCV MCH MCHC RDW Plt Count MPV Gran % Lymph % (Auto) [place] % (Auto) Eos % (Auto) Baso % (Auto) Gran # Lymph # (Auto) [place] # (Auto) Eos # (Auto) Baso # (Auto) ESR PT 11.3 INR 0.98 APTT 32.7 Sodium 140 Potassium 4.9 Chloride 101 Carbon Dioxide 24 Anion Gap 19 BUN 75 H Creatinine 13.6 H* Est GFR ( Amer) 5 Est GFR (Non-Af Amer) 4 Random Glucose 114 H Calcium 7.4 L Total Bilirubin 0.3 AST 27 ALT 48 Alkaline Phosphatase 116 Total Protein 7.7 Albumin 4.3 Globulin 3.4 Albumin/Globulin Ratio 1.2 Procalcitonin 1.61 H Blood Type Antibody Screen BBK History Checked 09/26/18 09/26/18 18:00 18:23 WBC 6.2 RBC 3.44 L Hgb 9.9 L Hct 31.4 L MCV 91.3 MCH 28.8 MCHC 31.5 RDW 15.1 H Plt Count 212 MPV 11.6 H Gran % 59.0 Lymph % (Auto) 26.2 [place] % (Auto) 8.8 H Eos % (Auto) 5.7 H Baso % (Auto) 0.3 Gran # 3.63 Lymph # (Auto) 1.6 [place] # (Auto) 0.5 Eos # (Auto) 0.4 Baso # (Auto) 0.02 ESR 50 H PT INR APTT Sodium Potassium Chloride Carbon Dioxide Anion Gap BUN Creatinine Est GFR ( Amer) Est GFR (Non-Af Amer) Random Glucose Calcium Total Bilirubin AST ALT Alkaline Phosphatase Total Protein Albumin Globulin Albumin/Globulin Ratio Procalcitonin Blood Type A POSITIVE Antibody Screen Negative BBK History Checked Patient has bt Attending/Attestation - Attestation I have personally seen and examined this patient.: Yes I have fully participated in the care of the patient.: Yes I have reviewed all pertinent clinical information: Yes
[2018-09-26] MEDS ORDERED: Piperacillin/Tazobact 3.375 gm 100 ML IVPB STA (22:46)
--- NOTE | 2018-09-27 09:07 | RAD ---
Date of service: 09/26/2018 HISTORY: Preoperative examination COMPARISON: 09/04/2018. TECHNIQUE: Chest PA and lateral FINDINGS: LINES AND TUBES: None. LUNG AND PLEURA: The lungs are well inflated. There is mild pulmonary venous congestion. No pleural effusion or pneumothorax. HEART AND MEDIASTINUM: There is persistent moderate cardiomegaly. No aortic atherosclerotic calcification present. The hilar and mediastinal contours are within normal limits. SKELETAL STRUCTURES: The bony structures are within normal limits for the patient's age. VISUALIZED UPPER ABDOMEN: Normal. OTHER FINDINGS: None. IMPRESSION: No active pulmonary disease.
--- NOTE | 2018-09-27 09:11 | RAD ---
Date of service: 09/26/2018 PROCEDURE: Right Foot Radiographs. HISTORY: osteomylitis 5th digit COMPARISON: 09/04/2018. FINDINGS: BONES: There is lucency in the distal aspect of the proximal phalanx of the little toe and in the head of the 5th meta tarsal. There is no acute displaced fracture. JOINTS: There is chronic dislocation of the 5th metatarsophalangeal and proximal interphalangeal joints. SOFT TISSUES: There is diffuse soft tissue swelling in the 5th toe. OTHER FINDINGS: None. IMPRESSION: Lucencies in the head of the 5th metatarsal and distal aspect of the proximal phalanx of the 5th toe along with diffuse soft tissue swelling in the 5th toe may represent osteomyelitis in the appropriate clinical setting. If clinically indicated, correlation with MRI may be performed.
[2018-09-27 09:13] LABS: BASO # 0.01 K/mm3 (0.0-2.0); BASO % 0.2 % (0.0-3.0); EOS # 0.3 (0.0-0.7); EOS % 4.7 % (1.5-5.0); GRAN # 4.11 (1.4-6.5); GRAN % 67.2 % (50.0-68.0); HEMOGLOBIN 9.5 g/dL (14.0-18.0); LYMPH # 1.3 (1.2-3.4); LYMPH % 21.8 % (22.0-35.0); MEAN CELL VOLUME 90.6 fl (80.0-105.0); MEAN CORPUSCULAR HGB CONC 30.9 g/dl (31.0-37.0); MEAN PLATELET VOLUME 10.8 fl (7.0-11.0); MONO # 0.4 (0.1-0.6); MONO % 6.1 % (1.0-6.0); RBC 3.39 10^6/uL (3.5-6.1); RED CELL DISTRIBUTION WIDTH 14.8 % (11.5-14.5); WHITE BLOOD COUNT 6.1 10^3/uL (4.5-11.0)
[2018-09-27 09:24] LABS: ALB/GLOB RATIO 1.3 (1.1-1.8); ALBUMIN 4.2 g/dL (3.0-4.8); CALCIUM 7.8 mg/dL (8.4-10.5)
[2018-09-27] MEDS ORDERED: Vancomycin 750mg 750 MG/250 ML BAG IVPB SCH (10:00)
[2018-09-27] MEDS ORDERED: Doxercalciferol 4 mcg/2 ml Inj IV ONE (10:32)
--- NOTE | 2018-09-27 11:07 | CP.PCM.CON ---
<Uyen Sheets - Last Filed: 09/27/18 12:20> History of Present Illness - History of Present Illness History of Present Illness: Podiatry consult note for Dr. Colon, 48 year old male with past medical history of hypertension, insulin dependent diabetes mellitus, nephrotic syndrome, NSTEMI, ESRD on dialysis //, diabetic neuropathy, hyperlipidemia presents with wound of the 5th digit of his right foot that started in August 2018. Patient was admitted at [facility] [place] and MRI at the time confirmed osteomyelitis of the right 5th digit. Would culture showed proteus mirabilis, MRSA, and GBS, and patient was discharged with receiving antibiotics during dialysis. Patient states he was advised to come to the hospital by Dr. Baig for right fifth toe amputation on Wednesday. Patient denies f/n/v/sob. PMH: as mentioned above PSH: right foot bursa, L2 surgery with pins and rods, right arm fistula FMHx: ESRD, throat cancer, ICH, CAD SHx: 2 PPD cigarettes for 10 years and stopped 5 years ago. denies alcohol history. reports marijuana last 3 months ago Allergies: NKDA Past Patient History - Infectious Disease Hx of Infectious Diseases: None - Tetanus Immunizations Tetanus Immunization: Unknown - Past Social History Smoking Status: Former Smoker - CARDIAC Hx Cardiac Disorders: Yes Hx Congestive Heart Failure: Yes Hx Hypertension: Yes - PULMONARY Hx Respiratory Disorders: No - NEUROLOGICAL Hx Neurological Disorder: No - HEENT Hx HEENT Problems: No - RENAL Hx Chronic Kidney Disease: Yes Hx Dialysis: Yes (,,) - ENDOCRINE/METABOLIC Hx Endocrine Disorders: Yes Hx Diabetes Mellitus Type 2: Yes - HEMATOLOGICAL/ONCOLOGICAL Hx Blood Disorders: No - INTEGUMENTARY Hx Dermatological Problems: No - MUSCULOSKELETAL/RHEUMATOLOGICAL Hx Falls: No - GASTROINTESTINAL Hx Gastrointestinal Disorders: No - GENITOURINARY/GYNECOLOGICAL Hx Genitourinary Disorders: No - PSYCHIATRIC Hx Substance Use: No (smoke marijuana) - SURGICAL HISTORY Hx Orthopedic Surgery: Yes (R FOOT) Other/Comment: AV SHUNT R ARM - ANESTHESIA Hx Anesthesia Reactions: No Hx Malignant Hyperthermia: No Meds Allergies/Adverse Reactions: Allergies Allergy/AdvReac Type Severity Reaction Status Date / Time No Known Allergies Allergy Verified 09/26/18 16:01 - Medications Medications: Current Medications Calcium Carbonate (Oscal) 500 mg PO BID MAVIS Cinacalcet (Sensipar) 60 mg PO BRKDIN MAVIS Dextrose (Dextrose 50% Inj) 0 ml IV STAT PRN; Protocol PRN Reason: Hypoglycemia Protocol Dextrose (Dextrose 5% In Water 1000 Ml) 1,000 mls @ 0 mls/hr IV .Q0M PRN; Protocol PRN Reason: Hypoglycemia Protocol Vancomycin HCl (Vancomycin 750 Mg In Ns) 750 mg in 250 mls @ 167 mls/hr IVPB TTS MAVIS; Protocol Insulin Human Lispro (Humalog Med) 0 units SC ACHS MAVIS; Protocol Losartan Potassium (Cozaar) 100 mg PO DAILY MAVIS Pantoprazole Sodium (Protonix Inj) 40 mg IVP DAILY MAVIS Sevelamer HCl (Renagel) 3,200 mg PO AC MAVIS Physical Exam - Constitutional Appears: Well, Non-toxic, No Acute Distress - Head Exam Head Exam: ATRAUMATIC, NORMOCEPHALIC - Eye Exam Eye Exam: Normal appearance Pupil Exam: NORMAL ACCOMODATION - ENT Exam ENT Exam: Mucous Membranes Moist - Respiratory Exam Respiratory Exam: NORMAL BREATHING PATTERN - Cardiovascular Exam Cardiovascular Exam: REGULAR RHYTHM - Extremities Exam Additional comments: Right lower extremity exam: Vascular: DP/PT pulses palpable, CFT <3 secs x 5, TG warm to warm, no edema or erythema noted derm: ortho: neuro: Results - Vital Signs Recent Vital Signs: Last Vital Signs Temp 98.5 F 09/27/18 07:00 Pulse 76 09/27/18 07:00 Resp 20 09/27/18 07:00 BP 146/90 09/27/18 07:00 Pulse Ox 97 09/27/18 07:00 - Labs Result Diagrams: 09/27/18 05:00 09/27/18 05:00 Labs: Laboratory Results - last 24 hr 09/26/18 09/26/18 09/26/18 18:00 18:00 18:00 WBC RBC Hgb Hct MCV MCH MCHC RDW Plt Count MPV Gran % Lymph % (Auto) [place] % (Auto) Eos % (Auto) Baso % (Auto) Gran # Lymph # (Auto) [place] # (Auto) Eos # (Auto) Baso # (Auto) ESR PT 11.3 INR 0.98 APTT 32.7 Sodium 140 Potassium 4.9 Chloride 101 Carbon Dioxide 24 Anion Gap 19 BUN 75 H Creatinine 13.6 H* Est GFR ( Amer) 5 Est GFR (Non-Af Amer) 4 POC Glucose (mg/dL) Random Glucose 114 H Calcium 7.4 L Phosphorus Magnesium Total Bilirubin 0.3 AST 27 ALT 48 Alkaline Phosphatase 116 Total Protein 7.7 Albumin 4.3 Globulin 3.4 Albumin/Globulin Ratio 1.2 Procalcitonin 1.61 H Blood Type Antibody Screen BBK History Checked 09/26/18 09/26/18 09/27/18 18:00 18:23 05:00 WBC 6.2 6.1 RBC 3.44 L 3.39 L Hgb 9.9 L 9.5 L Hct 31.4 L 30.7 L MCV 91.3 90.6 MCH 28.8 28.0 MCHC 31.5 30.9 L RDW 15.1 H 14.8 H Plt Count 212 184 MPV 11.6 H 10.8 Gran % 59.0 67.2 Lymph % (Auto) 26.2 21.8 L [place] % (Auto) 8.8 H 6.1 H Eos % (Auto) 5.7 H 4.7 Baso % (Auto) 0.3 0.2 Gran # 3.63 4.11 Lymph # (Auto) 1.6 1.3 [place] # (Auto) 0.5 0.4 Eos # (Auto) 0.4 0.3 Baso # (Auto) 0.02 0.01 ESR 50 H PT INR APTT Sodium Potassium Chloride Carbon Dioxide Anion Gap BUN Creatinine Est GFR ( Amer) Est GFR (Non-Af Amer) POC Glucose (mg/dL) Random Glucose Calcium Phosphorus Magnesium Total Bilirubin AST ALT Alkaline Phosphatase Total Protein Albumin Globulin Albumin/Globulin Ratio Procalcitonin Blood Type A POSITIVE Antibody Screen Negative BBK History Checked Patient has bt 09/27/18 09/27/18 05:00 07:04 WBC RBC Hgb Hct MCV MCH MCHC RDW Plt Count MPV Gran % Lymph % (Auto) [place] % (Auto) Eos % (Auto) Baso % (Auto) Gran # Lymph # (Auto) [place] # (Auto) Eos # (Auto) Baso # (Auto) ESR PT INR APTT Sodium 138 Potassium 4.9 Chloride 104 Carbon Dioxide 21 Anion Gap 18 BUN 72 H Creatinine 13.2 H* Est GFR ( Amer) 5 Est GFR (Non-Af Amer) 4 POC Glucose (mg/dL) 88 Random Glucose 111 H Calcium 7.8 L Phosphorus 5.2 H Magnesium 1.9 Total Bilirubin 0.4 AST 32 ALT 43 Alkaline Phosphatase 122 Total Protein 7.4 Albumin 4.2 Globulin 3.2 Albumin/Globulin Ratio 1.3 Procalcitonin Blood Type Antibody Screen BBK History Checked Assessment & Plan - Assessment and Plan (Free Text) Assessment: 48 yo male seen and evaluated for right sub met 5 ulcer with osteomyelitis Plan: Patient seen and evaluated History and plan discussed in detail with the attending Chart, labs and vitals reviewed X-ray of the right foot reviewed; dislocated right fifth toe at the proximal phalanx MRI of the right foot reviewed; bone marrow edema noted in the right fifth digit Podiatry plan: Amputation of the right fifth digit on 09/28 at 1:00 pm. Please provide medical clearance NPO order placed Podiatry will continue to follow the patient thank you for the consult. <Jair Colon - Last Filed: 09/27/18 14:48> Meds - Medications Medications: Current Medications Calcium Carbonate (Oscal) 500 mg PO BID MAVIS Cinacalcet (Sensipar) 60 mg PO BRKDIN [facility] Last Admin: 09/27/18 14:11 Dose: Not Given Dextrose (Dextrose 50% Inj) 0 ml IV STAT PRN; Protocol PRN Reason: Hypoglycemia Protocol Dextrose (Dextrose 5% In Water 1000 Ml) 1,000 mls @ 0 mls/hr IV .Q0M PRN; Protocol PRN Reason: Hypoglycemia Protocol Vancomycin HCl (Vancomycin 750 Mg In Ns) 750 mg in 250 mls @ 167 mls/hr IVPB TTS MAVIS; Protocol Last Admin: 09/27/18 14:13 Dose: 167 mls/hr Insulin Human Lispro (Humalog Med) 0 units SC ACHS [facility]; Protocol Last Admin: 09/27/18 14:10 Dose: Not Given Losartan Potassium (Cozaar) 100 mg PO DAILY MAVIS Last Admin: 09/27/18 14:16 Dose: 100 mg Pantoprazole Sodium (Protonix Ec Tab) 40 mg PO ACB MAVIS Sevelamer HCl (Renagel) 3,200 mg PO AC MAVIS Last Admin: 09/27/18 14:11 Dose: Not Given Results - Vital Signs Recent Vital Signs: Last Vital Signs Temp 97.2 F L 09/27/18 14:08 Pulse 78 09/27/18 14:08 Resp 18 09/27/18 14:08 BP 157/103 H 09/27/18 14:08 Pulse Ox 100 09/27/18 14:08 - Labs Result Diagrams: 09/27/18 05:00 09/27/18 05:00 Labs: Laboratory Results - last 24 hr 09/26/18 09/26/18 09/26/18 18:00 18:00 18:00 WBC RBC Hgb Hct MCV MCH MCHC RDW Plt Count MPV Gran % Lymph % (Auto) [place] % (Auto) Eos % (Auto) Baso % (Auto) Gran # Lymph # (Auto) [place] # (Auto) Eos # (Auto) Baso # (Auto) ESR PT 11.3 INR 0.98 APTT 32.7 Sodium 140 Potassium 4.9 Chloride 101 Carbon Dioxide 24 Anion Gap 19 BUN 75 H Creatinine 13.6 H* Est GFR ( Amer) 5 Est GFR (Non-Af Amer) 4 POC Glucose (mg/dL) Random Glucose 114 H Calcium 7.4 L Phosphorus Magnesium Total Bilirubin 0.3 AST 27 ALT 48 Alkaline Phosphatase 116 C-Reactive Protein < 5.00 Total Protein 7.7 Albumin 4.3 Globulin 3.4 Albumin/Globulin Ratio 1.2 Procalcitonin 1.61 H Blood Type Antibody Screen BBK History Checked 09/26/18 09/26/18 09/27/18 18:00 18:23 05:00 WBC 6.2 6.1 RBC 3.44 L 3.39 L Hgb 9.9 L 9.5 L Hct 31.4 L 30.7 L MCV 91.3 90.6 MCH 28.8 28.0 MCHC 31.5 30.9 L RDW 15.1 H 14.8 H Plt Count 212 184 MPV 11.6 H 10.8 Gran % 59.0 67.2 Lymph % (Auto) 26.2 21.8 L [place] % (Auto) 8.8 H 6.1 H Eos % (Auto) 5.7 H 4.7 Baso % (Auto) 0.3 0.2 Gran # 3.63 4.11 Lymph # (Auto) 1.6 1.3 [place] # (Auto) 0.5 0.4 Eos # (Auto) 0.4 0.3 Baso # (Auto) 0.02 0.01 ESR 50 H PT INR APTT Sodium Potassium Chloride Carbon Dioxide Anion Gap BUN Creatinine Est GFR ( Amer) Est GFR (Non-Af Amer) POC Glucose (mg/dL) Random Glucose Calcium Phosphorus Magnesium Total Bilirubin AST ALT Alkaline Phosphatase C-Reactive Protein Total Protein Albumin Globulin Albumin/Globulin Ratio Procalcitonin Blood Type A POSITIVE Antibody Screen Negative BBK History Checked Patient has bt 09/27/18 09/27/18 05:00 07:04 WBC RBC Hgb Hct MCV MCH MCHC RDW Plt Count MPV Gran % Lymph % (Auto) [place] % (Auto) Eos % (Auto) Baso % (Auto) Gran # Lymph # (Auto) [place] # (Auto) Eos # (Auto) Baso # (Auto) ESR PT INR APTT Sodium 138 Potassium 4.9 Chloride 104 Carbon Dioxide 21 Anion Gap 18 BUN 72 H Creatinine 13.2 H* Est GFR ( Amer) 5 Est GFR (Non-Af Amer) 4 POC Glucose (mg/dL) 88 Random Glucose 111 H Calcium 7.8 L Phosphorus 5.2 H Magnesium 1.9 Total Bilirubin 0.4 AST 32 ALT 43 Alkaline Phosphatase 122 C-Reactive Protein Total Protein 7.4 Albumin 4.2 Globulin 3.2 Albumin/Globulin Ratio 1.3 Procalcitonin Blood Type Antibody Screen BBK History Checked Attending/Attestation - Attestation I have personally seen and examined this patient.: Yes I have fully participated in the care of the patient.: Yes I have reviewed all pertinent clinical information: Yes
--- NOTE | 2018-09-27 11:07 | CP.PCM.CON ---
<Juan C Hale - Last Filed: 09/27/18 11:07> History of Present Illness - History of Present Illness History of Present Illness: Consult Note for Dr Davis: 48 year old male with past medical history of ESRD on dialysis (//) - hypertension, insulin dependent diabetes mellitus, nephrotic syndrome, NSTEMI, diabetic neuropathy, hyperlipidemia presents with wound of the 5th digit of his right foot. Patient was just [place] [facility] [place] and MRI at the time showed osteomyelitis of the right 5th digit. Patient had would culture showed proteus mirabilis, MRSA, and GBS, and patient was discharged with Vanc during dialysis. Patient has followed with Dr Baig which toldhim to come to [facility] for possible amputation. Patient denies any pain, but does complain of mild drainage from the wound. Denies any fever, chills, headache, chest pain, shortness of breath, n/v, constipation, diarrhea, abdominal pain. PMH: as above PSH: right foot bursa, L2 surgery with pins and rods, right arm fistula FMHx: ESRD, throat cancer, CAD SHx: 2 PPD cigarettes for 10 years and stopped 5 years ago. denies alcohol history. prior use marijuana last 3 months ago Allergies: NKDA Review of Systems - Review of Systems All systems: reviewed and no additional remarkable complaints except Past Patient History - Infectious Disease Hx of Infectious Diseases: None - Tetanus Immunizations Tetanus Immunization: Unknown - Past Social History Smoking Status: Former Smoker - CARDIAC Hx Cardiac Disorders: Yes Hx Congestive Heart Failure: Yes Hx Hypertension: Yes - PULMONARY Hx Respiratory Disorders: No - NEUROLOGICAL Hx Neurological Disorder: No - HEENT Hx HEENT Problems: No - RENAL Hx Chronic Kidney Disease: Yes Hx Dialysis: Yes (,,) - ENDOCRINE/METABOLIC Hx Endocrine Disorders: Yes Hx Diabetes Mellitus Type 2: Yes - HEMATOLOGICAL/ONCOLOGICAL Hx Blood Disorders: No - INTEGUMENTARY Hx Dermatological Problems: No - MUSCULOSKELETAL/RHEUMATOLOGICAL Hx Falls: No - GASTROINTESTINAL Hx Gastrointestinal Disorders: No - GENITOURINARY/GYNECOLOGICAL Hx Genitourinary Disorders: No - PSYCHIATRIC Hx Substance Use: No (smoke marijuana) - SURGICAL HISTORY Hx Orthopedic Surgery: Yes (R FOOT) Other/Comment: AV SHUNT R ARM - ANESTHESIA Hx Anesthesia Reactions: No Hx Malignant Hyperthermia: No Meds Allergies/Adverse Reactions: Allergies Allergy/AdvReac Type Severity Reaction Status Date / Time No Known Allergies Allergy Verified 09/26/18 16:01 - Medications Medications: Current Medications Calcium Carbonate (Oscal) 500 mg PO BID [facility] Cinacalcet (Sensipar) 60 mg PO BRKDIN [facility] Dextrose (Dextrose 50% Inj) 0 ml IV STAT PRN; Protocol PRN Reason: Hypoglycemia Protocol Dextrose (Dextrose 5% In Water 1000 Ml) 1,000 mls @ 0 mls/hr IV .Q0M PRN; Protocol PRN Reason: Hypoglycemia Protocol Vancomycin HCl (Vancomycin 750 Mg In Ns) 750 mg in 250 mls @ 167 mls/hr IVPB TTS [facility]; Protocol Insulin Human Lispro (Humalog Med) 0 units SC ACHS [facility]; Protocol Losartan Potassium (Cozaar) 100 mg PO DAILY [facility] Pantoprazole Sodium (Protonix Inj) 40 mg IVP DAILY [facility] Sevelamer HCl (Renagel) 3,200 mg PO AC [facility] Physical Exam - Constitutional Appears: No Acute Distress - Head Exam Head Exam: ATRAUMATIC, NORMOCEPHALIC - Eye Exam Eye Exam: EOMI, PERRL Pupil Exam: NORMAL ACCOMODATION - ENT Exam ENT Exam: Mucous Membranes Moist - Respiratory Exam Respiratory Exam: Clear to Auscultation Bilateral. absent: Rales, Rhonchi, Wheezes - Cardiovascular Exam Cardiovascular Exam: REGULAR RHYTHM, +S1, +S2 - GI/Abdominal Exam GI & Abdominal Exam: Normal Bowel Sounds, Soft - Extremities Exam Extremities exam: Positive for: normal capillary refill. Negative for: calf tenderness, pedal edema Additional comments: RLE bandage placed by podiatry Results - Vital Signs Recent Vital Signs: Last Vital Signs Temp 98.5 F 09/27/18 07:00 Pulse 76 09/27/18 07:00 Resp 20 09/27/18 07:00 BP 146/90 09/27/18 07:00 Pulse Ox 97 09/27/18 07:00 - Labs Result Diagrams: 09/27/18 05:00 09/27/18 05:00 Labs: Laboratory Results - last 24 hr 09/26/18 09/26/18 09/26/18 18:00 18:00 18:00 WBC RBC Hgb Hct MCV MCH MCHC RDW Plt Count MPV Gran % Lymph % (Auto) Bates % (Auto) Eos % (Auto) Baso % (Auto) Gran # Lymph # (Auto) Bates # (Auto) Eos # (Auto) Baso # (Auto) ESR PT 11.3 INR 0.98 APTT 32.7 Sodium 140 Potassium 4.9 Chloride 101 Carbon Dioxide 24 Anion Gap 19 BUN 75 H Creatinine 13.6 H* Est GFR ( Amer) 5 Est GFR (Non-Af Amer) 4 POC Glucose (mg/dL) Random Glucose 114 H Calcium 7.4 L Phosphorus Magnesium Total Bilirubin 0.3 AST 27 ALT 48 Alkaline Phosphatase 116 Total Protein 7.7 Albumin 4.3 Globulin 3.4 Albumin/Globulin Ratio 1.2 Procalcitonin 1.61 H Blood Type Antibody Screen BBK History Checked 09/26/18 09/26/18 09/27/18 18:00 18:23 05:00 WBC 6.2 6.1 RBC 3.44 L 3.39 L Hgb 9.9 L 9.5 L Hct 31.4 L 30.7 L MCV 91.3 90.6 MCH 28.8 28.0 MCHC 31.5 30.9 L RDW 15.1 H 14.8 H Plt Count 212 184 MPV 11.6 H 10.8 Gran % 59.0 67.2 Lymph % (Auto) 26.2 21.8 L Bates % (Auto) 8.8 H 6.1 H Eos % (Auto) 5.7 H 4.7 Baso % (Auto) 0.3 0.2 Gran # 3.63 4.11 Lymph # (Auto) 1.6 1.3 Bates # (Auto) 0.5 0.4 Eos # (Auto) 0.4 0.3 Baso # (Auto) 0.02 0.01 ESR 50 H PT INR APTT Sodium Potassium Chloride Carbon Dioxide Anion Gap BUN Creatinine Est GFR ( Amer) Est GFR (Non-Af Amer) POC Glucose (mg/dL) Random Glucose Calcium Phosphorus Magnesium Total Bilirubin AST ALT Alkaline Phosphatase Total Protein Albumin Globulin Albumin/Globulin Ratio Procalcitonin Blood Type A POSITIVE Antibody Screen Negative BBK History Checked Patient has bt 09/27/18 09/27/18 05:00 07:04 WBC RBC Hgb Hct MCV MCH MCHC RDW Plt Count MPV Gran % Lymph % (Auto) Bates % (Auto) Eos % (Auto) Baso % (Auto) Gran # Lymph # (Auto) Bates # (Auto) Eos # (Auto) Baso # (Auto) ESR PT INR APTT Sodium 138 Potassium 4.9 Chloride 104 Carbon Dioxide 21 Anion Gap 18 BUN 72 H Creatinine 13.2 H* Est GFR ( Amer) 5 Est GFR (Non-Af Amer) 4 POC Glucose (mg/dL) 88 Random Glucose 111 H Calcium 7.8 L Phosphorus 5.2 H Magnesium 1.9 Total Bilirubin 0.4 AST 32 ALT 43 Alkaline Phosphatase 122 Total Protein 7.4 Albumin 4.2 Globulin 3.2 Albumin/Globulin Ratio 1.3 Procalcitonin Blood Type Antibody Screen BBK History Checked Assessment & Plan - Assessment and Plan (Free Text) Assessment: 48 year old male with past medical history of ESRD on dialysis () - hypertension, insulin dependent diabetes mellitus, nephrotic syndrome, NSTEMI, diabetic neuropathy, hyperlipidemia presents with wound of the R lower 5th digit osteo. Micro showing Staph coag neg, MRSA, proteus mirabilis, and GBS. - Started on calcium carbonate 500mg BID - Cont Vanc as per ID with dialysis - Cont Sensipar and Renegal - Cont to monitor for electrolyte abnormalities - F/u podiatry recs - possible OR 09/28 Case and plan was reviewed and discussed with Dr Davis. <Jay Davis - Last Filed: 09/28/18 08:35> Meds - Medications Medications: Current Medications Calcium Carbonate (Oscal) 500 mg PO BID [facility] Last Admin: 09/27/18 18:25 Dose: 500 mg Cinacalcet (Sensipar) 60 mg PO BRKDIN [facility] Last Admin: 09/27/18 18:25 Dose: 60 mg Dextrose (Dextrose 50% Inj) 0 ml IV STAT PRN; Protocol PRN Reason: Hypoglycemia Protocol Dextrose (Dextrose 5% In Water 1000 Ml) 1,000 mls @ 0 mls/hr IV .Q0M PRN; Protocol PRN Reason: Hypoglycemia Protocol Vancomycin HCl (Vancomycin 750 Mg In Ns) 750 mg in 250 mls @ 167 mls/hr IVPB TTS [facility]; Protocol Last Admin: 09/27/18 14:13 Dose: 167 mls/hr Insulin Human Lispro (Humalog Med) 0 units SC ACHS [facility]; Protocol Last Admin: 09/27/18 22:22 Dose: Not Given Losartan Potassium (Cozaar) 100 mg PO DAILY [facility] Last Admin: 09/27/18 14:16 Dose: 100 mg Pantoprazole Sodium (Protonix Ec Tab) 40 mg PO ACB [facility] Sevelamer HCl (Renagel) 3,200 mg PO AC [facility] Last Admin: 09/27/18 18:25 Dose: 3,200 mg Results - Vital Signs Recent Vital Signs: Last Vital Signs Temp 98.4 F 09/27/18 23:23 Pulse 78 09/27/18 23:23 Resp 18 09/27/18 23:23 BP 162/97 H 09/27/18 23:23 Pulse Ox 97 09/27/18 23:23 - Labs Result Diagrams: 09/27/18 05:00 09/27/18 05:00 Labs: Laboratory Results - last 24 hr 09/26/18 09/27/18 09/27/18 18:00 05:00 05:00 WBC 6.1 RBC 3.39 L Hgb 9.5 L Hct 30.7 L MCV 90.6 MCH 28.0 MCHC 30.9 L RDW 14.8 H Plt Count 184 MPV 10.8 Gran % 67.2 Lymph % (Auto) 21.8 L Bates % (Auto) 6.1 H Eos % (Auto) 4.7 Baso % (Auto) 0.2 Gran # 4.11 Lymph # (Auto) 1.3 Bates # (Auto) 0.4 Eos # (Auto) 0.3 Baso # (Auto) 0.01 Sodium 138 Potassium 4.9 Chloride 104 Carbon Dioxide 21 Anion Gap 18 BUN 72 H Creatinine 13.2 H* Est GFR ( Amer) 5 Est GFR (Non-Af Amer) 4 POC Glucose (mg/dL) Random Glucose 111 H Calcium 7.8 L Phosphorus 5.2 H Magnesium 1.9 Total Bilirubin 0.4 AST 32 ALT 43 Alkaline Phosphatase 122 C-Reactive Protein < 5.00 Total Protein 7.4 Albumin 4.2 Globulin 3.2 Albumin/Globulin Ratio 1.3 09/27/18 09/27/18 09/28/18 16:39 20:51 06:35 WBC RBC Hgb Hct MCV MCH MCHC RDW Plt Count MPV Gran % Lymph % (Auto) Bates % (Auto) Eos % (Auto) Baso % (Auto) Gran # Lymph # (Auto) Bates # (Auto) Eos # (Auto) Baso # (Auto) Sodium Potassium Chloride Carbon Dioxide Anion Gap BUN Creatinine Est GFR ( Amer) Est GFR (Non-Af Amer) POC Glucose (mg/dL) 127 H 122 H 91 Random Glucose Calcium Phosphorus Magnesium Total Bilirubin AST ALT Alkaline Phosphatase C-Reactive Protein Total Protein Albumin Globulin Albumin/Globulin Ratio Attending/Attestation - Attestation I have personally seen and examined this patient.: Yes I have fully participated in the care of the patient.: Yes I have reviewed all pertinent clinical information: Yes Notes (Text): Patient seen and examined; I agree with the resident's note as above with the following additions/edits: 48 yo M w/ pmh of htn, dm, morbid obesity, and ESRD on HD (TTS, at [facility], under our care), sent by podiatry to ED due to non-healing 5th toe ulcer in the setting on known OM affecting the said digit, with plans for amputation, nephrology being consulted for ESRD care; Patient seen on HD this morning; has been relatively asymptomatic; has diabetic neuropathy with no sensation at wound site; denies any fever/chills; appetite has been well; does report diarrhea that started last night, water, too many episodes to count; denies nausea/vomiting; Patient doesn't make much urine; denies any shortness of breath; has history of having very large weight gains between HD sessions; Patient has been on vanco with HD since admission for OM last month; vanco trough drawn before HD last was 17; HTN of ESRD with BP relatively well controlled on losartan 100 mg daily, will continue same; 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 hyperphosphatemia; hypocalcemia due to being on sensipar 60 mg bid, will continue same and supplement PO calcium for now; giving hectorol 5 mcg on HD today; will continue sevelamer 4 tabs w/ meals; should avoid giving IV calcium supplementation to CKD/ESRD patient unless patient is symptomatic or having ECG changes (due to concern for calcium complexing with phos and precipitating in soft tisssues/vasculature); Anemia of CKD, getting DAVID per outpatient protocol; hgb slightly below goal, likely EPO resistance in the setting of ongoing infection; Dialyzing today per routine but with decreased UF goal (3.5L net) with patient r eporting diarrhea; otherwise stable electrolyte and volume status; will continue to monitor closely; Continue to re-dose vanco after HD;
[2018-09-27] MEDS: Insulin Lispro (humaLOG) MEDIUM Coverage SC SCH ×3 (14:10→22:22)
--- NOTE | 2018-09-27 16:38 | CON ---
DATE: 09/27/2018 The patient is seen in room 578, bed 2. CHIEF COMPLAINT: Fifth toe infection times several weeks. HISTORY OF PRESENT ILLNESS: This is a 48-year-old male with obesity, BMI of 37, nephrotic syndrome, diabetes mellitus, hypertension, coronary artery disease, non-ST elevation myocardial infarction, hyperlipidemia, end-stage renal disease on hemodialysis, and hypertension and diabetes, who is admitted now with a fifth toe osteomyelitis. The patient is scheduled for OR for amputation. No fevers. No chills. REVIEW OF SYSTEMS: Revealed no chest pain, shortness of breath or cough. No hemoptysis. review of systems was performed. PAST MEDICAL HISTORY: Significant for end-stage renal disease on hemodialysis, hypertension, diabetes, nephrotic syndrome, obesity, coronary artery disease, non-ST elevation DE, hyperlipidemia. PAST SURGICAL HISTORY: Significant for AV shunt in the right arm and right foot surgery. ALLERGIES: NO KNOWN ALLERGIES. MEDICATIONS: Medications at home reveals the patient is on losartan. PHYSICAL EXAMINATION: GENERAL: The patient is in bed, in no acute distress. VITAL SIGNS: Temperature of 98, blood pressure of 150/100, respiratory rate of 18, heart rate of 82. HEENT: Examination of HEENT is unremarkable. NECK: Supple. LUNGS: Have decreased breath sounds. HEART: Normal S1, S2. ABDOMEN: Soft, nontender. EXTREMITIES: Examination of foot reveals the fifth toe, there is an ulcer there in between the toe, and no evidence of an acute infection. LABORATORY DATA: Laboratory examination reveals a white count of 6.1, hemoglobin of 9, platelets of 184. Coagulation is noted. Chemistries reviewed. The patient's x-ray is reviewed. ASSESSMENT AND PLAN: This is a 48-year-old male with obesity, body mass index of 37, nephrotic syndrome, hypertension, diabetes, coronary artery disease, non-ST elevation myocardial infarction, hyperlipidemia, end-stage renal disease on hemodialysis. For the fifth toe osteomyelitis, the patient is scheduled for OR tomorrow, as there is no systemic involvement at this time, the patient is not infected systemically, would not treat with any antibiotics at this point, the patient was started OR standard dosing of antibiotics for surgery, as per surgery, and we will check on the pathology and OR cultures, and we will make further recommendations. The patient has had an HIV test in last two years, which was negative, and we will follow with you. Junior Mtz MD
[2018-09-28] MEDS: Insulin Lispro (humaLOG) MEDIUM Coverage SC SCH ×4 (08:29→22:40)
[2018-09-28] MEDS: Pantoprazole 40 mg EC Tab PO SCH (08:46)
[2018-09-28] MEDS ORDERED: Vancomycin 1gm in NS 250ml 1 GM/250 ML BAG IVPB SCH (10:00)
--- NOTE | 2018-09-28 10:05 | CP.PCM.PN ---
Subjective - Date & Time of Evaluation Date of Evaluation: 09/28/18 Time of Evaluation: 07:00 - Subjective Subjective: Nephrology progress note: Pt seen and examined at bedside. NO acute events overnight. Patient is currently NPO for 5th LE amputation today. Denies any pain at this time. 12 Point ROS performed and neg other than stated above. Objective - Vital Signs/Intake and Output Vital Signs (last 24 hours): Temp Pulse Resp BP Pulse Ox 97.6 F 76 20 150/102 H 95 09/28/18 06:00 09/28/18 06:00 09/28/18 06:00 09/28/18 06:00 09/28/18 06:00 Intake and Output: 09/28/18 09/28/18 06:59 18:59 Intake Total 360 Balance 360 - Medications Medications: Current Medications Calcium Carbonate (Oscal) 500 mg PO BID [facility] Last Admin: 09/27/18 18:25 Dose: 500 mg Cinacalcet (Sensipar) 60 mg PO BRKDIN [facility] Last Admin: 09/28/18 08:46 Dose: 60 mg Dextrose (Dextrose 50% Inj) 0 ml IV STAT PRN; Protocol PRN Reason: Hypoglycemia Protocol Dextrose (Dextrose 5% In Water 1000 Ml) 1,000 mls @ 0 mls/hr IV .Q0M PRN; Protocol PRN Reason: Hypoglycemia Protocol Vancomycin HCl (Vancomycin 750 Mg In Ns) 750 mg in 250 mls @ 167 mls/hr IVPB TTS [facility]; Protocol Last Admin: 09/27/18 14:13 Dose: 167 mls/hr Insulin Human Lispro (Humalog Med) 0 units SC ACHS [facility]; Protocol Last Admin: 09/28/18 08:29 Dose: Not Given Losartan Potassium (Cozaar) 100 mg PO DAILY [facility] Last Admin: 09/27/18 14:16 Dose: 100 mg Pantoprazole Sodium (Protonix Ec Tab) 40 mg PO ACB [facility] Last Admin: 09/28/18 08:46 Dose: 40 mg Sevelamer HCl (Renagel) 3,200 mg PO AC [facility] Last Admin: 09/28/18 08:46 Dose: 3,200 mg - Labs Labs: 09/27/18 05:00 09/27/18 05:00 PT 11.3 SECONDS (9.4-12.5) 09/26/18 18:00 INR 0.98 09/26/18 18:00 APTT 32.7 Seconds (25.1-36.5) 09/26/18 18:00 - Constitutional Appears: No Acute Distress - Head Exam Head Exam: ATRAUMATIC, NORMOCEPHALIC - Eye Exam Eye Exam: EOMI, PERRL - ENT Exam ENT Exam: Mucous Membranes Moist - Respiratory Exam Respiratory Exam: Clear to Ausculation Bilateral - Cardiovascular Exam Cardiovascular Exam: REGULAR RHYTHM, +S1, +S2 - GI/Abdominal Exam GI & Abdominal Exam: Soft, Normal Bowel Sounds - Extremities Exam Additional comments: RLE bandage/splint placed by podiatry - Neurological Exam Neurological Exam: Alert, Awake, Oriented x3 Assessment and Plan - Assessment and Plan (Free Text) Assessment: 48 year old male with past medical history of ESRD on dialysis () - hypertension, insulin dependent diabetes mellitus, nephrotic syndrome, NSTEMI, diabetic neuropathy, hyperlipidemia presents with wound of the R lower 5th digit osteo. For possible amputation today. - NPO - Dialysis yesterday - Next dialysis tomorrow - () - HTN - systolic blood pressure in the 160's - started Hydralazine 25mg BID - Cont Sensipar, Renegal and calcium carbonate 500mg BID -avoid giving IV grady cium supplementation to CKD/ESRD patient unless patient is symptomatic or having ECG changes - Hectorol 5 mcg during HD yesterday - Cont Vanc as per ID with dialysis - follow up vanc trough level - Cont to monitor for electrolyte abnormalities - F/u podiatry recs - possible OR today - cont Losartan - BP relatively well controlled - Anemia- getting DAVID per outpatient protocol - likely EPO resistance in the setting of ongoing infection Case and plan was reviewed and discussed with Dr Davis.
--- NOTE | 2018-09-28 11:08 | CP.PCM.PN ---
Subjective - Date & Time of Evaluation Date of Evaluation: 09/28/18 Time of Evaluation: 07:30 - Subjective Subjective: Patient seen and examined at bedside. Patient states he is in no distress. Denies chest pain, shortness of breath, fever, chills. Objective - Vital Signs/Intake and Output Vital Signs (last 24 hours): Temp Pulse Resp BP Pulse Ox 97.6 F 76 20 150/102 H 95 09/28/18 06:00 09/28/18 06:00 09/28/18 06:00 09/28/18 06:00 09/28/18 06:00 Intake and Output: 09/28/18 09/28/18 06:59 18:59 Intake Total 360 Balance 360 - Medications Medications: Current Medications Calcium Carbonate (Oscal) 500 mg PO BID [facility] Last Admin: 09/28/18 10:28 Dose: 500 mg Cinacalcet (Sensipar) 60 mg PO BRKDIN [facility] Last Admin: 09/28/18 08:46 Dose: 60 mg Dextrose (Dextrose 50% Inj) 0 ml IV STAT PRN; Protocol PRN Reason: Hypoglycemia Protocol Dextrose (Dextrose 5% In Water 1000 Ml) 1,000 mls @ 0 mls/hr IV .Q0M PRN; Protocol PRN Reason: Hypoglycemia Protocol Vancomycin HCl (Vancomycin 750 Mg In Ns) 750 mg in 250 mls @ 167 mls/hr IVPB TTS [facility]; Protocol Last Admin: 09/27/18 14:13 Dose: 167 mls/hr Insulin Human Lispro (Humalog Med) 0 units SC ACHS [facility]; Protocol Last Admin: 09/28/18 08:29 Dose: Not Given Losartan Potassium (Cozaar) 100 mg PO DAILY [facility] Last Admin: 09/28/18 10:28 Dose: 100 mg Pantoprazole Sodium (Protonix Ec Tab) 40 mg PO ACB [facility] Last Admin: 09/28/18 08:46 Dose: 40 mg Sevelamer HCl (Renagel) 3,200 mg PO AC [facility] Last Admin: 09/28/18 08:46 Dose: 3,200 mg - Labs Labs: 09/27/18 05:00 09/27/18 05:00 PT 11.3 SECONDS (9.4-12.5) 09/26/18 18:00 INR 0.98 09/26/18 18:00 APTT 32.7 Seconds (25.1-36.5) 09/26/18 18:00 - Constitutional Appears: Non-toxic, No Acute Distress - Respiratory Exam Respiratory Exam: Clear to Ausculation Bilateral, NORMAL BREATHING PATTERN. absent: Rales, Rhonchi, Wheezes - Cardiovascular Exam Cardiovascular Exam: RRR, +S1, +S2 - GI/Abdominal Exam GI & Abdominal Exam: Soft, Normal Bowel Sounds. absent: Tenderness - Extremities Exam Extremities Exam: absent: Pedal Edema Additional comments: Right 5th digit ulceration, bandaged. No drainage. - Neurological Exam Neurological Exam: Alert, Awake, CN II-XII Intact, Oriented x3 - Psychiatric Exam Psychiatric exam: Normal Affect, Normal Mood - Skin Skin Exam: Intact, Normal Color, Warm Assessment and Plan - Assessment and Plan (Free Text) Plan: Osteomyelitis of the right 5th toe Hx of Nephrotic syndrome Hx of ESRD on hemodialysis Hx of NSTEMI Hx of DM2 Hx of HTN HX of HLD Plan Scheduled for toe amputation today as per Podiatry No systemic involvement No antibiotics needed at this time Will follow up pathology results Blood cultures negative x 24 hours Gal, PGY-3
--- NOTE | 2018-09-28 12:12 | CP.PCM.PCO ---
Physician Communication Note - Physician Communication Note Physician Communication Note: Please call an inhouse [facility] for a stat consult
--- NOTE | 2018-09-28 12:25 | CP.PCM.PN ---
<Leroy Meyer - Last Filed: 09/28/18 12:45> Subjective - Date & Time of Evaluation Date of Evaluation: 09/28/18 Time of Evaluation: 07:00 - Subjective Subjective: Pt seen and examined this morning. Denies any new complaints at this time. Objective - Vital Signs/Intake and Output Vital Signs (last 24 hours): Temp Pulse Resp BP Pulse Ox 97.6 F 76 20 150/102 H 95 09/28/18 06:00 09/28/18 06:00 09/28/18 06:00 09/28/18 06:00 09/28/18 06:00 Intake and Output: 09/28/18 09/28/18 06:59 18:59 Intake Total 360 Balance 360 - Medications Medications: Current Medications Calcium Carbonate (Oscal) 500 mg PO BID [facility] Last Admin: 09/28/18 10:28 Dose: 500 mg Cinacalcet (Sensipar) 60 mg PO BRKDIN [facility] Last Admin: 09/28/18 08:46 Dose: 60 mg Dextrose (Dextrose 50% Inj) 0 ml IV STAT PRN; Protocol PRN Reason: Hypoglycemia Protocol Hydralazine HCl (Apresoline) 25 mg PO BID [facility] Dextrose (Dextrose 5% In Water 1000 Ml) 1,000 mls @ 0 mls/hr IV .Q0M PRN; Protocol PRN Reason: Hypoglycemia Protocol Insulin Human Lispro (Humalog Med) 0 units SC ACHS [facility]; Protocol Last Admin: 09/28/18 11:48 Dose: Not Given Losartan Potassium (Cozaar) 100 mg PO DAILY [facility] Last Admin: 09/28/18 10:28 Dose: 100 mg Pantoprazole Sodium (Protonix Ec Tab) 40 mg PO ACB [facility] Last Admin: 09/28/18 08:46 Dose: 40 mg Sevelamer HCl (Renagel) 3,200 mg PO AC [facility] Last Admin: 09/28/18 08:46 Dose: 3,200 mg - Labs Labs: 09/27/18 05:00 09/27/18 05:00 PT 11.3 SECONDS (9.4-12.5) 09/26/18 18:00 INR 0.98 09/26/18 18:00 APTT 32.7 Seconds (25.1-36.5) 09/26/18 18:00 - Head Exam Head Exam: ATRAUMATIC, NORMOCEPHALIC - Eye Exam Eye Exam: EOMI - ENT Exam ENT Exam: Mucous Membranes Moist - Neck Exam Neck Exam: Full ROM - Respiratory Exam Respiratory Exam: Clear to Ausculation Bilateral, NORMAL BREATHING PATTERN. absent: Accessory Muscle Use, Respiratory Distress - Cardiovascular Exam Cardiovascular Exam: RRR, +S1, +S2. absent: Diastolic murmur, Murmur - GI/Abdominal Exam GI & Abdominal Exam: Soft, Normal Bowel Sounds - Extremities Exam Extremities Exam: Full ROM. absent: Pedal Edema - Neurological Exam Neurological Exam: Alert, Awake, Oriented x3 - Psychiatric Exam Psychiatric exam: Normal Affect, Normal Mood - Skin Skin Exam: Dry, Intact, Warm Assessment and Plan - Assessment and Plan (Free Text) Assessment: Pt is a 48yo male with a PMH of HTN, IDDM, nephrotic syndrome, NSTEMI, ESRD on dialysis Tue/Thurs/Sat, diabetic neuropathy, HLD, with a wound on his 5th digit of his right foot. Plan: Osteomyelitis of right 5th digit - Blood culture NGTD - wound cultureNGTD - MRI from August 2018: marrow edema in the 5th toe as well as dislocation of the PIP joint. Findings are suspicious for osteomyelitis - As per Dr. Baig, patient failed outpatient treatment. - Dr Wilkinson consulted for cardiac clearance for toe amputation surgery - Dr. Mtz will check path and OR biopsy results after amputation, and then start antibiotics - Dr. Davis continue sensipar, renegal and calcium carbonate CKD V on Dialysis - BUN 72 - Cr 13.2 - Renal diet - continue dialysis Tue/Thrus/ Sat HTN - HCTZ 25 mg daily, Metoprolol 25 mg daily. - Avoid JENNY I and ARB due to patient's GFR DM Type II - SSI - Accucheck Ppx - protonix - SCD Pt seen, examined, assessment and plan discussed with Dr Alondra Meyer PGY1, Internal Medicine Resident <Issa Cantu - Last Filed: 09/30/18 23:02> Objective - Vital Signs/Intake and Output Vital Signs (last 24 hours): Temp Pulse Resp BP Pulse Ox 98.5 F 81 20 88/64 L 100 09/30/18 14:00 09/30/18 14:00 09/30/18 14:00 09/30/18 17:04 09/30/18 14:00 Intake and Output: 09/30/18 10/01/18 18:59 06:59 Intake Total 480 Output Total 0 Balance 480 - Medications Medications: Current Medications Acetaminophen (Tylenol 325mg Tab) 650 mg PO Q6H PRN PRN Reason: Pain, Mild (1-3) Amlodipine Besylate (Norvasc) 10 mg PO DAILY [facility] Last Admin: 09/30/18 09:54 Dose: 10 mg Benzocaine/Menthol (Cepacol Sore Throat) 1 gatito MT Q2H PRN PRN Reason: Sore Throat Last Admin: 09/29/18 04:45 Dose: 1 gatito Calcium Carbonate (Oscal) 500 mg PO BID [facility] Last Admin: 09/30/18 17:10 Dose: 500 mg Cinacalcet (Sensipar) 60 mg PO BRKDIN [facility] Last Admin: 09/30/18 17:10 Dose: 60 mg Dextrose (Dextrose 50% Inj) 0 ml IV STAT PRN; Protocol PRN Reason: Hypoglycemia Protocol Guaifenesin/Dextromethorphan (Robitussin Dm) 5 ml PO Q4H PRN PRN Reason: Cough Last Admin: 09/29/18 04:45 Dose: 5 ml Guaifenesin/Dextromethorphan (Mucinex-Dm 600-30 Mg) 1 tab PO BID [facility] Last Admin: 09/30/18 17:10 Dose: 1 tab Hydralazine HCl (Apresoline) 50 mg PO TID [facility] Last Admin: 09/30/18 17:04 Dose: Not Given Dextrose (Dextrose 5% In Water 1000 Ml) 1,000 mls @ 0 mls/hr IV .Q0M PRN; Protocol PRN Reason: Hypoglycemia Protocol Cefepime HCl (Maxipime 1gm) 1 gm in 100 mls @ 100 mls/hr IVPB Q24H [facility]; Protocol Stop: 10/06/18 13:01 Last Admin: 09/30/18 14:35 Dose: 100 mls/hr Insulin Human Lispro (Humalog Med) 0 units SC ACHS [facility]; Protocol Last Admin: 09/30/18 22:04 Dose: Not Given Losartan Potassium (Cozaar) 100 mg PO DAILY [facility] Last Admin: 09/30/18 09:52 Dose: 100 mg Oxycodone/Acetaminophen (Percocet 5/325 Mg Tab) 1 tab PO Q6H PRN PRN Reason: Pain, moderate (4-7) Stop: 10/01/18 15:19 Oxycodone/Acetaminophen (Percocet 5/325 Mg Tab) 2 tab PO Q6H PRN PRN Reason: Pain, severe (8-10) Stop: 10/01/18 15:19 Pantoprazole Sodium (Protonix Ec Tab) 40 mg PO ACB [facility] Last Admin: 09/30/18 09:51 Dose: 40 mg Sevelamer HCl (Renagel) 3,200 mg PO AC [facility] Last Admin: 09/30/18 17:10 Dose: 3,200 mg - Labs Labs: 09/29/18 12:10 09/29/18 12:10 PT 11.3 SECONDS (9.4-12.5) 09/26/18 18:00 INR 0.98 09/26/18 18:00 APTT 32.7 Seconds (25.1-36.5) 09/26/18 18:00 Attending/Attestation - Attestation I have personally seen and examined this patient.: Yes I have fully participated in the care of the patient.: Yes I have reviewed all pertinent clinical information, including history, physical exam and plan: Yes Notes (Text): 48 y/o M with PMH of HTN, ESRD on HD T/T/S, DM admitted for osteomyelitis of the right 5th toe. Pt apparently failed outpatient therapy. podiatry on board, plan is for surgical intervention. ID on board, will f/u path report to determine the need for antibiotics c/w HD as per nephrology orders c/w RISS
[2018-09-28] MEDS ORDERED: Lidocaine 2% Inj (20ml) ONE (13:13)
[2018-09-28] MEDS ORDERED: Midazolam 2 MG/2 ML VIAL ONE ×2 (13:37→13:50)
[2018-09-28] MEDS ORDERED: Gentamicin 80 mg/2mL Inj. ONE (13:42)
--- NOTE | 2018-09-28 13:42 | CP.PCM.APN ---
Subjective - Date & Time of Evaluation Date of Evaluation: 09/28/18 Time of Evaluation: 10:30 - Subjective Subjective: Pt seen and examined at bedside. In no acute distress. Objective - Vital Signs/Intake and Output Vital Signs (last 24 hours): Temp Pulse Resp BP Pulse Ox 98.5 F 80 16 147/94 H 96 09/28/18 13:20 09/28/18 13:20 09/28/18 13:20 09/28/18 13:20 09/28/18 13:20 Intake and Output: 09/28/18 09/28/18 06:59 18:59 Intake Total 360 Balance 360 - Medications Medications: Current Medications Calcium Carbonate (Oscal) 500 mg PO BID [facility] Last Admin: 09/28/18 10:28 Dose: 500 mg Cinacalcet (Sensipar) 60 mg PO BRKDIN [facility] Last Admin: 09/28/18 08:46 Dose: 60 mg Dextrose (Dextrose 50% Inj) 0 ml IV STAT PRN; Protocol PRN Reason: Hypoglycemia Protocol Hydralazine HCl (Apresoline) 25 mg PO BID [facility] Last Admin: 09/28/18 12:15 Dose: 25 mg Dextrose (Dextrose 5% In Water 1000 Ml) 1,000 mls @ 0 mls/hr IV .Q0M PRN; Protocol PRN Reason: Hypoglycemia Protocol Insulin Human Lispro (Humalog Med) 0 units SC [facility]; Protocol Last Admin: 09/28/18 11:48 Dose: Not Given Losartan Potassium (Cozaar) 100 mg PO DAILY [facility] Last Admin: 09/28/18 10:28 Dose: 100 mg Pantoprazole Sodium (Protonix Ec Tab) 40 mg PO ACB [facility] Last Admin: 09/28/18 08:46 Dose: 40 mg Sevelamer HCl (Renagel) 3,200 mg PO AC [facility] Last Admin: 09/28/18 12:20 Dose: 3,200 mg - Labs Labs: 09/27/18 05:00 09/27/18 05:00 PT 11.3 SECONDS (9.4-12.5) 09/26/18 18:00 INR 0.98 09/26/18 18:00 APTT 32.7 Seconds (25.1-36.5) 09/26/18 18:00 - Constitutional Appears: Well, No Acute Distress - Head Exam Head Exam: ATRAUMATIC - Eye Exam Eye Exam: Normal appearance - ENT Exam ENT Exam: Normal Exam - Neck Exam Neck Exam: Full ROM - Respiratory Exam Respiratory Exam: Clear to Ausculation Bilateral, NORMAL BREATHING PATTERN - Cardiovascular Exam Cardiovascular Exam: REGULAR RHYTHM, +S1, +S2 - GI/Abdominal Exam GI & Abdominal Exam: Soft, Normal Bowel Sounds - Rectal Exam Rectal Exam: Deferred - Extremities Exam Additional comments: + wound on R 5th toe - Neurological Exam Neurological Exam: Alert, Awake, Oriented x3 Assessment and Plan - Assessment and Plan (Free Text) Assessment: Pt is a 48 y.o. male with pmhx of htn/hld/osteomylitis/ESRD (T/T/S) who was sent in by Dr. Baig for admission and amputation of R 5th digit toe ulceration that failed outpatient treatment. Plan: Possible R 5th toe amputation today Per ID, will hold off antibiotics. Awaiting path results post amputation. Meds per MAR Will continue to follow.
[2018-09-28] MEDS ORDERED: Lidocaine 2% Inj (20ml) IJ ONE (13:48)
[2018-09-28] MEDS ORDERED: Oxycodone/Acetaminophen 5/325 mg Tab PO PRN ×2 (15:18)
--- NOTE | 2018-09-28 15:22 | PCM.SURG1 ---
Surgeon's Initial Post Op Note - Surgeon's Notes Surgeon: Dr. Jocy Baig [employer] Agronomist: Uyen Sheets PGY1 Type of Anesthesia: MAC, Local Anesthesia Administered By: Dr. Hobbs Pre-Operative Diagnosis: Right fifth digit osteomyelitis Operative Findings: See dictation. materials: 4-0 vicryl, 4-0 nylon, elvira drain. injectibles- 10 cc of 2% lidocaine plain Post-Operative Diagnosis: same Operation Performed: right fifth digit and fifth metatarsal head amputation Specimen/Specimens Removed: pathology: right fifth digit and metatarsal head Estimated Blood Loss: EBL {In ML}: 50 Blood Products Given: N/A Drains Used: No Drains Post-Op Condition: Good Date of Surgery/Procedure: 09/28/18 Time of Surgery/Procedure: 15:21
[2018-09-28] MEDS ORDERED: Sodium Chloride 0.9% 1,000 ML IV SCH (15:30)
--- NOTE | 2018-09-28 20:40 | CON ---
DATE: 09/28/2018 LOCATION: The patient is in room 578, bed 2. REASON FOR CONSULTATION: Cardiac risk stratification for surgery on the fifth toe of the right foot amputation, renal failure, diabetes mellitus, hypertension, hyperlipidemia, coronary artery disease, non-STEMI, diabetes, and obesity. HISTORY OF PRESENT ILLNESS: This is a 48-year-old male admitted with history that he continued to have open wound and pain and discharged from the fifth toe of the right foot. The patient is known to have osteomyelitis, which has been treated extensively with antibiotics, but it is not healing. Also, the patient is having MRSA infections. The patient denies any chest pain, shortness of breath, or palpitations. The patient has been on dialysis. PAST MEDICAL HISTORY: The patient has nephrotic syndrome, end-stage renal failure on dialysis, non-STEMI, diabetic neuropathy, hyperlipidemia, hypertension, diabetes mellitus, and obesity. The patient also has past history of renal problem leading to renal failure and on dialysis, throat cancer, and CAD. PAST SURGICAL HISTORY: The patient has right foot bursa, the patient had spinal surgery at L2 with pin and rods, the patient has fistula on the right arm. PERSONAL HISTORY: He used to smoke two packs a day for 10 years, but stopped five years ago. Denies any alcohol abuse. He used to smoke marijuana off and on, last time he took was three months ago. ALLERGIES: THE PATIENT DENIES ANY ALLERGIES. FAMILY HISTORY: One brother and one sister has coronary artery disease. HOME MEDICATIONS: The patient was on Renagel, Cozaar 100 mg daily, and Sensipar 60 mg p.o. b.i.d. REVIEW OF SYSTEMS: All the systems reviewed, positive as mentioned in the history, otherwise negative. PHYSICAL EXAMINATION: VITAL SIGNS: Blood pressure 150/102, respirations 20, pulse 76, and temperature 97.6. HEENT: Head is normocephalic. Eyes, pupils normal. Conjunctivae, slightly pale. NECK: JVP low. Carotid equal. THORAX: AP diameter normal. LUNGS: Clear. CARDIOVASCULAR: S1 and S2. ABDOMEN: Protuberant. No organomegaly. EXTREMITIES: Right arm has fistula. The patient has osteomyelitis of the fifth toe of the right foot. LABORATORY DATA: WBC is 6.1, hemoglobin 9.5, hematocrit 30.7, and platelets 184. Sodium 138, potassium 4.9, BUN 72, creatinine 13.2, random glucose 111, another random glucose 85, calcium 7.8, phosphorus 5.2, and magnesium 1.9. AST, ALT, protein, and albumin are normal. Prothrombin time normal. Chest x-ray, no active pulmonary disease. EKG showed regular sinus rhythm. PREVIOUS CARDIAC WORKUP: The patient had stress test on 02/02/2018, which showed fixed defect with LV ejection fraction of 45%, it was negative for ischemia. Echo was done on 10/21/2015, which showed normal size LV, [id number] LV hypertrophy, LV ejection fraction of 50-55%, trace to mild mitral regurgitation, moderate tricuspid regurgitation, RVSP of 54 mmHg suggestive of moderate pulmonary hypertension. DIAGNOSIS: Osteomyelitis of the fifth toe of the right foot, renal failure on dialysis, nephrotic syndrome, hypertension, hyperlipidemia, neuropathy, history of non ST elevation myocardial infarction, insulin-dependent diabetes mellitus, and obesity. PLAN: Clinically, the patient's cardiac status stable and as mentioned above, stress test on 02/02/2018 was negative for ischemia, so from cardiac point of view, the patient can go for amputation of the fifth toe of the right foot at moderate risk. The patient is on hydralazine 25 mg b.i.d., losartan 100 mg daily, calcium carbonate 500 mg b.i.d., Protonix 40 mg daily. Right now, the patient is n.p.o. for surgery. We will follow with you. Gail Dawn MD
[2018-09-29] MEDS ORDERED: guaiFENesin DM 100 mg-10 mg/5 ml UD PO PRN (04:27)
[2018-09-29] MEDS ORDERED: Benzocaine/Menthol (Cepacol) Lozenge MT PRN (04:27)
[2018-09-29] MEDS: Insulin Lispro (humaLOG) MEDIUM Coverage SC SCH ×4 (07:35→21:50)
[2018-09-29] MEDS: Pantoprazole 40 mg EC Tab PO SCH (07:54)
--- NOTE | 2018-09-29 09:12 | RAD ---
Date of service: 09/29/2018 PROCEDURE: Right Foot Radiographs. HISTORY: post op COMPARISON: None. FINDINGS: BONES: There has been recent amputation of the 5th toe and distal 5th metatarsal. A surgical drain is seen in place. The foot is otherwise unremarkable JOINTS: Normal. SOFT TISSUES: Normal. OTHER FINDINGS: None. IMPRESSION: There has been recent amputation of the 5th toe and distal 5th metatarsal. A surgical drain is seen in place. The foot is otherwise unremarkable
--- NOTE | 2018-09-29 09:45 | CP.PCM.PN ---
Subjective - Date & Time of Evaluation Date of Evaluation: 09/29/18 Time of Evaluation: 09:42 - Subjective Subjective: Podiatry progress note for Dr. Baig, 48 year old male with past medical history of hypertension, insulin dependent diabetes mellitus, nephrotic syndrome, NSTEMI, ESRD on dialysis T//, diabetic neuropathy, hyperlipidemia 1 day s/p fifth ray amputation with a elvira drain. Denies any acute overnight events. Denies pain to his feet. Patient denies f/n/v/sob. Objective - Vital Signs/Intake and Output Vital Signs (last 24 hours): Temp Pulse Resp BP Pulse Ox 98.2 F 96 H 18 154/98 H 99 09/29/18 06:00 09/29/18 06:00 09/29/18 06:00 09/29/18 06:00 09/29/18 06:00 Intake and Output: 09/29/18 09/29/18 06:59 18:59 Intake Total 900 Balance 900 - Medications Medications: Current Medications Acetaminophen (Tylenol 325mg Tab) 650 mg PO Q6H PRN PRN Reason: Pain, Mild (1-3) Benzocaine/Menthol (Cepacol Sore Throat) 1 gatito MT Q2H PRN PRN Reason: Sore Throat Last Admin: 09/29/18 04:45 Dose: 1 gatito Calcium Carbonate (Oscal) 500 mg PO BID [facility] Last Admin: 09/28/18 17:41 Dose: 500 mg Cinacalcet (Sensipar) 60 mg PO BRKDIN [facility] Last Admin: 09/29/18 07:54 Dose: 60 mg Dextrose (Dextrose 50% Inj) 0 ml IV STAT PRN; Protocol PRN Reason: Hypoglycemia Protocol Guaifenesin/Dextromethorphan (Robitussin Dm) 5 ml PO Q4H PRN PRN Reason: Cough Last Admin: 09/29/18 04:45 Dose: 5 ml Guaifenesin/Dextromethorphan (Mucinex-Dm 600-30 Mg) 1 tab PO BID [facility] Hydralazine HCl (Apresoline) 25 mg PO BID [facility] Last Admin: 09/28/18 17:41 Dose: 25 mg Dextrose (Dextrose 5% In Water 1000 Ml) 1,000 mls @ 0 mls/hr IV .Q0M PRN; Protocol PRN Reason: Hypoglycemia Protocol Insulin Human Lispro (Humalog Med) 0 units SC ACHS [facility]; Protocol Last Admin: 09/29/18 07:35 Dose: Not Given Losartan Potassium (Cozaar) 100 mg PO DAILY [facility] Last Admin: 09/28/18 10:28 Dose: 100 mg Oxycodone/Acetaminophen (Percocet 5/325 Mg Tab) 1 tab PO Q6H PRN PRN Reason: Pain, moderate (4-7) Stop: 10/01/18 15:19 Oxycodone/Acetaminophen (Percocet 5/325 Mg Tab) 2 tab PO Q6H PRN PRN Reason: Pain, severe (8-10) Stop: 10/01/18 15:19 Pantoprazole Sodium (Protonix Ec Tab) 40 mg PO ACB [facility] Last Admin: 09/29/18 07:54 Dose: 40 mg Sevelamer HCl (Renagel) 3,200 mg PO AC [facility] Last Admin: 09/29/18 07:53 Dose: 3,200 mg - Labs Labs: 09/27/18 05:00 09/27/18 05:00 PT 11.3 SECONDS (9.4-12.5) 09/26/18 18:00 INR 0.98 09/26/18 18:00 APTT 32.7 Seconds (25.1-36.5) 09/26/18 18:00 - Constitutional Appears: Well, Non-toxic, No Acute Distress - Head Exam Head Exam: NORMOCEPHALIC - Eye Exam Eye Exam: Normal appearance Pupil Exam: NORMAL ACCOMODATION - ENT Exam ENT Exam: Mucous Membranes Moist - Extremities Exam Additional comments: B/L lower extremity focused exam: Vasc: DP/PT pulses palpable, Cap fill time < 3s, Temp gradient wnl, mild edema noted to lateral aspect of L foot Derm: Surgical incision noted to the dorsal aspect of the right midfoot/forefoot, sutures intact, no wound dehiscence noted, minimal maceration of the site, no active drainage, elvira drain intact, no malodor, no clinical signs of infection Neuro: Gross sensation diminished, protective sensation absent Ortho: No pain upon palpation, rotated R 5th digit, pes planus deformity, hammering of digits 4 on the right foot Assessment and Plan - Assessment and Plan (Free Text) Assessment: 48 yo male seen and evaluated for 1 day s/p right fifth ray amputation. Plan: Patient seen and evaluated Chart, labs and vitals reviewed X-ray of the right foot reviewed; dislocated right fifth toe at the proximal phalanx MRI of the right foot reviewed; bone marrow edema noted in the right fifth digit X-ray of the right foot 09/29- satisfactory post operative results Elvira drain in tact, right foot cleansed with saline and dressed with adaptic, ABD, DSD Elvira drain to be pulled out tomorrow. Forefoot wedge shoe ordered Podiatry will continue to follow the patient
[2018-09-29] MEDS ORDERED: Doxercalciferol 4 mcg/2 ml Inj IV ONE (10:04)
[2018-09-29] MEDS: guaiFENesin-DM 600-30 mg ER Tab PO SCH ×2 (10:15→17:47)
--- NOTE | 2018-09-29 10:28 | CP.PCM.PN ---
Subjective - Date & Time of Evaluation Date of Evaluation: 09/29/18 Time of Evaluation: 07:10 - Subjective Subjective: Awake, alert, no distress Reason for consultation and follow up: Cardiac evaluation for pre-op clearance for foot surgery, history of renal failure,diabetes mellitus,hypertension,hyperlipidemia, coronary artery disease Seen and examined by me and Dr. Dickinson Objective - Vital Signs/Intake and Output Vital Signs (last 24 hours): Temp Pulse Resp BP Pulse Ox 98.2 F 96 H 18 154/98 H 99 09/29/18 06:00 09/29/18 06:00 09/29/18 06:00 09/29/18 06:00 09/29/18 06:00 Intake and Output: 09/29/18 09/29/18 06:59 18:59 Intake Total 900 Balance 900 - Medications Medications: Current Medications Acetaminophen (Tylenol 325mg Tab) 650 mg PO Q6H PRN PRN Reason: Pain, Mild (1-3) Benzocaine/Menthol (Cepacol Sore Throat) 1 gatito MT Q2H PRN PRN Reason: Sore Throat Last Admin: 09/29/18 04:45 Dose: 1 gatito Calcium Carbonate (Oscal) 500 mg PO BID [facility] Last Admin: 09/29/18 10:15 Dose: 500 mg Cinacalcet (Sensipar) 60 mg PO BRKDIN [facility] Last Admin: 09/29/18 07:54 Dose: 60 mg Dextrose (Dextrose 50% Inj) 0 ml IV STAT PRN; Protocol PRN Reason: Hypoglycemia Protocol Guaifenesin/Dextromethorphan (Robitussin Dm) 5 ml PO Q4H PRN PRN Reason: Cough Last Admin: 09/29/18 04:45 Dose: 5 ml Guaifenesin/Dextromethorphan (Mucinex-Dm 600-30 Mg) 1 tab PO BID [facility] Last Admin: 09/29/18 10:15 Dose: 1 tab Hydralazine HCl (Apresoline) 25 mg PO BID [facility] Last Admin: 09/29/18 10:16 Dose: Not Given Dextrose (Dextrose 5% In Water 1000 Ml) 1,000 mls @ 0 mls/hr IV .Q0M PRN; Protocol PRN Reason: Hypoglycemia Protocol Insulin Human Lispro (Humalog Med) 0 units SC [facility]; Protocol Last Admin: 09/29/18 07:35 Dose: Not Given Losartan Potassium (Cozaar) 100 mg PO DAILY [facility] Last Admin: 09/29/18 10:16 Dose: Not Given Oxycodone/Acetaminophen (Percocet 5/325 Mg Tab) 1 tab PO Q6H PRN PRN Reason: Pain, moderate (4-7) Stop: 10/01/18 15:19 Oxycodone/Acetaminophen (Percocet 5/325 Mg Tab) 2 tab PO Q6H PRN PRN Reason: Pain, severe (8-10) Stop: 10/01/18 15:19 Pantoprazole Sodium (Protonix Ec Tab) 40 mg PO ACB [facility] Last Admin: 09/29/18 07:54 Dose: 40 mg Sevelamer HCl (Renagel) 3,200 mg PO AC [facility] Last Admin: 09/29/18 07:53 Dose: 3,200 mg - Labs Labs: 09/27/18 05:00 09/27/18 05:00 PT 11.3 SECONDS (9.4-12.5) 09/26/18 18:00 INR 0.98 09/26/18 18:00 APTT 32.7 Seconds (25.1-36.5) 09/26/18 18:00 - Constitutional Appears: Non-toxic, No Acute Distress - Head Exam Head Exam: NORMAL INSPECTION, NORMOCEPHALIC - Eye Exam Eye Exam: Normal appearance Pupil Exam: NORMAL ACCOMODATION - ENT Exam ENT Exam: Mucous Membranes Moist, Normal Exam - Respiratory Exam Respiratory Exam: Decreased Breath Sounds, NORMAL BREATHING PATTERN - Cardiovascular Exam Cardiovascular Exam: +S1, +S2 - GI/Abdominal Exam GI & Abdominal Exam: Soft, Normal Bowel Sounds - Extremities Exam Additional comments: right dressing with RICKY drain - Neurological Exam Neurological Exam: Alert, Awake, Oriented x3 - Psychiatric Exam Psychiatric exam: Normal Affect, Normal Mood - Skin Skin Exam: Dry, Normal Color, Warm Assessment and Plan - Assessment and Plan (Free Text) Assessment: A 48 year old obese male who came in for right fifth toe wound. History of renal failure,diabetes mellitus,hypertension,hyperlipidemia, coronary artery disease, non-STEMI. consult was called for cardiac clearance for surgery. Moderate risk for surgery. Had right fifth digit and metatarsal amputation yesterday. Stable. Plan: No distress Heart rate controlled Blood pressure stable Cardiac status stable On Apresoline 25 mg BID, Cozaar 100 mg daily Will increase Apresoline for blood pressure Continue current medications Continue current treatment Pain management Will follow up Plan and treatment discussed with Dr. Dickinson
--- NOTE | 2018-09-29 11:14 | CP.PCM.APN ---
Subjective - Date & Time of Evaluation Date of Evaluation: 09/29/18 Time of Evaluation: 11:00 - Subjective Subjective: Pt seen and examined at bedside. Denies pain on R foot. In no acute distress. Objective - Vital Signs/Intake and Output Vital Signs (last 24 hours): Temp Pulse Resp BP Pulse Ox 98.2 F 96 H 18 154/98 H 99 09/29/18 06:00 09/29/18 06:00 09/29/18 06:00 09/29/18 06:00 09/29/18 06:00 Intake and Output: 09/29/18 09/29/18 06:59 18:59 Intake Total 900 Balance 900 - Medications Medications: Current Medications Acetaminophen (Tylenol 325mg Tab) 650 mg PO Q6H PRN PRN Reason: Pain, Mild (1-3) Benzocaine/Menthol (Cepacol Sore Throat) 1 gatito MT Q2H PRN PRN Reason: Sore Throat Last Admin: 09/29/18 04:45 Dose: 1 gatito Calcium Carbonate (Oscal) 500 mg PO BID [facility] Last Admin: 09/29/18 10:15 Dose: 500 mg Cinacalcet (Sensipar) 60 mg PO BRKDIN [facility] Last Admin: 09/29/18 07:54 Dose: 60 mg Dextrose (Dextrose 50% Inj) 0 ml IV STAT PRN; Protocol PRN Reason: Hypoglycemia Protocol Guaifenesin/Dextromethorphan (Robitussin Dm) 5 ml PO Q4H PRN PRN Reason: Cough Last Admin: 09/29/18 04:45 Dose: 5 ml Guaifenesin/Dextromethorphan (Mucinex-Dm 600-30 Mg) 1 tab PO BID [facility] Last Admin: 09/29/18 10:15 Dose: 1 tab Hydralazine HCl (Apresoline) 50 mg PO BID [facility] Dextrose (Dextrose 5% In Water 1000 Ml) 1,000 mls @ 0 mls/hr IV .Q0M PRN; Protocol PRN Reason: Hypoglycemia Protocol Insulin Human Lispro (Humalog Med) 0 units SC ACHS [facility]; Protocol Last Admin: 09/29/18 07:35 Dose: Not Given Losartan Potassium (Cozaar) 100 mg PO DAILY [facility] Last Admin: 09/29/18 10:16 Dose: Not Given Oxycodone/Acetaminophen (Percocet 5/325 Mg Tab) 1 tab PO Q6H PRN PRN Reason: Pain, moderate (4-7) Stop: 10/01/18 15:19 Oxycodone/Acetaminophen (Percocet 5/325 Mg Tab) 2 tab PO Q6H PRN PRN Reason: Pain, severe (8-10) Stop: 10/01/18 15:19 Pantoprazole Sodium (Protonix Ec Tab) 40 mg PO ACB [facility] Last Admin: 09/29/18 07:54 Dose: 40 mg Sevelamer HCl (Renagel) 3,200 mg PO AC [facility] Last Admin: 09/29/18 07:53 Dose: 3,200 mg - Labs Labs: 09/27/18 05:00 09/27/18 05:00 PT 11.3 SECONDS (9.4-12.5) 09/26/18 18:00 INR 0.98 09/26/18 18:00 APTT 32.7 Seconds (25.1-36.5) 09/26/18 18:00 - Constitutional Appears: Well, No Acute Distress - Head Exam Head Exam: ATRAUMATIC - Eye Exam Eye Exam: Normal appearance - ENT Exam ENT Exam: Normal Exam - Neck Exam Neck Exam: Full ROM - Respiratory Exam Respiratory Exam: Clear to Ausculation Bilateral, NORMAL BREATHING PATTERN - Cardiovascular Exam Cardiovascular Exam: REGULAR RHYTHM, +S1, +S2 - GI/Abdominal Exam GI & Abdominal Exam: Soft, Normal Bowel Sounds - Rectal Exam Rectal Exam: Deferred - Extremities Exam Additional comments: R foot w/ c/d/i dressing. elvira drain w/ small amount of sanguineous drainage - Neurological Exam Neurological Exam: Alert, Awake, Oriented x3 Assessment and Plan - Assessment and Plan (Free Text) Assessment: Pt is a 48 y.o. male w/ hx of osteomyelitis of R 5th toe. He is s/p R 5th digit & 5th metatarsal head amputation pod #1. Plan: Pending path results post amputation Per Podiatry, plan to remove elvira drain in AM Poss DC home tomorrow per primary team ID, Renal, and Podiatry on consult Meds per MAR Will continue to follow
[2018-09-29 12:24] LABS: BASO # 0.02 K/mm3 (0.0-2.0); BASO % 0.3 % (0.0-3.0); EOS # 0.3 (0.0-0.7); EOS % 4.9 % (1.5-5.0); GRAN # 3.83 (1.4-6.5); GRAN % 62.2 % (50.0-68.0); HEMOGLOBIN 10.1 g/dL (14.0-18.0); LYMPH # 1.6 (1.2-3.4); LYMPH % 26.6 % (22.0-35.0); MEAN CELL VOLUME 88.9 fl (80.0-105.0); MEAN CORPUSCULAR HGB CONC 31.5 g/dl (31.0-37.0); MEAN PLATELET VOLUME 9.7 fl (7.0-11.0); MONO # 0.4 (0.1-0.6); RBC 3.61 10^6/uL (3.5-6.1); RED CELL DISTRIBUTION WIDTH 14.8 % (11.5-14.5); WHITE BLOOD COUNT 6.2 10^3/uL (4.5-11.0)
[2018-09-29 12:40] LABS: ALB/GLOB RATIO 1.2 (1.1-1.8); ALBUMIN 4.6 g/dL (3.0-4.8)
--- NOTE | 2018-09-29 13:46 | CP.PCM.PN ---
<Leroy Meyer - Last Filed: 09/29/18 14:02> Subjective - Date & Time of Evaluation Date of Evaluation: 09/29/18 Time of Evaluation: 06:35 - Subjective Subjective: Pt seen and examined. Pt has no new complaints at this time. Surgery was successful, no fever or chills. No signs of infection. Objective - Vital Signs/Intake and Output Vital Signs (last 24 hours): Temp Pulse Resp BP Pulse Ox 98.2 F 96 H 18 154/98 H 99 09/29/18 06:00 09/29/18 06:00 09/29/18 06:00 09/29/18 06:00 09/29/18 06:00 Intake and Output: 09/29/18 09/29/18 06:59 18:59 Intake Total 900 Balance 900 - Medications Medications: Current Medications Acetaminophen (Tylenol 325mg Tab) 650 mg PO Q6H PRN PRN Reason: Pain, Mild (1-3) Benzocaine/Menthol (Cepacol Sore Throat) 1 gatito MT Q2H PRN PRN Reason: Sore Throat Last Admin: 09/29/18 04:45 Dose: 1 gatito Calcium Carbonate (Oscal) 500 mg PO BID [facility] Last Admin: 09/29/18 10:15 Dose: 500 mg Cinacalcet (Sensipar) 60 mg PO BRKDIN [facility] Last Admin: 09/29/18 07:54 Dose: 60 mg Dextrose (Dextrose 50% Inj) 0 ml IV STAT PRN; Protocol PRN Reason: Hypoglycemia Protocol Guaifenesin/Dextromethorphan (Robitussin Dm) 5 ml PO Q4H PRN PRN Reason: Cough Last Admin: 09/29/18 04:45 Dose: 5 ml Guaifenesin/Dextromethorphan (Mucinex-Dm 600-30 Mg) 1 tab PO BID [facility] Last Admin: 09/29/18 10:15 Dose: 1 tab Hydralazine HCl (Apresoline) 50 mg PO BID [facility] Dextrose (Dextrose 5% In Water 1000 Ml) 1,000 mls @ 0 mls/hr IV .Q0M PRN; Protocol PRN Reason: Hypoglycemia Protocol Cefepime HCl (Maxipime 1gm) 1 gm in 100 mls @ 100 mls/hr IVPB Q24H [facility]; Protocol Stop: 10/06/18 13:01 Insulin Human Lispro (Humalog Med) 0 units SC ACHS [facility]; Protocol Last Admin: 09/29/18 07:35 Dose: Not Given Losartan Potassium (Cozaar) 100 mg PO DAILY [facility] Last Admin: 09/29/18 10:16 Dose: Not Given Oxycodone/Acetaminophen (Percocet 5/325 Mg Tab) 1 tab PO Q6H PRN PRN Reason: Pain, moderate (4-7) Stop: 10/01/18 15:19 Oxycodone/Acetaminophen (Percocet 5/325 Mg Tab) 2 tab PO Q6H PRN PRN Reason: Pain, severe (8-10) Stop: 10/01/18 15:19 Pantoprazole Sodium (Protonix Ec Tab) 40 mg PO ACB [facility] Last Admin: 09/29/18 07:54 Dose: 40 mg Sevelamer HCl (Renagel) 3,200 mg PO AC [facility] Last Admin: 09/29/18 07:53 Dose: 3,200 mg - Labs Labs: 09/29/18 12:10 09/29/18 12:10 PT 11.3 SECONDS (9.4-12.5) 09/26/18 18:00 INR 0.98 09/26/18 18:00 APTT 32.7 Seconds (25.1-36.5) 09/26/18 18:00 - Constitutional Appears: No Acute Distress - Head Exam Head Exam: ATRAUMATIC, NORMOCEPHALIC - Eye Exam Eye Exam: EOMI - ENT Exam ENT Exam: Mucous Membranes Moist - Neck Exam Neck Exam: Full ROM - Respiratory Exam Respiratory Exam: Clear to Ausculation Bilateral, NORMAL BREATHING PATTERN. absent: Accessory Muscle Use, Respiratory Distress - Cardiovascular Exam Cardiovascular Exam: RRR, +S1, +S2. absent: Diastolic murmur, Murmur - GI/Abdominal Exam GI & Abdominal Exam: Soft, Normal Bowel Sounds - Extremities Exam Extremities Exam: Full ROM. absent: Pedal Edema Additional comments: right foot bandage is clean, dry and intact - Neurological Exam Neurological Exam: Alert, Awake, Oriented x3 - Psychiatric Exam Psychiatric exam: Normal Affect, Normal Mood - Skin Skin Exam: Dry, Intact, Warm Assessment and Plan - Assessment and Plan (Free Text) Assessment: Pt is a 48yo male with a PMH of HTN, IDDM, nephrotic syndrome, NSTEMI, ESRD on dialysis Tue/Thurs/Sat, diabetic neuropathy, HLD, with a wound on his 5th digit of his right foot. Plan: Osteomyelitis of right 5th digit - Blood culture NGTD - wound culture gram negative vernon - MRI from August 2018: marrow edema in the 5th toe as well as dislocation of the PIP joint. Findings are suspicious for osteomyelitis - As per Dr. Baig, patient failed outpatient treatment. - pt went to OR yesterday with podiatry, amputation of 5th toe right foot, heal ing well, drain in place, no signs of infection, will continue to monitor, probable discharge tomorrow - Dr Wilkinson consulted for cardiac clearance for toe amputation surgery - Dr. Mtz will check path and OR biopsy results after amputation, and then start antibiotics - Dr. Davis continue sensipar, renegal and calcium carbonate CKD V on Dialysis - BUN 76 - Cr 13.8 - Renal diet - continue dialysis Tue/Thrus/ Sat HTN - HCTZ 25 mg daily, Metoprolol 25 mg daily, hydralazine 50 PO BID DM Type II - SSI - Accucheck Ppx - protonix - SCD Pt seen, examined, assessment and plan discussed with Dr Faina Meyer PGY1, Internal Medicine Resident <Gennaro Eisenberg - Last Filed: 09/30/18 17:03> Objective - Vital Signs/Intake and Output Vital Signs (last 24 hours): Temp Pulse Resp BP Pulse Ox 98.4 F 87 18 82/46 L 100 09/30/18 06:00 09/30/18 06:00 09/30/18 06:00 09/30/18 14:34 09/30/18 06:00 Intake and Output: 09/30/18 09/30/18 06:59 18:59 Intake Total 1200 Balance 1200 - Medications Medications: Current Medications Acetaminophen (Tylenol 325mg Tab) 650 mg PO Q6H PRN PRN Reason: Pain, Mild (1-3) Amlodipine Besylate (Norvasc) 10 mg PO DAILY [facility] Last Admin: 09/30/18 09:54 Dose: 10 mg Benzocaine/Menthol (Cepacol Sore Throat) 1 gatito MT Q2H PRN PRN Reason: Sore Throat Last Admin: 09/29/18 04:45 Dose: 1 gatito Calcium Carbonate (Oscal) 500 mg PO BID [facility] Last Admin: 09/30/18 09:52 Dose: 500 mg Cinacalcet (Sensipar) 60 mg PO BRKDIN [facility] Last Admin: 09/30/18 09:51 Dose: 60 mg Dextrose (Dextrose 50% Inj) 0 ml IV STAT PRN; Protocol PRN Reason: Hypoglycemia Protocol Guaifenesin/Dextromethorphan (Robitussin Dm) 5 ml PO Q4H PRN PRN Reason: Cough Last Admin: 09/29/18 04:45 Dose: 5 ml Guaifenesin/Dextromethorphan (Mucinex-Dm 600-30 Mg) 1 tab PO BID [facility] Last Admin: 09/30/18 09:51 Dose: 1 tab Hydralazine HCl (Apresoline) 50 mg PO TID [facility] Last Admin: 09/30/18 14:34 Dose: Not Given Dextrose (Dextrose 5% In Water 1000 Ml) 1,000 mls @ 0 mls/hr IV .Q0M PRN; Protocol PRN Reason: Hypoglycemia Protocol Cefepime HCl (Maxipime 1gm) 1 gm in 100 mls @ 100 mls/hr IVPB Q24H [facility]; Protocol Stop: 10/06/18 13:01 Last Admin: 09/30/18 14:35 Dose: 100 mls/hr Insulin Human Lispro (Humalog Med) 0 units SC ACHS [facility]; Protocol Last Admin: 09/30/18 16:44 Dose: Not Given Losartan Potassium (Cozaar) 100 mg PO DAILY [facility] Last Admin: 09/30/18 09:52 Dose: 100 mg Oxycodone/Acetaminophen (Percocet 5/325 Mg Tab) 1 tab PO Q6H PRN PRN Reason: Pain, moderate (4-7) Stop: 10/01/18 15:19 Oxycodone/Acetaminophen (Percocet 5/325 Mg Tab) 2 tab PO Q6H PRN PRN Reason: Pain, severe (8-10) Stop: 10/01/18 15:19 Pantoprazole Sodium (Protonix Ec Tab) 40 mg PO ACB [facility] Last Admin: 09/30/18 09:51 Dose: 40 mg Sevelamer HCl (Renagel) 3,200 mg PO AC [facility] Last Admin: 09/30/18 14:36 Dose: 3,200 mg - Labs Labs: 09/29/18 12:10 09/29/18 12:10 PT 11.3 SECONDS (9.4-12.5) 09/26/18 18:00 INR 0.98 09/26/18 18:00 APTT 32.7 Seconds (25.1-36.5) 09/26/18 18:00 Attending/Attestation - Attestation I have personally seen and examined this patient.: Yes I have fully participated in the care of the patient.: Yes I have reviewed all pertinent clinical information, including history, physical exam and plan: Yes Notes (Text): 09/30/18 16:54 Attending note; Patient seen and examined with resident. Patient is alert and awake. Status post toe amputation. Has drain in place. Not in any acute distress. Going for dialysis this afternoon. Denies any fevers, chills. Tolerating diet. Patient is a 48-year-old male with past medical history significant for hypertension, type 2 diabetes, nephrotic syndrome, coronary artery disease, NSTEMI, and end-stage renal disease on dialysis Wednesday//Wednesday the presented to the emergency room with foul smell from right foot fifth digit ulceration. 1. Right foot/ 5th toe osteomyelitis; s/p amputation of 5th toe right foot. drain in place. Serosanguineous discharge noted. Monitor drain closely. Wound culture pending. Pathology pending. Dressing in place. Podiatry evaluation appreciated. Case discussed with ID in detail. Continue IV Maxipime. Wound culture is positive for Proteus mirabilis. 2. End-stage renal disease on dialysis. Continue dialysis Wednesday//Wednesday. Nephrology evaluation appreciated. Patient is going for dialysis today. 3. Type 2 diabetes. Continue insulin sliding scale. Continue to monitor Accu- Cheks. 4. Hypertension. Continue Cozaar. Hydralazine and Norvasc. Monitor closely with podiatry. Pending pathology from toe amputation to determine the need for long-term antibiotics. The diagnosis, follow-up plan discussed with patient in detail. Upon discharge the patient will follow up with PMD Dr. House and podiatry Dr. Baig.
--- NOTE | 2018-09-29 14:00 | PN ---
DATE: 09/29/2018 LOCATION: The patient in room 578, bed 2. SUBJECTIVE: Detailed progress note has been already written by Anjana Villagran. The patient was admitted with a wound of the fifth toe of the right foot from osteomyelitis which has been treated extensively but not healing. The patient was going for amputations with cardiac clearance, evaluation, risk stratification was requested for which consultation was called. The patient a known case of end stage renal failure, nephrotic syndrome, on dialysis. History of non-STEMI in the past, diabetes, neuropathy, hyperlipidemia, hypertension, obesity. The patient was cleared as a moderate risk for surgery, so the patient underwent amputation yesterday and postop he denies any cardiac syndrome, lying flat in the bed without any cardiac symptoms. PLAN: We will continue to monitor him and continue the present therapy as mentioned in the overall detailed note. Gail Dawn MD
--- NOTE | 2018-09-29 15:15 | CP.PCM.PN ---
Subjective - Date & Time of Evaluation Date of Evaluation: 09/29/18 Time of Evaluation: 15:08 - Subjective Subjective: Nephrology progress note - Ruth PGY - 2 Patient seen and examined at bedside. Patient is s/p 5th toe amputation. Denies any urinary complaints, shortness of breath, or pain. No new complaints. For HD today. Objective - Vital Signs/Intake and Output Vital Signs (last 24 hours): Temp Pulse Resp BP Pulse Ox 98.2 F 96 H 18 154/98 H 99 09/29/18 06:00 09/29/18 06:00 09/29/18 06:00 09/29/18 06:00 09/29/18 06:00 Intake and Output: 09/29/18 09/29/18 06:59 18:59 Intake Total 900 Balance 900 - Medications Medications: Current Medications Acetaminophen (Tylenol 325mg Tab) 650 mg PO Q6H PRN PRN Reason: Pain, Mild (1-3) Benzocaine/Menthol (Cepacol Sore Throat) 1 gatito MT Q2H PRN PRN Reason: Sore Throat Last Admin: 09/29/18 04:45 Dose: 1 gatito Calcium Carbonate (Oscal) 500 mg PO BID [facility] Last Admin: 09/29/18 10:15 Dose: 500 mg Cinacalcet (Sensipar) 60 mg PO BRKDIN [facility] Last Admin: 09/29/18 07:54 Dose: 60 mg Dextrose (Dextrose 50% Inj) 0 ml IV STAT PRN; Protocol PRN Reason: Hypoglycemia Protocol Guaifenesin/Dextromethorphan (Robitussin Dm) 5 ml PO Q4H PRN PRN Reason: Cough Last Admin: 09/29/18 04:45 Dose: 5 ml Guaifenesin/Dextromethorphan (Mucinex-Dm 600-30 Mg) 1 tab PO BID [facility] Last Admin: 09/29/18 10:15 Dose: 1 tab Hydralazine HCl (Apresoline) 50 mg PO BID [facility] Dextrose (Dextrose 5% In Water 1000 Ml) 1,000 mls @ 0 mls/hr IV .Q0M PRN; Protocol PRN Reason: Hypoglycemia Protocol Cefepime HCl (Maxipime 1gm) 1 gm in 100 mls @ 100 mls/hr IVPB Q24H [facility]; Protocol Stop: 10/06/18 13:01 Insulin Human Lispro (Humalog Med) 0 units SC ACHS [facility]; Protocol Last Admin: 09/29/18 07:35 Dose: Not Given Losartan Potassium (Cozaar) 100 mg PO DAILY [facility] Last Admin: 09/29/18 10:16 Dose: Not Given Oxycodone/Acetaminophen (Percocet 5/325 Mg Tab) 1 tab PO Q6H PRN PRN Reason: Pain, moderate (4-7) Stop: 10/01/18 15:19 Oxycodone/Acetaminophen (Percocet 5/325 Mg Tab) 2 tab PO Q6H PRN PRN Reason: Pain, severe (8-10) Stop: 10/01/18 15:19 Pantoprazole Sodium (Protonix Ec Tab) 40 mg PO ACB [facility] Last Admin: 09/29/18 07:54 Dose: 40 mg Sevelamer HCl (Renagel) 3,200 mg PO AC [facility] Last Admin: 09/29/18 07:53 Dose: 3,200 mg - Labs Labs: 09/29/18 12:10 09/29/18 12:10 PT 11.3 SECONDS (9.4-12.5) 09/26/18 18:00 INR 0.98 09/26/18 18:00 APTT 32.7 Seconds (25.1-36.5) 09/26/18 18:00 - Constitutional Appears: Well - Head Exam Head Exam: ATRAUMATIC, NORMAL INSPECTION, NORMOCEPHALIC - Eye Exam Eye Exam: EOMI, Normal appearance, PERRL Pupil Exam: NORMAL ACCOMODATION, PERRL - ENT Exam ENT Exam: Mucous Membranes Moist, Normal Exam - Neck Exam Neck Exam: Full ROM, Normal Inspection. absent: Lymphadenopathy - Respiratory Exam Respiratory Exam: Clear to Ausculation Bilateral, NORMAL BREATHING PATTERN - Cardiovascular Exam Cardiovascular Exam: REGULAR RHYTHM, +S1, +S2. absent: Murmur - GI/Abdominal Exam GI & Abdominal Exam: Soft, Normal Bowel Sounds. absent: Tenderness - Extremities Exam Extremities Exam: Full ROM, Normal Capillary Refill, Normal Inspection. absent: Joint Swelling, Pedal Edema - Back Exam Back Exam: NORMAL INSPECTION - Neurological Exam Neurological Exam: Alert, Awake, CN II-XII Intact, Normal Gait, Oriented x3 - Psychiatric Exam Psychiatric exam: Normal Affect, Normal Mood - Skin Skin Exam: Dry, Intact, Normal Color, Warm - Additional Findings Additional findings: RLE bandage Assessment and Plan - Assessment and Plan (Free Text) Assessment: 48 year old male with past medical history of ESRD on dialysis (/) - hypertension, insulin dependent diabetes mellitus, nephrotic syndrome, NSTEMI, diabetic neuropathy, hyperlipidemia presents with wound of the R lower 5th digit osteo. For possible amputation today. Plan ESRD - Patient for HD today, with goal of 5 kg off UF - Continue Sensepar, [place], and Ca Carbonate HTN - Continue Losartan 100, Hydralazine 50 BID Anemia of CKD and ACD - DAVID per outpatient protocol Osteomyelitis - Vanc with dialysis; f/u trough level
--- NOTE | 2018-09-29 16:06 | PN ---
DATE: 09/29/2018 SUBJECTIVE: The patient is in bed in no acute distress, was seen earlier this morning in 578, bed 2. No fevers and chills. PHYSICAL EXAMINATION: VITAL SIGNS: Temperature is 98, blood pressure is 150/90, respiratory rate of 18, heart rate of 96. HEENT: Unremarkable. NECK: Supple. LUNGS: Have decreased breath sound. HEART: Normal S1, S2. ABDOMEN: Soft. LABORATORY EXAMINATION: Reveals a white count of 6.2, hemoglobin of 10, platelets of 176. Coagulation is noted. Chemistries reveals a pending. Microbiology reveals a Gram-negative vernon in the toe. The blood cultures have no growth. Review of orders.. Reveals the patient to be on his. No antibiotics at this time. ASSESSMENT AND PLAN: This 48-year-old male with osteomyelitis of right fifth toe, history of nephrotic syndrome, end-stage renal disease on hemodialysis, [id number] myocardial infarction, diabetes and now with a Gram-negative vernon from the toe culture and.. Yesterday the patient had the amputation of the fifth toe. We will empirically start Gram-negative coverage pending identification of Gram-negative vernon and the pathology report. We will start cefepime 1 g every 24 hours. FOLLOWUP: Duration and antibiotic choice will be made based on the identification of Gram-negative vernon in the pathology report to see if the margins are clear.. This margins are clear and stenting p.o. antibiotics available a switch to p.o. antibiotics and complete 5-7 days if the margins to have osteomyelitis. We will need prolonged antibiotic based on identification sensitivity of Gram-negative vernon. Junior Mtz MD
[2018-09-29] MEDS: Cefepime 1gm in NS 100ml 1 GM/100 ML BAG IVPB SCH (16:52)
--- NOTE | 2018-09-29 23:57 | OP ---
PROCEDURE DATE: 09/28/2018 SURGEON: Jocy Baig DPM FACING BASTER: Dr. Uyen Wong, PGY-1 ANESTHESIOLOGIST: Franco Hobbs MD ANESTHESIA: IV sedation with local Ceja block to the fifth metatarsal. PREOPERATIVE DIAGNOSIS: Right fifth digit osteomyelitis and fifth metatarsal head osteomyelitis. POSTOPERATIVE DIAGNOSIS: Right fifth digit osteomyelitis and fifth metatarsal head osteomyelitis. NAME OF PROCEDURE: Right foot amputation of fifth digit and fifth metatarsal head resection and removal of all nonviable bone and tissue. INDICATION: The patient is a 48-year-old male with the above diagnosis. The patient has exhausted all conservative treatments at this time and now requires surgical intervention. The patient signed the consent after careful explanation of risks, benefits, complications, and alternatives for surgical procedure. No guarantees were given nor implied. NPO status was confirmed prior to taking the patient to the OR. PREPARATION: The patient was brought into the operating room and placed on operating room table in a supine position. Time-out was performed for identification of the correct patient and procedure. The patient received a total of 10 mL of 2% lidocaine plain to the right fifth ray. The right foot was then prepped and draped in a normal sterile manner and the procedure began. No tourniquet was used during the procedure. DESCRIPTION OF PROCEDURE: Attention was directed to the fourth interspace where an ulcer was noted with granular base which probe to the bone. Another ulcer was also noted sub metatarsal 5 with a granular base. Attention was directed to the dorsal aspect of the fifth digit where a fish-mouth type incision was made in the sulcus of the fifth digit extending to the midshaft of the fifth metatarsal using a #15 blade. The incision was then extended down to the subcutaneous layers down to the level of the bone. Using a bone clamp to stabilize the fifth digit, the fifth digit was then disarticulated from the foot at the level of the fifth metatarsophalangeal joint. All bone and soft tissue were sent to Pathology at this time. Utilizing a sagittal bone saw, the fifth metatarsal head was resected off of the metatarsal, resecting more bone plantarly than dorsally. All sharp edges were then smoothened out with a rasp. All nonviable tissue was then excised from the wound. Pulse lavage with gentamicin was then utilized to copiously irrigate the site. Deep wound cultures were performed at this time. Yuri drain was placed on the lateral aspect of the wound using a hemostat and a #15 blade. The surgical site was then reapproximated starting with capsular and subcuticular tissue utilizing #4-0 Vicryl. The skin was then reapproximated and coapted utilizing #4-0 nylon in a horizontal mattress and simple suture technique. Adaptic was then used on the wound along with gauze, ABD, Kerlix, and Coban. POSTOPERATIVE CONDITION: The patient tolerated the local anesthesia and the procedure well and was escorted to the recovery room with neurovascular status intact to the right foot and vital signs stable. The patient is to weightbear as tolerated using forefoot wedge shoe. The patient will remain in-house. The Podiatry will continue to follow. Upon discharge, the patient is to follow up in Dr. Baig's office. UYEN WONG Jocy Baig DPM [id number]
[2018-09-30] MEDS: Insulin Lispro (humaLOG) MEDIUM Coverage SC SCH ×4 (08:23→22:04)
--- NOTE | 2018-09-30 09:04 | CP.PCM.PN ---
<Uyen Sheets - Last Filed: 09/30/18 11:54> Subjective - Date & Time of Evaluation Date of Evaluation: 09/30/18 Time of Evaluation: 08:59 - Subjective Subjective: Podiatry progress note for Dr. Baig, 48 year old male with past medical history of hypertension, insulin dependent diabetes mellitus, nephrotic syndrome, NSTEMI, ESRD on dialysis T//, diabetic neuropathy, hyperlipidemia 2 day s/p fifth ray amputation with a pen vee drain. Denies any acute overnight events. Denies pain to his feet. Patient denies f/n/v/sob. Objective - Vital Signs/Intake and Output Vital Signs (last 24 hours): Temp Pulse Resp BP Pulse Ox 98.6 F 90 18 149/99 H 94 L 09/29/18 23:28 09/29/18 23:28 09/29/18 23:28 09/29/18 23:28 09/29/18 23:28 Intake and Output: 09/30/18 09/30/18 06:59 18:59 Intake Total 1200 Balance 1200 - Medications Medications: Current Medications Acetaminophen (Tylenol 325mg Tab) 650 mg PO Q6H PRN PRN Reason: Pain, Mild (1-3) Benzocaine/Menthol (Cepacol Sore Throat) 1 gatito MT Q2H PRN PRN Reason: Sore Throat Last Admin: 09/29/18 04:45 Dose: 1 gatito Calcium Carbonate (Oscal) 500 mg PO BID [facility] Last Admin: 09/29/18 17:47 Dose: 500 mg Cinacalcet (Sensipar) 60 mg PO BRKDIN [facility] Last Admin: 09/29/18 16:51 Dose: 60 mg Dextrose (Dextrose 50% Inj) 0 ml IV STAT PRN; Protocol PRN Reason: Hypoglycemia Protocol Guaifenesin/Dextromethorphan (Robitussin Dm) 5 ml PO Q4H PRN PRN Reason: Cough Last Admin: 09/29/18 04:45 Dose: 5 ml Guaifenesin/Dextromethorphan (Mucinex-Dm 600-30 Mg) 1 tab PO BID [facility] Last Admin: 09/29/18 17:47 Dose: 1 tab Hydralazine HCl (Apresoline) 50 mg PO BID [facility] Last Admin: 09/29/18 17:47 Dose: Not Given Dextrose (Dextrose 5% In Water 1000 Ml) 1,000 mls @ 0 mls/hr IV .Q0M PRN; Protocol PRN Reason: Hypoglycemia Protocol Cefepime HCl (Maxipime 1gm) 1 gm in 100 mls @ 100 mls/hr IVPB Q24H [facility]; Protocol Stop: 10/06/18 13:01 Last Admin: 09/29/18 16:52 Dose: 100 mls/hr Insulin Human Lispro (Humalog Med) 0 units SC ACHS [facility]; Protocol Last Admin: 09/30/18 08:23 Dose: Not Given Losartan Potassium (Cozaar) 100 mg PO DAILY [facility] Last Admin: 09/29/18 10:16 Dose: Not Given Oxycodone/Acetaminophen (Percocet 5/325 Mg Tab) 1 tab PO Q6H PRN PRN Reason: Pain, moderate (4-7) Stop: 10/01/18 15:19 Oxycodone/Acetaminophen (Percocet 5/325 Mg Tab) 2 tab PO Q6H PRN PRN Reason: Pain, severe (8-10) Stop: 10/01/18 15:19 Pantoprazole Sodium (Protonix Ec Tab) 40 mg PO ACB [facility] Last Admin: 09/29/18 07:54 Dose: 40 mg Sevelamer HCl (Renagel) 3,200 mg PO AC [facility] Last Admin: 09/29/18 16:51 Dose: 3,200 mg - Labs Labs: 09/29/18 12:10 09/29/18 12:10 PT 11.3 SECONDS (9.4-12.5) 09/26/18 18:00 INR 0.98 09/26/18 18:00 APTT 32.7 Seconds (25.1-36.5) 09/26/18 18:00 - Constitutional Appears: Well, Non-toxic, No Acute Distress - Head Exam Head Exam: ATRAUMATIC, NORMOCEPHALIC - Eye Exam Eye Exam: Normal appearance Pupil Exam: NORMAL ACCOMODATION - ENT Exam ENT Exam: Mucous Membranes Moist - Extremities Exam Additional comments: B/L lower extremity focused exam: Vasc: DP/PT pulses palpable, Cap fill time < 3s, Temp gradient wnl, mild edema noted to lateral aspect of L foot Derm: Surgical incision noted to the dorsal aspect of the right midfo ot/forefoot, sutures intact, no wound dehiscence noted, minimal maceration of the site, no active drainage, yuri drain intact, no malodor, no clinical signs of infection Neuro: Gross sensation diminished, protective sensation absent Ortho: No pain upon palpation, rotated R 5th digit, pes planus deformity, hammering of digits 4 on the right foot - Neurological Exam Neurological Exam: Alert, Awake Assessment and Plan - Assessment and Plan (Free Text) Assessment: 48 yo male seen and evaluated for 2 days s/p right fifth ray amputation. Plan: Patient seen and evaluated Chart, labs and vitals reviewed X-ray of the right foot reviewed; dislocated right fifth toe at the proximal phalanx MRI of the right foot reviewed; bone marrow edema noted in the right fifth digit X-ray of the right foot 09/29- satisfactory post operative results Wound cultures: proteus mirabilis [place] drain in tact, right foot cleansed with saline and dressed with adaptic, ABD, DSD Yuri drain to remain in place due to excessive sanguinous drainage; to be removed tomorrow Patient to weight bear as tolerated using the forefoot wedge shoe. Podiatry will continue to follow the patient <Jair Colon - Last Filed: 09/30/18 17:43> Objective - Vital Signs/Intake and Output Vital Signs (last 24 hours): Temp Pulse Resp BP Pulse Ox 98.5 F 81 20 88/64 L 100 09/30/18 14:00 09/30/18 14:00 09/30/18 14:00 09/30/18 17:04 09/30/18 14:00 Intake and Output: 09/30/18 09/30/18 06:59 18:59 Intake Total 1200 Balance 1200 - Medications Medications: Current Medications Acetaminophen (Tylenol 325mg Tab) 650 mg PO Q6H PRN PRN Reason: Pain, Mild (1-3) Amlodipine Besylate (Norvasc) 10 mg PO DAILY [facility] Last Admin: 09/30/18 09:54 Dose: 10 mg Benzocaine/Menthol (Cepacol Sore Throat) 1 gatito MT Q2H PRN PRN Reason: Sore Throat Last Admin: 09/29/18 04:45 Dose: 1 gatito Calcium Carbonate (Oscal) 500 mg PO BID [facility] Last Admin: 09/30/18 17:10 Dose: 500 mg Cinacalcet (Sensipar) 60 mg PO BRKDIN [facility] Last Admin: 09/30/18 17:10 Dose: 60 mg Dextrose (Dextrose 50% Inj) 0 ml IV STAT PRN; Protocol PRN Reason: Hypoglycemia Protocol Guaifenesin/Dextromethorphan (Robitussin Dm) 5 ml PO Q4H PRN PRN Reason: Cough Last Admin: 09/29/18 04:45 Dose: 5 ml Guaifenesin/Dextromethorphan (Mucinex-Dm 600-30 Mg) 1 tab PO BID [facility] Last Admin: 09/30/18 17:10 Dose: 1 tab Hydralazine HCl (Apresoline) 50 mg PO TID [facility] Last Admin: 09/30/18 17:04 Dose: Not Given Dextrose (Dextrose 5% In Water 1000 Ml) 1,000 mls @ 0 mls/hr IV .Q0M PRN; Protocol PRN Reason: Hypoglycemia Protocol Cefepime HCl (Maxipime 1gm) 1 gm in 100 mls @ 100 mls/hr IVPB Q24H [facility]; Protocol Stop: 10/06/18 13:01 Last Admin: 09/30/18 14:35 Dose: 100 mls/hr Insulin Human Lispro (Humalog Med) 0 units SC [facility]; Protocol Last Admin: 09/30/18 16:44 Dose: Not Given Losartan Potassium (Cozaar) 100 mg PO DAILY [facility] Last Admin: 09/30/18 09:52 Dose: 100 mg Oxycodone/Acetaminophen (Percocet 5/325 Mg Tab) 1 tab PO Q6H PRN PRN Reason: Pain, moderate (4-7) Stop: 10/01/18 15:19 Oxycodone/Acetaminophen (Percocet 5/325 Mg Tab) 2 tab PO Q6H PRN PRN Reason: Pain, severe (8-10) Stop: 10/01/18 15:19 Pantoprazole Sodium (Protonix Ec Tab) 40 mg PO ACB [facility] Last Admin: 09/30/18 09:51 Dose: 40 mg Sevelamer HCl (Renagel) 3,200 mg PO AC [facility] Last Admin: 09/30/18 17:10 Dose: 3,200 mg - Labs Labs: 09/29/18 12:10 09/29/18 12:10 PT 11.3 SECONDS (9.4-12.5) 09/26/18 18:00 INR 0.98 09/26/18 18:00 APTT 32.7 Seconds (25.1-36.5) 09/26/18 18:00 Attending/Attestation - Attestation I have personally seen and examined this patient.: Yes I have fully participated in the care of the patient.: Yes I have reviewed all pertinent clinical information, including history, physical exam and plan: Yes
[2018-09-30] MEDS: Pantoprazole 40 mg EC Tab PO SCH (09:51)
[2018-09-30] MEDS: guaiFENesin-DM 600-30 mg ER Tab PO SCH ×2 (09:51→17:10)
--- NOTE | 2018-09-30 10:18 | CP.PCM.PN ---
<Juan C Hale - Last Filed: 09/30/18 13:15> Subjective - Date & Time of Evaluation Date of Evaluation: 09/30/18 Time of Evaluation: 09:15 - Subjective Subjective: Nephrology progress note: Pt seen and examined at bedside. No acute events overnight. Pt complains of mild pain at the surgical site. Has HD yesterday. No other complaints. 12 Point ROS neg other than stated above Objective - Vital Signs/Intake and Output Vital Signs (last 24 hours): Temp Pulse Resp BP Pulse Ox 98.4 F 87 18 145/96 H 100 09/30/18 06:00 09/30/18 06:00 09/30/18 06:00 09/30/18 09:54 09/30/18 06:00 Intake and Output: 09/30/18 09/30/18 06:59 18:59 Intake Total 1200 Balance 1200 - Medications Medications: Current Medications Acetaminophen (Tylenol 325mg Tab) 650 mg PO Q6H PRN PRN Reason: Pain, Mild (1-3) Amlodipine Besylate (Norvasc) 10 mg PO DAILY [facility] Last Admin: 09/30/18 09:54 Dose: 10 mg Benzocaine/Menthol (Cepacol Sore Throat) 1 gatito MT Q2H PRN PRN Reason: Sore Throat Last Admin: 09/29/18 04:45 Dose: 1 gatito Calcium Carbonate (Oscal) 500 mg PO BID [facility] Last Admin: 09/30/18 09:52 Dose: 500 mg Cinacalcet (Sensipar) 60 mg PO BRKDIN [facility] Last Admin: 09/30/18 09:51 Dose: 60 mg Dextrose (Dextrose 50% Inj) 0 ml IV STAT PRN; Protocol PRN Reason: Hypoglycemia Protocol Guaifenesin/Dextromethorphan (Robitussin Dm) 5 ml PO Q4H PRN PRN Reason: Cough Last Admin: 09/29/18 04:45 Dose: 5 ml Guaifenesin/Dextromethorphan (Mucinex-Dm 600-30 Mg) 1 tab PO BID [facility] Last Admin: 09/30/18 09:51 Dose: 1 tab Hydralazine HCl (Apresoline) 50 mg PO TID [facility] Last Admin: 09/30/18 09:51 Dose: 50 mg Dextrose (Dextrose 5% In Water 1000 Ml) 1,000 mls @ 0 mls/hr IV .Q0M PRN; Protocol PRN Reason: Hypoglycemia Protocol Cefepime HCl (Maxipime 1gm) 1 gm in 100 mls @ 100 mls/hr IVPB Q24H [facility]; Protocol Stop: 10/06/18 13:01 Last Admin: 09/29/18 16:52 Dose: 100 mls/hr Insulin Human Lispro (Humalog Med) 0 units SC ACHS [facility]; Protocol Last Admin: 09/30/18 08:23 Dose: Not Given Losartan Potassium (Cozaar) 100 mg PO DAILY [facility] Last Admin: 09/30/18 09:52 Dose: 100 mg Oxycodone/Acetaminophen (Percocet 5/325 Mg Tab) 1 tab PO Q6H PRN PRN Reason: Pain, moderate (4-7) Stop: 10/01/18 15:19 Oxycodone/Acetaminophen (Percocet 5/325 Mg Tab) 2 tab PO Q6H PRN PRN Reason: Pain, severe (8-10) Stop: 10/01/18 15:19 Pantoprazole Sodium (Protonix Ec Tab) 40 mg PO ACB [facility] Last Admin: 09/30/18 09:51 Dose: 40 mg Sevelamer HCl (Renagel) 3,200 mg PO AC [facility] Last Admin: 09/30/18 09:50 Dose: 3,200 mg - Labs Labs: 09/29/18 12:10 09/29/18 12:10 PT 11.3 SECONDS (9.4-12.5) 09/26/18 18:00 INR 0.98 09/26/18 18:00 APTT 32.7 Seconds (25.1-36.5) 09/26/18 18:00 - Constitutional Appears: No Acute Distress - Head Exam Head Exam: ATRAUMATIC, NORMOCEPHALIC - Eye Exam Eye Exam: EOMI - ENT Exam ENT Exam: Mucous Membranes Moist - Cardiovascular Exam Cardiovascular Exam: RRR, +S1, +S2 - GI/Abdominal Exam GI & Abdominal Exam: Soft. absent: Tenderness - Extremities Exam Extremities Exam: absent: Calf Tenderness, Pedal Edema Additional comments: Splint/Bandage placed by podiatry on RLE - Neurological Exam Neurological Exam: Alert, Awake - Psychiatric Exam Psychiatric exam: Normal Mood - Skin Skin Exam: Dry, Warm Assessment and Plan - Assessment and Plan (Free Text) Assessment: 48 year old male with past medical history of ESRD on dialysis () - hypertension, insulin dependent diabetes mellitus, nephrotic syndrome, NSTEMI, diabetic neuropathy, hyperlipidemia presents with osteomyelitis of R lower 5th digit s/p amputation. - Plan for HD tomorrow on - schedule - Continue Sensepar, [place], and Calcium Carbonate - For HTN continue Losartan 100mg daily , - Recommend d/c Hydralazine, or Norvasc as both were recently started and to prevent any episodes of hypotension - DAVID per outpatient protocol - Cont with Cefepime as per ID Case and plan was reviewed and discussed with Dr Davis. <Jay Davis - Last Filed: 10/01/18 08:21> Objective - Vital Signs/Intake and Output Vital Signs (last 24 hours): Temp Pulse Resp BP Pulse Ox 98.5 F 84 20 142/88 98 09/30/18 22:00 09/30/18 22:00 09/30/18 22:00 09/30/18 22:00 09/30/18 22:00 Intake and Output: 10/01/18 10/01/18 06:59 18:59 Intake Total 840 Output Total 0 Balance 840 - Medications Medications: Current Medications Acetaminophen (Tylenol 325mg Tab) 650 mg PO Q6H PRN PRN Reason: Pain, Mild (1-3) Amlodipine Besylate (Norvasc) 10 mg PO DAILY [facility] Last Admin: 09/30/18 09:54 Dose: 10 mg Benzocaine/Menthol (Cepacol Sore Throat) 1 gatito MT Q2H PRN PRN Reason: Sore Throat Last Admin: 09/29/18 04:45 Dose: 1 gatito Calcium Carbonate (Oscal) 500 mg PO BID [facility] Last Admin: 09/30/18 17:10 Dose: 500 mg Cinacalcet (Sensipar) 60 mg PO BRKDIN [facility] Last Admin: 09/30/18 17:10 Dose: 60 mg Dextrose (Dextrose 50% Inj) 0 ml IV STAT PRN; Protocol PRN Reason: Hypoglycemia Protocol Guaifenesin/Dextromethorphan (Robitussin Dm) 5 ml PO Q4H PRN PRN Reason: Cough Last Admin: 09/29/18 04:45 Dose: 5 ml Guaifenesin/Dextromethorphan (Mucinex-Dm 600-30 Mg) 1 tab PO BID [facility] Last Admin: 09/30/18 17:10 Dose: 1 tab Hydralazine HCl (Apresoline) 50 mg PO TID [facility] Last Admin: 09/30/18 17:04 Dose: Not Given Dextrose (Dextrose 5% In Water 1000 Ml) 1,000 mls @ 0 mls/hr IV .Q0M PRN; Protocol PRN Reason: Hypoglycemia Protocol Cefepime HCl (Maxipime 1gm) 1 gm in 100 mls @ 100 mls/hr IVPB Q24H [facility]; Protocol Stop: 10/06/18 13:01 Last Admin: 09/30/18 14:35 Dose: 100 mls/hr Insulin Human Lispro (Humalog Med) 0 units SC ACHS [facility]; Protocol Last Admin: 09/30/18 22:04 Dose: Not Given Losartan Potassium (Cozaar) 100 mg PO DAILY [facility] Last Admin: 09/30/18 09:52 Dose: 100 mg Oxycodone/Acetaminophen (Percocet 5/325 Mg Tab) 1 tab PO Q6H PRN PRN Reason: Pain, moderate (4-7) Stop: 10/01/18 15:19 Oxycodone/Acetaminophen (Percocet 5/325 Mg Tab) 2 tab PO Q6H PRN PRN Reason: Pain, severe (8-10) Stop: 10/01/18 15:19 Pantoprazole Sodium (Protonix Ec Tab) 40 mg PO ACB [facility] Last Admin: 09/30/18 09:51 Dose: 40 mg Sevelamer HCl (Renagel) 3,200 mg PO AC [facility] Last Admin: 09/30/18 17:10 Dose: 3,200 mg - Labs Labs: 09/29/18 12:10 09/29/18 12:10 PT 11.3 SECONDS (9.4-12.5) 09/26/18 18:00 INR 0.98 09/26/18 18:00 APTT 32.7 Seconds (25.1-36.5) 09/26/18 18:00 Attending/Attestation - Attestation I have personally seen and examined this patient.: Yes I have fully participated in the care of the patient.: Yes I have reviewed all pertinent clinical information, including history, physical exam and plan: Yes Notes (Text): Patient seen and examined; I agree with the resident's note as above with the following additions/edits: Patient with htn, dm, and ESRD on HD, admitted with OM of R 5th digit, now s/p amputation, awaiting bone pathology results to determine length of antibiotic treatment; Patient reports feeling well; did have lightheadedness during HD session yesterday, UF goal had to be cut to just under 4L; otherwise, tolerating diet we ll; BP control erratic; was only on losartan 100 mg daily as outpatient with acceptable BP readings; review of record shows patient didn't get dose yesterday due to being in HD; should receive the dose after HD to prevent BP from rebounding; will discuss with nursing staff; otherwise, will hold amlodipine and hydralazine for now (hypotensive readings this afternoon/evening); Mild hypocalcemia due to being on sensipar, supplementing with PO calcium carbonate for now; increasing hectorol dose on HD; Hgb stable, at goal for CKD (10-11g); will dose aranesp on HD tomorrow; Will f/u with ID regarding IV antibiotics to see if it needs to be given on HD (gentamicin would be acceptable in this patient with virtually no residual renal function);
--- NOTE | 2018-09-30 12:05 | CP.PCM.APN ---
Subjective - Date & Time of Evaluation Date of Evaluation: 09/30/18 Time of Evaluation: 11:15 - Subjective Subjective: Pt seen and examined at bedside. Denies pain to R foot. No acute events overnight. Objective - Vital Signs/Intake and Output Vital Signs (last 24 hours): Temp Pulse Resp BP Pulse Ox 98.4 F 87 18 145/96 H 100 09/30/18 06:00 09/30/18 06:00 09/30/18 06:00 09/30/18 09:54 09/30/18 06:00 Intake and Output: 09/30/18 09/30/18 06:59 18:59 Intake Total 1200 Balance 1200 - Medications Medications: Current Medications Acetaminophen (Tylenol 325mg Tab) 650 mg PO Q6H PRN PRN Reason: Pain, Mild (1-3) Amlodipine Besylate (Norvasc) 10 mg PO DAILY [facility] Last Admin: 09/30/18 09:54 Dose: 10 mg Benzocaine/Menthol (Cepacol Sore Throat) 1 gatito MT Q2H PRN PRN Reason: Sore Throat Last Admin: 09/29/18 04:45 Dose: 1 gatito Calcium Carbonate (Oscal) 500 mg PO BID [facility] Last Admin: 09/30/18 09:52 Dose: 500 mg Cinacalcet (Sensipar) 60 mg PO BRKDIN [facility] Last Admin: 09/30/18 09:51 Dose: 60 mg Dextrose (Dextrose 50% Inj) 0 ml IV STAT PRN; Protocol PRN Reason: Hypoglycemia Protocol Guaifenesin/Dextromethorphan (Robitussin Dm) 5 ml PO Q4H PRN PRN Reason: Cough Last Admin: 09/29/18 04:45 Dose: 5 ml Guaifenesin/Dextromethorphan (Mucinex-Dm 600-30 Mg) 1 tab PO BID [facility] Last Admin: 09/30/18 09:51 Dose: 1 tab Hydralazine HCl (Apresoline) 50 mg PO TID [facility] Last Admin: 09/30/18 09:51 Dose: 50 mg Dextrose (Dextrose 5% In Water 1000 Ml) 1,000 mls @ 0 mls/hr IV .Q0M PRN; Protocol PRN Reason: Hypoglycemia Protocol Cefepime HCl (Maxipime 1gm) 1 gm in 100 mls @ 100 mls/hr IVPB Q24H [facility]; Protocol Stop: 10/06/18 13:01 Last Admin: 09/29/18 16:52 Dose: 100 mls/hr Insulin Human Lispro (Humalog Med) 0 units SC ACHS [facility]; Protocol Last Admin: 09/30/18 08:23 Dose: Not Given Losartan Potassium (Cozaar) 100 mg PO DAILY [facility] Last Admin: 09/30/18 09:52 Dose: 100 mg Oxycodone/Acetaminophen (Percocet 5/325 Mg Tab) 1 tab PO Q6H PRN PRN Reason: Pain, moderate (4-7) Stop: 10/01/18 15:19 Oxycodone/Acetaminophen (Percocet 5/325 Mg Tab) 2 tab PO Q6H PRN PRN Reason: Pain, severe (8-10) Stop: 10/01/18 15:19 Pantoprazole Sodium (Protonix Ec Tab) 40 mg PO ACB [facility] Last Admin: 09/30/18 09:51 Dose: 40 mg Sevelamer HCl (Renagel) 3,200 mg PO AC [facility] Last Admin: 09/30/18 09:50 Dose: 3,200 mg - Labs Labs: 09/29/18 12:10 09/29/18 12:10 PT 11.3 SECONDS (9.4-12.5) 09/26/18 18:00 INR 0.98 09/26/18 18:00 APTT 32.7 Seconds (25.1-36.5) 09/26/18 18:00 - Constitutional Appears: Well, No Acute Distress - Head Exam Head Exam: ATRAUMATIC, NORMOCEPHALIC - Eye Exam Eye Exam: Normal appearance - ENT Exam ENT Exam: Normal Exam - Neck Exam Neck Exam: Full ROM - Respiratory Exam Respiratory Exam: Clear to Ausculation Bilateral, NORMAL BREATHING PATTERN - Cardiovascular Exam Cardiovascular Exam: REGULAR RHYTHM, +S1, +S2 - GI/Abdominal Exam GI & Abdominal Exam: Soft, Normal Bowel Sounds - Rectal Exam Rectal Exam: Deferred - Extremities Exam Additional comments: R foot with dressing c/d/i. [place] drain w/ sanguineous drainage. - Neurological Exam Neurological Exam: Alert, Awake, Oriented x3 Assessment and Plan - Assessment and Plan (Free Text) Assessment: Pt is a 48 y.o. male w/ hx of osteomyelitis of R 5th toe. He is s/p R 5th digit & 5th metatarsal head amputation pod #2. D/W Podiatry, will keep elvira drain for another day d/t excessive sanguineous drain & will plan to remove drain in AM. Plan: Podiatry - possible removal of drain in AM Meds per MAR Will continue to follow
--- NOTE | 2018-09-30 14:07 | PN ---
DATE: 09/30/2018 REASON FOR CONSULTATION: Preoperative evaluation for risk stratification for amputation of the toe, status post amputation of right toe and drainage, history of coronary artery disease, non-ST segment myocardial infarction, diabetes, and obesity. SUBJECTIVE: The patient denied any chest pain, shortness of breath, or any palpitation. PHYSICAL EXAMINATION: VITAL SIGNS: Temperature afebrile, heart rate 90, blood pressure 121/85. HEENT: PERRLA intact. NECK: Supple. No carotid bruits or thyromegaly. CHEST: Clear to auscultation. HEART: S1 and S2, regular. ABDOMEN: Soft. EXTREMITIES: Clubbing and cyanosis negative. LABORATORY DATA: Blood workup: WBC 6.2, hemoglobin 10.2, hematocrit 32.1, and platelet count 176. Chemistry shows sodium as of yesterday 130, potassium 5.8, chloride 102, carbon dioxide 25, anion gap of 20, BUN 76, creatinine 13.8. IMPRESSION: A 48-year-old morbidly obese male with past medical history significant for end-stage renal disease on dialysis, history of peripheral arterial disease, status post amputation of the toe, status post fifth toe. Postop, Cardiology consult was called for preop evaluation and risk stratification. The patient went for amputation. Denied any chest pain, shortness of breath, or any palpitation, history of osteomyelitis, history of nephrotic symptoms, hypertension, hyperlipidemia, neuropathy, history of non-ST segment myocardial infarction, insulin-dependent diabetes, hypertension, end-stage renal disease, stress test on 01/24/2000 negative for ischemia. RECOMMENDATION: Continue aggressive treatment. The patient's blood pressure is still elevated, not well controlled. We will increase hydralazine to 50 b.i.d. from yesterday. If it still remains elevated, we will increase to 150 t.i.d. from today. We will follow with you. I will also add Norvasc 10 for better control of the blood pressure in addition to Cozaar 100. [address] Eisenberg, for providing us opportunity in taking care of the patient, Yonis Edwards. Gail Dickinson MD [facility] # [id number]
[2018-09-30] MEDS: Cefepime 1gm in NS 100ml 1 GM/100 ML BAG IVPB SCH (14:35)
--- NOTE | 2018-09-30 14:48 | CP.PCM.PN ---
<Leroy Meyer - Last Filed: 09/30/18 14:59> Subjective - Date & Time of Evaluation Date of Evaluation: 09/30/18 Time of Evaluation: 07:00 - Subjective Subjective: Pt seen and examined. Denies chest pain, SOB, fever, chills, foot pain, so signs of infection. Objective - Vital Signs/Intake and Output Vital Signs (last 24 hours): Temp Pulse Resp BP Pulse Ox 98.4 F 87 18 82/46 L 100 09/30/18 06:00 09/30/18 06:00 09/30/18 06:00 09/30/18 14:34 09/30/18 06:00 Intake and Output: 09/30/18 09/30/18 06:59 18:59 Intake Total 1200 Balance 1200 - Medications Medications: Current Medications Acetaminophen (Tylenol 325mg Tab) 650 mg PO Q6H PRN PRN Reason: Pain, Mild (1-3) Amlodipine Besylate (Norvasc) 10 mg PO DAILY [facility] Last Admin: 09/30/18 09:54 Dose: 10 mg Benzocaine/Menthol (Cepacol Sore Throat) 1 gatito MT Q2H PRN PRN Reason: Sore Throat Last Admin: 09/29/18 04:45 Dose: 1 gatito Calcium Carbonate (Oscal) 500 mg PO BID [facility] Last Admin: 09/30/18 09:52 Dose: 500 mg Cinacalcet (Sensipar) 60 mg PO BRKDIN [facility] Last Admin: 09/30/18 09:51 Dose: 60 mg Dextrose (Dextrose 50% Inj) 0 ml IV STAT PRN; Protocol PRN Reason: Hypoglycemia Protocol Guaifenesin/Dextromethorphan (Robitussin Dm) 5 ml PO Q4H PRN PRN Reason: Cough Last Admin: 09/29/18 04:45 Dose: 5 ml Guaifenesin/Dextromethorphan (Mucinex-Dm 600-30 Mg) 1 tab PO BID [facility] Last Admin: 09/30/18 09:51 Dose: 1 tab Hydralazine HCl (Apresoline) 50 mg PO TID [facility] Last Admin: 09/30/18 14:34 Dose: Not Given Dextrose (Dextrose 5% In Water 1000 Ml) 1,000 mls @ 0 mls/hr IV .Q0M PRN; Pro tocol PRN Reason: Hypoglycemia Protocol Cefepime HCl (Maxipime 1gm) 1 gm in 100 mls @ 100 mls/hr IVPB Q24H [facility]; Protocol Stop: 10/06/18 13:01 Last Admin: 09/30/18 14:35 Dose: 100 mls/hr Insulin Human Lispro (Humalog Med) 0 units SC ACHS [facility]; Protocol Last Admin: 09/30/18 12:43 Dose: Not Given Losartan Potassium (Cozaar) 100 mg PO DAILY [facility] Last Admin: 09/30/18 09:52 Dose: 100 mg Oxycodone/Acetaminophen (Percocet 5/325 Mg Tab) 1 tab PO Q6H PRN PRN Reason: Pain, moderate (4-7) Stop: 10/01/18 15:19 Oxycodone/Acetaminophen (Percocet 5/325 Mg Tab) 2 tab PO Q6H PRN PRN Reason: Pain, severe (8-10) Stop: 10/01/18 15:19 Pantoprazole Sodium (Protonix Ec Tab) 40 mg PO ACB [facility] Last Admin: 09/30/18 09:51 Dose: 40 mg Sevelamer HCl (Renagel) 3,200 mg PO AC [facility] Last Admin: 09/30/18 14:36 Dose: 3,200 mg - Labs Labs: 09/29/18 12:10 09/29/18 12:10 PT 11.3 SECONDS (9.4-12.5) 09/26/18 18:00 INR 0.98 09/26/18 18:00 APTT 32.7 Seconds (25.1-36.5) 09/26/18 18:00 - Constitutional Appears: No Acute Distress - Head Exam Head Exam: ATRAUMATIC, NORMOCEPHALIC - Eye Exam Eye Exam: EOMI - ENT Exam ENT Exam: Mucous Membranes Moist - Neck Exam Neck Exam: Full ROM - Respiratory Exam Respiratory Exam: Clear to Ausculation Bilateral, NORMAL BREATHING PATTERN. absent: Accessory Muscle Use, Respiratory Distress - Cardiovascular Exam Cardiovascular Exam: RRR, +S1, +S2. absent: Diastolic murmur, Murmur - GI/Abdominal Exam GI & Abdominal Exam: Soft, Normal Bowel Sounds - Extremities Exam Extremities Exam: Full ROM Additional comments: right foot bandage, clean, dry, and intact - Neurological Exam Neurological Exam: Alert, Awake, Oriented x3 - Psychiatric Exam Psychiatric exam: Normal Affect, Normal Mood - Skin Skin Exam: Dry, Intact, Normal Color, Warm Assessment and Plan - Assessment and Plan (Free Text) Assessment: Pt is a 48yo male with a PMH of HTN, IDDM, nephrotic syndrome, NSTEMI, ESRD on dialysis Tue/Thurs/Sat, diabetic neuropathy, HLD, with a wound on his 5th digit of his right foot. Plan: Osteomyelitis of right 5th digit - Blood culture NGTD - MRI from August 2018: marrow edema in the 5th toe as well as dislocation of the PIP joint. Findings are suspicious for osteomyelitis - As per Dr. Baig, patient failed outpatient treatment - OR with podiatry, amputation of 5th toe right foot, healing well, drain in place, no signs of infection, will continue to monitor - pt drain is draining serosanginous fluid, in place and working well - wound culture 09/28/18 proteus mirabilis - QTc 478, when switching to PO antibiotics tomorrow - Dr Wilkinson consulted for cardiac clearance for toe amputation surgery - Dr. Mtz will check path and OR biopsy results after path results for amputation, start Maxipime - Dr. Davis continue sensipar, renegal and calcium carbonate CKD V on Dialysis - BUN 76, Cr 13.8 - continue dialysis Tue/Thrus/ Sat - Renal diet DM Type II - SSI - Accucheck HTN - HCTZ 25 mg daily - Metoprolol 25 mg daily - hydralazine 50 PO BID Ppx - protonix - SCD Pt seen, examined, assessment and plan discussed with Dr Faina Meyer PGY1, Internal Medicine Resident <Gennaro Eisenberg - Last Filed: 09/30/18 17:05> Objective - Vital Signs/Intake and Output Vital Signs (last 24 hours): Temp Pulse Resp BP Pulse Ox 98.4 F 87 18 82/46 L 100 09/30/18 06:00 09/30/18 06:00 09/30/18 06:00 09/30/18 14:34 09/30/18 06:00 Intake and Output: 09/30/18 09/30/18 06:59 18:59 Intake Total 1200 Balance 1200 - Medications Medications: Current Medications Acetaminophen (Tylenol 325mg Tab) 650 mg PO Q6H PRN PRN Reason: Pain, Mild (1-3) Amlodipine Besylate (Norvasc) 10 mg PO DAILY [facility] Last Admin: 09/30/18 09:54 Dose: 10 mg Benzocaine/Menthol (Cepacol Sore Throat) 1 gatito MT Q2H PRN PRN Reason: Sore Throat Last Admin: 09/29/18 04:45 Dose: 1 gatito Calcium Carbonate (Oscal) 500 mg PO BID [facility] Last Admin: 09/30/18 09:52 Dose: 500 mg Cinacalcet (Sensipar) 60 mg PO BRKDIN [facility] Last Admin: 09/30/18 09:51 Dose: 60 mg Dextrose (Dextrose 50% Inj) 0 ml IV STAT PRN; Protocol PRN Reason: Hypoglycemia Protocol Guaifenesin/Dextromethorphan (Robitussin Dm) 5 ml PO Q4H PRN PRN Reason: Cough Last Admin: 09/29/18 04:45 Dose: 5 ml Guaifenesin/Dextromethorphan (Mucinex-Dm 600-30 Mg) 1 tab PO BID [facility] Last Admin: 09/30/18 09:51 Dose: 1 tab Hydralazine HCl (Apresoline) 50 mg PO TID [facility] Last Admin: 09/30/18 14:34 Dose: Not Given Dextrose (Dextrose 5% In Water 1000 Ml) 1,000 mls @ 0 mls/hr IV .Q0M PRN; Protocol PRN Reason: Hypoglycemia Protocol Cefepime HCl (Maxipime 1gm) 1 gm in 100 mls @ 100 mls/hr IVPB Q24H [facility]; Protocol Stop: 10/06/18 13:01 Last Admin: 09/30/18 14:35 Dose: 100 mls/hr Insulin Human Lispro (Humalog Med) 0 units SC ACHS [facility]; Protocol Last Admin: 09/30/18 16:44 Dose: Not Given Losartan Potassium (Cozaar) 100 mg PO DAILY [facility] Last Admin: 09/30/18 09:52 Dose: 100 mg Oxycodone/Acetaminophen (Percocet 5/325 Mg Tab) 1 tab PO Q6H PRN PRN Reason: Pain, moderate (4-7) Stop: 10/01/18 15:19 Oxycodone/Acetaminophen (Percocet 5/325 Mg Tab) 2 tab PO Q6H PRN PRN Reason: Pain, severe (8-10) Stop: 10/01/18 15:19 Pantoprazole Sodium (Protonix Ec Tab) 40 mg PO ACB [facility] Last Admin: 09/30/18 09:51 Dose: 40 mg Sevelamer HCl (Renagel) 3,200 mg PO AC [facility] Last Admin: 09/30/18 14:36 Dose: 3,200 mg - Labs Labs: 09/29/18 12:10 09/29/18 12:10 PT 11.3 SECONDS (9.4-12.5) 09/26/18 18:00 INR 0.98 09/26/18 18:00 APTT 32.7 Seconds (25.1-36.5) 09/26/18 18:00 Attending/Attestation - Attestation I have personally seen and examined this patient.: Yes I have fully participated in the care of the patient.: Yes I have reviewed all pertinent clinical information, including history, physical exam and plan: Yes Notes (Text): 09/30/18 17:03 Attending note; Patient seen and examined with resident. Patient is alert and awake. Status post toe amputation. Has drain in place. Still has significant serosanguineous drainage. Patient is a 48-year-old male with past medical history significant for hypertension, type 2 diabetes, nephrotic syndrome, coronary artery disease, NSTEMI, and end-stage renal disease on dialysis Wednesday//Wednesday the presented to the emergency room with foul smell from right foot fifth digit ulceration. 1. Right foot/ 5th toe osteomyelitis; s/p amputation of 5th toe right foot. drain in place. still with Serosanguineous discharge. Pathology pending. Dressing in place. Podiatry evaluation appreciated. Case discussed with ID in detail. Continue IV Maxipime. Wound culture is positive for Proteus mirabilis. 2. End-stage renal disease on dialysis. Continue dialysis Wednesday//Wednesday. Nephrology evaluation appreciated. Next dialysis is tomorrow. 3. Type 2 diabetes. Continue insulin sliding scale. Continue to monitor Accu- Cheks. 4. Hypertension. Continue Cozaar. Hydralazine and Norvasc. Monitor closely with podiatry. Pending pathology from toe amputation to determine the need for long-term antibi otics. The diagnosis, follow-up plan discussed with patient in detail. Upon discharge the patient will follow up with PMD Dr. House and podiatry Dr. Baig.
--- NOTE | 2018-09-30 16:56 | CP.PCM.PN ---
<Carroll Santo - Last Filed: 09/30/18 16:53> Subjective - Date & Time of Evaluation Date of Evaluation: 09/30/18 Time of Evaluation: 11:00 - Subjective Subjective: ID Progress Note Patient seen and examined at bedside. Patient complains of mild foot pain. Denies chest pain, shortness of breath, fever, chills. Objective - Vital Signs/Intake and Output Vital Signs (last 24 hours): Temp Pulse Resp BP Pulse Ox 98.4 F 87 18 82/46 L 100 09/30/18 06:00 09/30/18 06:00 09/30/18 06:00 09/30/18 14:34 09/30/18 06:00 Intake and Output: 09/30/18 09/30/18 06:59 18:59 Intake Total 1200 Balance 1200 - Medications Medications: Current Medications Acetaminophen (Tylenol 325mg Tab) 650 mg PO Q6H PRN PRN Reason: Pain, Mild (1-3) Amlodipine Besylate (Norvasc) 10 mg PO DAILY [facility] Last Admin: 09/30/18 09:54 Dose: 10 mg Benzocaine/Menthol (Cepacol Sore Throat) 1 gatito MT Q2H PRN PRN Reason: Sore Throat Last Admin: 09/29/18 04:45 Dose: 1 gatito Calcium Carbonate (Oscal) 500 mg PO BID [facility] Last Admin: 09/30/18 09:52 Dose: 500 mg Cinacalcet (Sensipar) 60 mg PO BRKDIN [facility] Last Admin: 09/30/18 09:51 Dose: 60 mg Dextrose (Dextrose 50% Inj) 0 ml IV STAT PRN; Protocol PRN Reason: Hypoglycemia Protocol Guaifenesin/Dextromethorphan (Robitussin Dm) 5 ml PO Q4H PRN PRN Reason: Cough Last Admin: 09/29/18 04:45 Dose: 5 ml Guaifenesin/Dextromethorphan (Mucinex-Dm 600-30 Mg) 1 tab PO BID [facility] Last Admin: 09/30/18 09:51 Dose: 1 tab Hydralazine HCl (Apresoline) 50 mg PO TID [facility] Last Admin: 09/30/18 14:34 Dose: Not Given Dextrose (Dextrose 5% In Water 1000 Ml) 1,000 mls @ 0 mls/hr IV .Q0M PRN; Protocol PRN Reason: Hypoglycemia Protocol Cefepime HCl (Maxipime 1gm) 1 gm in 100 mls @ 100 mls/hr IVPB Q24H [facility]; Protocol Stop: 10/06/18 13:01 Last Admin: 09/30/18 14:35 Dose: 100 mls/hr Insulin Human Lispro (Humalog Med) 0 units SC ACHS [facility]; Protocol Last Admin: 09/30/18 16:44 Dose: Not Given Losartan Potassium (Cozaar) 100 mg PO DAILY [facility] Last Admin: 09/30/18 09:52 Dose: 100 mg Oxycodone/Acetaminophen (Percocet 5/325 Mg Tab) 1 tab PO Q6H PRN PRN Reason: Pain, moderate (4-7) Stop: 10/01/18 15:19 Oxycodone/Acetaminophen (Percocet 5/325 Mg Tab) 2 tab PO Q6H PRN PRN Reason: Pain, severe (8-10) Stop: 10/01/18 15:19 Pantoprazole Sodium (Protonix Ec Tab) 40 mg PO ACB [facility] Last Admin: 09/30/18 09:51 Dose: 40 mg Sevelamer HCl (Renagel) 3,200 mg PO AC [facility] Last Admin: 09/30/18 14:36 Dose: 3,200 mg - Labs Labs: 09/29/18 12:10 09/29/18 12:10 PT 11.3 SECONDS (9.4-12.5) 09/26/18 18:00 INR 0.98 09/26/18 18:00 APTT 32.7 Seconds (25.1-36.5) 09/26/18 18:00 - Constitutional Appears: Non-toxic, No Acute Distress - Head Exam Head Exam: ATRAUMATIC, NORMAL INSPECTION, NORMOCEPHALIC - ENT Exam ENT Exam: Mucous Membranes Moist - Respiratory Exam Respiratory Exam: Clear to Ausculation Bilateral, NORMAL BREATHING PATTERN - Cardiovascular Exam Cardiovascular Exam: RRR, +S1, +S2 - GI/Abdominal Exam GI & Abdominal Exam: Soft, Normal Bowel Sounds. absent: Tenderness - Extremities Exam Additional comments: Foot bandaged. Drainage noted - Neurological Exam Neurological Exam: Alert, Awake, Oriented x3 - Psychiatric Exam Psychiatric exam: Normal Affect, Normal Mood - Skin Skin Exam: Intact, Normal Color, Warm Assessment and Plan - Assessment and Plan (Free Text) Plan: Osteomyelitis of the right 5th toe Hx of Nephrotic syndrome Hx of ESRD on hemodialysis Hx of NSTEMI Hx of DM2 Hx of HTN HX of HLD Plan Patient currently on Cefepime Initial foot cultures show Proteus Awaiting pathology from OR Blood cultures negative Continue current medical management Gal, PGY-3 <Carlos Logan S - Last Filed: 09/30/18 23:14> Objective - Vital Signs/Intake and Output Vital Signs (last 24 hours): Temp Pulse Resp BP Pulse Ox 98.5 F 81 20 88/64 L 100 09/30/18 14:00 09/30/18 14:00 09/30/18 14:00 09/30/18 17:04 09/30/18 14:00 Intake and Output: 09/30/18 10/01/18 18:59 06:59 Intake Total 480 Output Total 0 Balance 480 - Medications Medications: Current Medications Acetaminophen (Tylenol 325mg Tab) 650 mg PO Q6H PRN PRN Reason: Pain, Mild (1-3) Amlodipine Besylate (Norvasc) 10 mg PO DAILY [facility] Last Admin: 09/30/18 09:54 Dose: 10 mg Benzocaine/Menthol (Cepacol Sore Throat) 1 gatito MT Q2H PRN PRN Reason: Sore Throat Last Admin: 09/29/18 04:45 Dose: 1 gatito Calcium Carbonate (Oscal) 500 mg PO BID [facility] Last Admin: 09/30/18 17:10 Dose: 500 mg Cinacalcet (Sensipar) 60 mg PO BRKDIN [facility] Last Admin: 09/30/18 17:10 Dose: 60 mg Dextrose (Dextrose 50% Inj) 0 ml IV STAT PRN; Protocol PRN Reason: Hypoglycemia Protocol Guaifenesin/Dextromethorphan (Robitussin Dm) 5 ml PO Q4H PRN PRN Reason: Cough Last Admin: 09/29/18 04:45 Dose: 5 ml Guaifenesin/Dextromethorphan (Mucinex-Dm 600-30 Mg) 1 tab PO BID [facility] Last Admin: 09/30/18 17:10 Dose: 1 tab Hydralazine HCl (Apresoline) 50 mg PO TID [facility] Last Admin: 09/30/18 17:04 Dose: Not Given Dextrose (Dextrose 5% In Water 1000 Ml) 1,000 mls @ 0 mls/hr IV .Q0M PRN; Protocol PRN Reason: Hypoglycemia Protocol Cefepime HCl (Maxipime 1gm) 1 gm in 100 mls @ 100 mls/hr IVPB Q24H [facility]; Protocol Stop: 10/06/18 13:01 Last Admin: 09/30/18 14:35 Dose: 100 mls/hr Insulin Human Lispro (Humalog Med) 0 units SC ACHS [facility]; Protocol Last Admin: 09/30/18 22:04 Dose: Not Given Losartan Potassium (Cozaar) 100 mg PO DAILY [facility] Last Admin: 09/30/18 09:52 Dose: 100 mg Oxycodone/Acetaminophen (Percocet 5/325 Mg Tab) 1 tab PO Q6H PRN PRN Reason: Pain, moderate (4-7) Stop: 10/01/18 15:19 Oxycodone/Acetaminophen (Percocet 5/325 Mg Tab) 2 tab PO Q6H PRN PRN Reason: Pain, severe (8-10) Stop: 10/01/18 15:19 Pantoprazole Sodium (Protonix Ec Tab) 40 mg PO ACB [facility] Last Admin: 09/30/18 09:51 Dose: 40 mg Sevelamer HCl (Renagel) 3,200 mg PO AC [facility] Last Admin: 09/30/18 17:10 Dose: 3,200 mg - Labs Labs: 09/29/18 12:10 09/29/18 12:10 PT 11.3 SECONDS (9.4-12.5) 09/26/18 18:00 INR 0.98 09/26/18 18:00 APTT 32.7 Seconds (25.1-36.5) 09/26/18 18:00 Assessment and Plan - Assessment and Plan (Free Text) Plan: Infectious diseases Attending Physician Attestation Patient seen and examined, discussed with biomedical equipment specialist. I have reviewed the patient's history of present illness, past medical, social, personal and family histories, pertinent physical exam findings, course so far in this hospital admission, pertinent laboratory and imaging results. I agree with the above findings, assessment and plan. In addition, continue Cefepime for patient with right 5th toe osteomyelitis S/P amputation. OR cx showing PRoteus but still awaiting OR pathology to determine duration of therapy.
[2018-10-01] MEDS: Pantoprazole 40 mg EC Tab PO SCH (08:00)
[2018-10-01] MEDS: Insulin Lispro (humaLOG) MEDIUM Coverage SC SCH ×4 (08:00→22:02)
[2018-10-01] MEDS ORDERED: Darbepoetin Alfa 40 mcg/ml Inj IVP ONE (08:26)
[2018-10-01] MEDS ORDERED: Doxercalciferol 4 mcg/2 ml Inj IV ONE (08:26)
--- NOTE | 2018-10-01 09:01 | CP.PCM.PN ---
Subjective - Date & Time of Evaluation Date of Evaluation: 10/01/18 Time of Evaluation: 07:00 - Subjective Subjective: Awake, alert, no distress Reason for consultation and follow up: Cardiac evaluation for pre-op clearance for foot surgery,post op follow up, status post right foot surgery, history of renal failure,diabetes mellitus,hypertension,hyperlipidemia, coronary artery disease Seen and examined by me and Dr. Dawn Objective - Vital Signs/Intake and Output Vital Signs (last 24 hours): Temp Pulse Resp BP Pulse Ox 98.5 F 84 20 142/88 98 09/30/18 22:00 09/30/18 22:00 09/30/18 22:00 09/30/18 22:00 09/30/18 22:00 Intake and Output: 10/01/18 10/01/18 06:59 18:59 Intake Total 840 Output Total 0 Balance 840 - Medications Medications: Current Medications Acetaminophen (Tylenol 325mg Tab) 650 mg PO Q6H PRN PRN Reason: Pain, Mild (1-3) Amlodipine Besylate (Norvasc) 10 mg PO DAILY [facility] Last Admin: 09/30/18 09:54 Dose: 10 mg Benzocaine/Menthol (Cepacol Sore Throat) 1 gatito MT Q2H PRN PRN Reason: Sore Throat Last Admin: 09/29/18 04:45 Dose: 1 gatito Calcium Carbonate (Oscal) 500 mg PO BID [facility] Last Admin: 09/30/18 17:10 Dose: 500 mg Cinacalcet (Sensipar) 60 mg PO BRKDIN [facility] Last Admin: 09/30/18 17:10 Dose: 60 mg Dextrose (Dextrose 50% Inj) 0 ml IV STAT PRN; Protocol PRN Reason: Hypoglycemia Protocol Guaifenesin/Dextromethorphan (Robitussin Dm) 5 ml PO Q4H PRN PRN Reason: Cough Last Admin: 09/29/18 04:45 Dose: 5 ml Guaifenesin/Dextromethorphan (Mucinex-Dm 600-30 Mg) 1 tab PO BID [facility] Last Admin: 09/30/18 17:10 Dose: 1 tab Hydralazine HCl (Apresoline) 50 mg PO TID [facility] Last Admin: 09/30/18 17:04 Dose: Not Given Dextrose (Dextrose 5% In Water 1000 Ml) 1,000 mls @ 0 mls/hr IV .Q0M PRN; Protocol PRN Reason: Hypoglycemia Protocol Cefepime HCl (Maxipime 1gm) 1 gm in 100 mls @ 100 mls/hr IVPB Q24H [facility]; Protocol Stop: 10/06/18 13:01 Last Admin: 09/30/18 14:35 Dose: 100 mls/hr Insulin Human Lispro (Humalog Med) 0 units SC ACHS [facility]; Protocol Last Admin: 10/01/18 08:00 Dose: Not Given Losartan Potassium (Cozaar) 100 mg PO DAILY [facility] Last Admin: 09/30/18 09:52 Dose: 100 mg Oxycodone/Acetaminophen (Percocet 5/325 Mg Tab) 1 tab PO Q6H PRN PRN Reason: Pain, moderate (4-7) Stop: 10/01/18 15:19 Oxycodone/Acetaminophen (Percocet 5/325 Mg Tab) 2 tab PO Q6H PRN PRN Reason: Pain, severe (8-10) Stop: 10/01/18 15:19 Pantoprazole Sodium (Protonix Ec Tab) 40 mg PO ACB [facility] Last Admin: 09/30/18 09:51 Dose: 40 mg Sevelamer HCl (Renagel) 3,200 mg PO AC [facility] Last Admin: 09/30/18 17:10 Dose: 3,200 mg - Labs Labs: 09/29/18 12:10 09/29/18 12:10 PT 11.3 SECONDS (9.4-12.5) 09/26/18 18:00 INR 0.98 09/26/18 18:00 APTT 32.7 Seconds (25.1-36.5) 09/26/18 18:00 - Constitutional Appears: Non-toxic, No Acute Distress - Head Exam Head Exam: NORMAL INSPECTION, NORMOCEPHALIC - Eye Exam Eye Exam: Normal appearance Pupil Exam: NORMAL ACCOMODATION - ENT Exam ENT Exam: Mucous Membranes Moist, Normal Exam - Neck Exam Neck Exam: Full ROM, Normal Inspection - Respiratory Exam Respiratory Exam: Decreased Breath Sounds, NORMAL BREATHING PATTERN - Cardiovascular Exam Cardiovascular Exam: +S1, +S2 - GI/Abdominal Exam GI & Abdominal Exam: Soft, Normal Bowel Sounds - Extremities Exam Additional comments: right foot dressing - Neurological Exam Neurological Exam: Alert, Awake, Oriented x3 - Psychiatric Exam Psychiatric exam: Normal Affect, Normal Mood - Skin Skin Exam: Dry, Normal Color, Warm Assessment and Plan - Assessment and Plan (Free Text) Assessment: A 48 year old obese male who came in for right fifth toe wound. History of renal failure,diabetes mellitus,hypertension,hyperlipidemia, coronary artery disease, non-STEMI. consult was called for cardiac clearance for surgery. Moderate risk for surgery. status post right fifth digit and metatarsal amputation POD#3. Followed up by Podiatry. Adjusted medications for uncontrolled hypertension. Plan: Status post right foot surgery POD#3 Toe wound culture positive for Proteus Mirabilis On contact isolation Heart rate controlled Started Apresoline for uncontrolled hypertension but yesterday SBP 70's and 80's Will decrease Apresoline to BID On Norvasc 10 mg daily,Apresoline 50 mg TID, Cozaar 100 mg daily Continue current medications Continue current treatment Pain management Continue IV antibiotics per ID Will follow up Plan and treatment discussed with Dr. Dawn
[2018-10-01 09:20] LABS: ALB/GLOB RATIO 1.2 (1.1-1.8); ALBUMIN 4.6 g/dL (3.0-4.8); CALCIUM 8.2 mg/dL (8.4-10.5)
[2018-10-01 09:24] LABS: BASO # 0.02 K/mm3 (0.0-2.0); BASO % 0.3 % (0.0-3.0); EOS # 0.4 (0.0-0.7); EOS % 5.8 % (1.5-5.0); GRAN # 3.78 (1.4-6.5); GRAN % 58.8 % (50.0-68.0); HEMOGLOBIN 10.1 g/dL (14.0-18.0); LYMPH # 1.9 (1.2-3.4); LYMPH % 28.9 % (22.0-35.0); MEAN CELL VOLUME 88.9 fl (80.0-105.0); MEAN CORPUSCULAR HGB CONC 31.5 g/dl (31.0-37.0); MEAN PLATELET VOLUME 10.7 fl (7.0-11.0); MONO # 0.4 (0.1-0.6); MONO % 6.2 % (1.0-6.0); RBC 3.61 10^6/uL (3.5-6.1); RED CELL DISTRIBUTION WIDTH 14.7 % (11.5-14.5); WHITE BLOOD COUNT 6.4 10^3/uL (4.5-11.0)
[2018-10-01] MEDS: guaiFENesin-DM 600-30 mg ER Tab PO SCH ×2 (10:00→17:11)
--- NOTE | 2018-10-01 11:08 | CP.PCM.PN ---
<Cheng Mccartney - Last Filed: 10/01/18 11:15> Subjective - Date & Time of Evaluation Date of Evaluation: 10/01/18 Time of Evaluation: 11:08 - Subjective Subjective: PGY1 Progress Note for Dr. Eisenberg Patient was seen and evaluated at bedside this morning during dialysis treatment. Patient denies chest pain, headache, nausea, vomiting, SOB, fever, chills, and/or foot pain. Patient tolerating dialysis without issue. Patient otherwise has no complaints. Objective - Vital Signs/Intake and Output Vital Signs (last 24 hours): Temp Pulse Resp BP Pulse Ox 98.2 F 77 18 142/82 97 10/01/18 07:00 10/01/18 07:00 10/01/18 07:00 10/01/18 07:00 10/01/18 07:00 Intake and Output: 10/01/18 10/01/18 06:59 18:59 Intake Total 840 Output Total 0 Balance 840 - Medications Medications: Current Medications Acetaminophen (Tylenol 325mg Tab) 650 mg PO Q6H PRN PRN Reason: Pain, Mild (1-3) Amlodipine Besylate (Norvasc) 10 mg PO DAILY [facility] Last Admin: 09/30/18 09:54 Dose: 10 mg Benzocaine/Menthol (Cepacol Sore Throat) 1 gatito MT Q2H PRN PRN Reason: Sore Throat Last Admin: 09/29/18 04:45 Dose: 1 gatito Calcium Carbonate (Oscal) 500 mg PO BID [facility] Last Admin: 09/30/18 17:10 Dose: 500 mg Cinacalcet (Sensipar) 60 mg PO BRKDIN [facility] Last Admin: 09/30/18 17:10 Dose: 60 mg Dextrose (Dextrose 50% Inj) 0 ml IV STAT PRN; Protocol PRN Reason: Hypoglycemia Protocol Guaifenesin/Dextromethorphan (Robitussin Dm) 5 ml PO Q4H PRN PRN Reason: Cough Last Admin: 09/29/18 04:45 Dose: 5 ml Guaifenesin/Dextromethorphan (Mucinex-Dm 600-30 Mg) 1 tab PO BID [facility] Last Admin: 09/30/18 17:10 Dose: 1 tab Hydralazine HCl (Apresoline) 50 mg PO Q12 [facility] Dextrose (Dextrose 5% In Water 1000 Ml) 1,000 mls @ 0 mls/hr IV .Q0M PRN; Protocol PRN Reason: Hypoglycemia Protocol Cefepime HCl (Maxipime 1gm) 1 gm in 100 mls @ 100 mls/hr IVPB Q24H [facility]; Protocol Stop: 10/06/18 13:01 Last Admin: 09/30/18 14:35 Dose: 100 mls/hr Insulin Human Lispro (Humalog Med) 0 units SC ACHS [facility]; Protocol Last Admin: 10/01/18 08:00 Dose: Not Given Losartan Potassium (Cozaar) 100 mg PO DAILY [facility] Last Admin: 09/30/18 09:52 Dose: 100 mg Pantoprazole Sodium (Protonix Ec Tab) 40 mg PO ACB [facility] Last Admin: 09/30/18 09:51 Dose: 40 mg Sevelamer HCl (Renagel) 3,200 mg PO AC [facility] Last Admin: 09/30/18 17:10 Dose: 3,200 mg - Labs Labs: 10/01/18 08:45 10/01/18 08:45 PT 11.3 SECONDS (9.4-12.5) 09/26/18 18:00 INR 0.98 09/26/18 18:00 APTT 32.7 Seconds (25.1-36.5) 09/26/18 18:00 - Additional Findings Additional findings: - Constitutional Appears: No Acute Distress - Head Exam Head Exam: ATRAUMATIC, NORMOCEPHALIC - Eye Exam Eye Exam: EOMI - ENT Exam ENT Exam: Mucous Membranes Moist - Neck Exam Neck Exam: Full ROM - Respiratory Exam Respiratory Exam: Clear to Ausculation Bilateral, NORMAL BREATHING PATTERN. absent: Accessory Muscle Use, Respiratory Distress - Cardiovascular Exam Cardiovascular Exam: RRR, +S1, +S2. absent: Diastolic murmur, Murmur - GI/Abdominal Exam GI & Abdominal Exam: Soft, Normal Bowel Sounds - Extremities Exam Extremities Exam: Full ROM Additional comments: right foot bandage, clean, dry, and intact - Neurological Exam Neurological Exam: Alert, Awake, Oriented x3 - Psychiatric Exam Psychiatric exam: Normal Affect, Normal Mood - Skin Skin Exam: Dry, Intact, Normal Color, Warm Assessment and Plan - Assessment and Plan (Free Text) Assessment: Mr. Edwards is a 48-year-old male with a PMH of HTN, IDDM, nephrotic syndrome, NSTEMI, ESRD on dialysis Tue/Thurs/Sat, diabetic neuropathy, HLD, and a wound on his 5th digit of his right foot. Osteomyelitis of right 5th digit - Blood culture NGTD - MRI from August 2018: marrow edema in the 5th toe as well as dislocation of the PIP joint. Findings are suspicious for osteomyelitis - As per Dr. Baig, patient failed outpatient treatment - OR with podiatry, amputation of 5th toe right foot, healing well - Dressing replaced today by Podiatry; dressing dry, clean and intact. - No signs of infection, will continue to monitor - Drain removed - Wound culture 09/28/18 proteus mirabilis - Dr Wilkinson consulted for cardiac clearance for toe amputation surgery - ID consulted (Dr. Mtz) will check path and OR biopsy results after path results for amputation - Per ID, Continue Maxipime - Nephro consulted (Dr. Davis), recommends to continue sensipar, renegal and calcium carbonate CKD Stage V on Dialysis - BUN 71, Cr 13.2 - Dialysis performed today - Continue dialysis Tue/Thrus/ Sat - Renal diet - Nephro consulted (Dr. Davis), recommends to continue sensipar, renegal and calcium carbonate DM Type II - HgbA1c 6.6 - SSI - Accucheck - Monitor - Hypoglycemic protocol - Renal diet HTN - Continue HCTZ 25 mg daily - Continue Metoprolol 25 mg daily - Continue Hydralazine 50 PO BID Prophylaxis - Continue protonix - Continue SCD Patient seen and case discussed in detail with Dr Faina Mccartney PGY1 <Gennaro Eisenberg - Last Filed: 10/01/18 14:00> Objective - Vital Signs/Intake and Output Vital Signs (last 24 hours): Temp Pulse Resp BP Pulse Ox 98.2 F 77 18 142/82 97 10/01/18 07:00 10/01/18 07:00 10/01/18 07:00 10/01/18 07:00 10/01/18 07:00 Intake and Output: 10/01/18 10/01/18 06:59 18:59 Intake Total 840 Output Total 0 Balance 840 - Medications Medications: Current Medications Acetaminophen (Tylenol 325mg Tab) 650 mg PO Q6H PRN PRN Reason: Pain, Mild (1-3) Amlodipine Besylate (Norvasc) 10 mg PO DAILY [facility] Last Admin: 09/30/18 09:54 Dose: 10 mg Benzocaine/Menthol (Cepacol Sore Throat) 1 gatito MT Q2H PRN PRN Reason: Sore Throat Last Admin: 09/29/18 04:45 Dose: 1 gatito Calcium Carbonate (Oscal) 500 mg PO BID [facility] Last Admin: 10/01/18 10:00 Dose: Not Given Cinacalcet (Sensipar) 60 mg PO BRKDIN [facility] Last Admin: 10/01/18 08:00 Dose: Not Given Dextrose (Dextrose 50% Inj) 0 ml IV STAT PRN; Protocol PRN Reason: Hypoglycemia Protocol Guaifenesin/Dextromethorphan (Robitussin Dm) 5 ml PO Q4H PRN PRN Reason: Cough Last Admin: 09/29/18 04:45 Dose: 5 ml Guaifenesin/Dextromethorphan (Mucinex-Dm 600-30 Mg) 1 tab PO BID [facility] Last Admin: 10/01/18 10:00 Dose: Not Given Hydralazine HCl (Apresoline) 50 mg PO Q12 [facility] Last Admin: 10/01/18 10:00 Dose: Not Given Dextrose (Dextrose 5% In Water 1000 Ml) 1,000 mls @ 0 mls/hr IV .Q0M PRN; Protocol PRN Reason: Hypoglycemia Protocol Cefepime HCl (Maxipime 1gm) 1 gm in 100 mls @ 100 mls/hr IVPB Q24H [facility]; Protocol Stop: 10/06/18 13:01 Last Admin: 10/01/18 13:16 Dose: 100 mls/hr Insulin Human Lispro (Humalog Med) 0 units SC ACHS [facility]; Protocol Last Admin: 10/01/18 12:47 Dose: Not Given Losartan Potassium (Cozaar) 100 mg PO DAILY [facility] Last Admin: 10/01/18 10:00 Dose: Not Given Pantoprazole Sodium (Protonix Ec Tab) 40 mg PO ACB [facility] Last Admin: 10/01/18 08:00 Dose: Not Given Sevelamer HCl (Renagel) 3,200 mg PO AC [facility] Last Admin: 10/01/18 13:16 Dose: 3,200 mg - Labs Labs: 10/01/18 08:45 10/01/18 08:45 PT 11.3 SECONDS (9.4-12.5) 09/26/18 18:00 INR 0.98 09/26/18 18:00 APTT 32.7 Seconds (25.1-36.5) 09/26/18 18:00 Attending/Attestation - Attestation I have personally seen and examined this patient.: Yes I have fully participated in the care of the patient.: Yes I have reviewed all pertinent clinical information, including history, physical exam and plan: Yes Notes (Text): 10/01/18 13:58 Attending note; Patient seen and examined with resident in dialysis unit. Denies any complaints. Patient is alert and awake. Status post toe amputation. drain fell off. Dressing done by podiatry. No active bleeding/discharge noted. Patient is a 48-year-old male with past medical history significant for hy pertension, type 2 diabetes, nephrotic syndrome, coronary artery disease, NSTEMI, and end-stage renal disease on dialysis Wednesday//Wednesday the presented to the emergency room with foul smell from right foot fifth digit ulceration. 1. Right foot/ 5th toe osteomyelitis; s/p amputation of 5th toe right foot. still with Serosanguineous discharge. Pathology pending. Dressing in place. Podiatry evaluation appreciated. Case discussed with ID in detail. Continue IV Maxipime. Wound culture is positive for Proteus mirabilis. 2. End-stage renal disease on dialysis. Continue dialysis Wednesday//Wednesday. Nephrology evaluation appreciated. currently getting dialysis. 3. Type 2 diabetes. Continue insulin sliding scale. Continue to monitor Accu- Cheks. 4. Hypertension. Continue Cozaar. Hydralazine and Norvasc. Monitor closely with podiatry. Pending pathology from toe amputation to determine the need for long-term antibiotics. Case discussed with pathologist yesterday. We will get preliminary diagnosis of bone biopsy results on Wednesday. Possible discharge on Wednesday after biopsy results. Continue IV Maxipime until biopsy results. The diagnosis, follow-up plan discussed with patient in detail. Upon discharge the patient will follow up with PMD Dr. House and podiatry Dr. Baig. 10/01/18 13:58
--- NOTE | 2018-10-01 11:48 | PN ---
DATE: 10/01/2018 SUBJECTIVE: This 48-year-old male status post 3 days fifth ray resection, seen at bedside for consultation, evaluation and management. The patient states he has some discomfort in his foot but no pain. He denies experiencing fever, chills, nausea or vomiting. He states that when he went to weigh himself today before dialysis, the Boyd drain popped out. PHYSICAL EXAMINATION: VITAL SIGNS: Revealed temperature of 98.2, pulse rate of 77, blood pressure of 142/82 and respiratory rate 18. Palpable pedal pulses noted bilaterally. Temperature gradient is within normal limits. Capillary filling time is within normal limits x9. There is noted to be a surgical incision on the dorsal aspect of the right lateral foot that extends over the fifth metatarsal. All sutures are intact, well coapted, no signs of dehiscence. There is a small opening from the Boyd drain that is cleared of any active drainage at this time. There is no purulence emanating from the Yuri drain portal. Overall, surgical site continues to decrease in edema and erythema. There are no clinical signs of infection noted. LABORATORY FINDINGS: Reveal white count of 6.4, hemoglobin of 10.1, hematocrit of 32.1 and platelet count of 174. His last ESR was 50. Cultures taken in the operating room revealed no anaerobic growth and Proteus mirabilis deep tissue culture. ASSESSMENT: A 48-year-old male 3 days status post right fifth ray resection. PLAN: The patient was seen and evaluated in dialysis. The chart, labs and vitals were all reviewed. Portal ventured for the Boyd drain was flushed with three vials of 0.9 normal sterile saline and application of calcium alginate, sterile 4x4s, sterile abdominal pads, sterile Kerlix and Tyrone wrap was applied. The patient was told that he should use wedge shoe when weightbearing as tolerated. The patient will be seen and followed daily while in-house. Jair Colon DPM
[2018-10-01] MEDS: Cefepime 1gm in NS 100ml 1 GM/100 ML BAG IVPB SCH (13:16)
[2018-10-01] MEDS ORDERED: Oxycodone/Acetaminophen 5/325 mg Tab PO PRN (16:46)
--- NOTE | 2018-10-01 19:24 | PN ---
DATE: 10/01/2018 SUBJECTIVE: The patient is in bed, in no acute distress, nontoxic. PHYSICAL EXAMINATION: GENERAL: The patient is seen earlier today. VITAL SIGNS: With a temperature of 98, blood pressure is 130/80, respiratory rate of 16. HEENT: Unremarkable. NECK: Supple. LUNGS: Have decreased breath sounds. HEART: Normal S1 and S2. ABDOMEN: Soft, nontender. No organomegaly. No rebound. No guarding. LABORATORY EXAMINATION: Reveals a white count of 6.4, hemoglobin of 10. Chemistries reveal a BUN of 71, creatinine is 13. Microbiology reveals the stool culture has Proteus mirabilis, pansensitive. Blood cultures are negative. ASSESSMENT AND PLAN: This is a 48-year-old male with osteomyelitis of right 5th toe; history of nephrotic syndrome; end-stage renal disease, on hemodialysis; and non-ST elevation myocardial infarction with Proteus in the culture, on cefepime. Review of orders reveal the pathology is pending, cefepime is active. We will check on the pathology report. Junior Mtz MD
--- NOTE | 2018-10-01 22:31 | PN ---
DATE: 10/01/2018 ADDITION PROGRESS NOTE LOCATION: The patient is in room 578, bed 2. The patient's detailed note has been already written by Anjana Villagran. This is an additional note to that. The patient is a known case of advanced renal failure, on dialysis. The patient is examined. The patient is on dialysis today. He is lying flat in bed without chest pain, shortness of breath, or palpitation. He is status post fifth toe amputation due to nonhealing osteomyelitis. The patient has a history of non-STEMI in the past, diabetes, neuropathy, hyperlipidemia, hypertension, obesity, renal failure, on dialysis. The patient from cardiac point of view continued to be stable. Plan will be that we will continue present therapy and continue dialysis as per Nephrology, and we will continue to follow closely. Gail Dawn MD
--- NOTE | 2018-10-02 07:11 | CP.PCM.PN ---
Subjective - Date & Time of Evaluation Date of Evaluation: 10/02/18 Time of Evaluation: 06:50 - Subjective Subjective: Sleeping but easily awaken, no distress Reason for consultation and follow up: Cardiac evaluation for pre-op clearance for foot surgery,post op follow up, status post right 5th toe amputation with metatarsal head surgery, history of renal failure,diabetes mellitus,hypertension, hyperlipidemia, coronary artery disease Seen and examined by me and Dr. Dawn Objective - Vital Signs/Intake and Output Vital Signs (last 24 hours): Temp Pulse Resp BP Pulse Ox 98.3 F 79 18 116/61 97 10/01/18 23:13 10/01/18 23:13 10/01/18 23:13 10/01/18 23:13 10/01/18 23:13 - Medications Medications: Current Medications Acetaminophen (Tylenol 325mg Tab) 650 mg PO Q6H PRN PRN Reason: Pain, Mild (1-3) Amlodipine Besylate (Norvasc) 10 mg PO DAILY [facility] Last Admin: 09/30/18 09:54 Dose: 10 mg Benzocaine/Menthol (Cepacol Sore Throat) 1 gatito MT Q2H PRN PRN Reason: Sore Throat Last Admin: 09/29/18 04:45 Dose: 1 gatito Calcium Carbonate (Oscal) 500 mg PO BID [facility] Last Admin: 10/01/18 17:13 Dose: 500 mg Cinacalcet (Sensipar) 60 mg PO BRKDIN [facility] Last Admin: 10/01/18 17:11 Dose: 60 mg Dextrose (Dextrose 50% Inj) 0 ml IV STAT PRN; Protocol PRN Reason: Hypoglycemia Protocol Guaifenesin/Dextromethorphan (Robitussin Dm) 5 ml PO Q4H PRN PRN Reason: Cough Last Admin: 09/29/18 04:45 Dose: 5 ml Guaifenesin/Dextromethorphan (Mucinex-Dm 600-30 Mg) 1 tab PO BID [facility] Last Admin: 10/01/18 17:11 Dose: 1 tab Hydralazine HCl (Apresoline) 50 mg PO Q12 [facility] Last Admin: 10/01/18 10:00 Dose: Not Given Dextrose (Dextrose 5% In Water 1000 Ml) 1,000 mls @ 0 mls/hr IV .Q0M PRN; Protocol PRN Reason: Hypoglycemia Protocol Cefepime HCl (Maxipime 1gm) 1 gm in 100 mls @ 100 mls/hr IVPB Q24H [facility]; Protocol Stop: 10/06/18 13:01 Last Admin: 10/01/18 13:16 Dose: 100 mls/hr Insulin Human Lispro (Humalog Med) 0 units SC ACHS [facility]; Protocol Last Admin: 10/01/18 22:02 Dose: Not Given Losartan Potassium (Cozaar) 100 mg PO DAILY [facility] Last Admin: 10/01/18 17:10 Dose: 100 mg Oxycodone/Acetaminophen (Percocet 5/325 Mg Tab) 1 tab PO Q6H PRN PRN Reason: Pain, severe (8-10) Stop: 10/04/18 16:47 Last Admin: 10/01/18 17:13 Dose: 1 tab Pantoprazole Sodium (Protonix Ec Tab) 40 mg PO ACB [facility] Last Admin: 10/01/18 08:00 Dose: Not Given Sevelamer HCl (Renagel) 3,200 mg PO AC [facility] Last Admin: 10/01/18 17:10 Dose: 3,200 mg - Labs Labs: 10/01/18 08:45 10/01/18 08:45 PT 11.3 SECONDS (9.4-12.5) 09/26/18 18:00 INR 0.98 09/26/18 18:00 APTT 32.7 Seconds (25.1-36.5) 09/26/18 18:00 - Constitutional Appears: Non-toxic, No Acute Distress - Head Exam Head Exam: NORMAL INSPECTION, NORMOCEPHALIC - Eye Exam Eye Exam: Normal appearance Pupil Exam: NORMAL ACCOMODATION - ENT Exam ENT Exam: Mucous Membranes Moist, Normal Exam - Neck Exam Neck Exam: Full ROM, Normal Inspection - Respiratory Exam Respiratory Exam: Decreased Breath Sounds, Clear to Ausculation Bilateral, NORMAL BREATHING PATTERN Additional comments: snoring - Cardiovascular Exam Cardiovascular Exam: +S1, +S2 - GI/Abdominal Exam GI & Abdominal Exam: Soft, Normal Bowel Sounds - Extremities Exam Additional comments: right foot dressing - Neurological Exam Neurological Exam: Alert, Awake, Oriented x3 - Psychiatric Exam Psychiatric exam: Normal Affect, Normal Mood - Skin Skin Exam: Dry, Normal Color, Warm Assessment and Plan - Assessment and Plan (Free Text) Assessment: A 48 year old obese male who came in for right fifth toe wound. History of renal failure,diabetes mellitus,hypertension,hyperlipidemia, coronary artery disease, non-STEMI. consult was called for cardiac clearance for surgery. Moderate risk for surgery. status post right fifth digit and metatarsal amputation POD#4. Followed up by Podiatry.Controlled blood pressure. Plan: Status post right fifth digit and metatarsal amputation POD#4 Toe wound culture positive for Proteus Mirabilis On contact isolation Heart rate controlled Controlled blood pressure On Norvasc 10 mg daily,Apresoline 50 mg BID, Cozaar 100 mg daily Continue current medications Continue current treatment Pain management Controlled glucose Lifestyle modification Weight reduction Continue IV antibiotics per ID Will follow up Plan and treatment discussed with Dr. Dawn
[2018-10-02] MEDS: Insulin Lispro (humaLOG) MEDIUM Coverage SC SCH ×4 (08:00→23:30)
--- NOTE | 2018-10-02 10:01 | CP.PCM.PN ---
<Cheng Mccartney - Last Filed: 10/02/18 14:11> Subjective - Date & Time of Evaluation Date of Evaluation: 10/02/18 Time of Evaluation: 10:01 - Subjective Subjective: PGY1 Progress Note for Dr. Eisenberg Patient was seen and evaluated at bedside this morning. No acute events overnight. Patient tolerating diet without issue. Patient denies chest pain, headache, nausea, vomiting, SOB, fever, chills, and/or foot pain. Patient to lerating dialysis without issue, another session scheduled for tomorrow. Objective - Vital Signs/Intake and Output Vital Signs (last 24 hours): Temp Pulse Resp BP Pulse Ox 98.8 F 82 18 130/93 H 95 10/02/18 07:00 10/02/18 07:00 10/02/18 07:00 10/02/18 07:00 10/02/18 07:00 - Medications Medications: Current Medications Acetaminophen (Tylenol 325mg Tab) 650 mg PO Q6H PRN PRN Reason: Pain, Mild (1-3) Amlodipine Besylate (Norvasc) 10 mg PO DAILY [facility] Last Admin: 09/30/18 09:54 Dose: 10 mg Benzocaine/Menthol (Cepacol Sore Throat) 1 gatito MT Q2H PRN PRN Reason: Sore Throat Last Admin: 09/29/18 04:45 Dose: 1 gatito Calcium Carbonate (Oscal) 500 mg PO BID [facility] Last Admin: 10/01/18 17:13 Dose: 500 mg Cinacalcet (Sensipar) 60 mg PO BRKDIN [facility] Last Admin: 10/01/18 17:11 Dose: 60 mg Dextrose (Dextrose 50% Inj) 0 ml IV STAT PRN; Protocol PRN Reason: Hypoglycemia Protocol Guaifenesin/Dextromethorphan (Robitussin Dm) 5 ml PO Q4H PRN PRN Reason: Cough Last Admin: 09/29/18 04:45 Dose: 5 ml Guaifenesin/Dextromethorphan (Mucinex-Dm 600-30 Mg) 1 tab PO BID [facility] Last Admin: 10/01/18 17:11 Dose: 1 tab Hydralazine HCl (Apresoline) 50 mg PO Q12 [facility] Last Admin: 10/01/18 10:00 Dose: Not Given Dextrose (Dextrose 5% In Water 1000 Ml) 1,000 mls @ 0 mls/hr IV .Q0M PRN; Protocol PRN Reason: Hypoglycemia Protocol Cefepime HCl (Maxipime 1gm) 1 gm in 100 mls @ 100 mls/hr IVPB Q24H [facility]; Protocol Stop: 10/06/18 13:01 Last Admin: 10/01/18 13:16 Dose: 100 mls/hr Insulin Human Lispro (Humalog Med) 0 units SC ACHS [facility]; Protocol Last Admin: 10/01/18 22:02 Dose: Not Given Losartan Potassium (Cozaar) 100 mg PO DAILY [facility] Last Admin: 10/01/18 17:10 Dose: 100 mg Oxycodone/Acetaminophen (Percocet 5/325 Mg Tab) 1 tab PO Q6H PRN PRN Reason: Pain, severe (8-10) Stop: 10/04/18 16:47 Last Admin: 10/01/18 17:13 Dose: 1 tab Pantoprazole Sodium (Protonix Ec Tab) 40 mg PO ACB [facility] Last Admin: 10/01/18 08:00 Dose: Not Given Sevelamer HCl (Renagel) 3,200 mg PO AC [facility] Last Admin: 10/01/18 17:10 Dose: 3,200 mg - Labs Labs: 10/01/18 08:45 10/01/18 08:45 PT 11.3 SECONDS (9.4-12.5) 09/26/18 18:00 INR 0.98 09/26/18 18:00 APTT 32.7 Seconds (25.1-36.5) 09/26/18 18:00 - Additional Findings Additional findings: - Constitutional Appears: No Acute Distress - Head Exam Head Exam: ATRAUMATIC, NORMOCEPHALIC - Eye Exam Eye Exam: EOMI - ENT Exam ENT Exam: Mucous Membranes Moist - Neck Exam Neck Exam: Full ROM - Respiratory Exam Respiratory Exam: Clear to Ausculation Bilateral, NORMAL BREATHING PATTERN. absent: Accessory Muscle Use, Respiratory Distress - Cardiovascular Exam Cardiovascular Exam: RRR, +S1, +S2. absent: Diastolic murmur, Murmur - GI/Abdominal Exam GI & Abdominal Exam: Soft, Normal Bowel Sounds - Extremities Exam Extremities Exam: Full ROM Additional comments: right foot bandage, clean, dry, and intact - Neurological Exam Neurological Exam: Alert, Awake, Oriented x3 - Psychiatric Exam Psychiatric exam: Normal Affect, Normal Mood - Skin Skin Exam: Dry, Intact, Normal Color, Warm Assessment and Plan - Assessment and Plan (Free Text) Assessment: Mr. Edwards is a 48-year-old male with a PMH of HTN, IDDM, nephrotic syndrome, NSTEMI, ESRD on dialysis Tue/Thurs/Sat, diabetic neuropathy, HLD, and a wound on his 5th digit of his right foot. Osteomyelitis of right 5th digit - Blood culture NGTD - MRI from August 2018: marrow edema in the 5th toe as well as dislocation of the PIP joint. Findings are suspicious for osteomyelitis - As per Dr. Baig, patient failed outpatient treatment - OR with podiatry, amputation of 5th toe right foot, healing well - Dressing replaced today by Podiatry; dressing dry, clean and intact. - No signs of infection, will continue to monitor - Drain removed - Wound culture 09/28/18 proteus mirabilis - Dr Wilkinson consulted for cardiac clearance for toe amputation surgery - ID consulted (Dr. Mtz) will check path and OR biopsy results after path results for amputation - Per ID, Continue Maxipime (discontinue after 7 days) - Nephro consulted (Dr. Davis), recommends to continue sensipar, renegal and calcium carbonate CKD Stage V on Dialysis - BUN 71, Cr 13.2 (10/01/18) - CMP every other day - Dialysis performed today - Continue dialysis Tue/Thrus/ Sat - Renal diet - Nephro consulted (Dr. Davis), recommends to continue sensipar, renegal and calcium carbonate DM Type II - HgbA1c 6.6 - SSI - Accucheck - Monitor - Hypoglycemic protocol - Renal diet HTN - Continue HCTZ 25 mg daily - Continue Metoprolol 25 mg daily - Continue Hydralazine 50 PO BID Prophylaxis - Continue protonix - Continue SCD Patient seen and case discussed in detail with Dr Faina Mccartney PGY1 <Gennaro Eisenberg - Last Filed: 10/02/18 14:43> Objective - Vital Signs/Intake and Output Vital Signs (last 24 hours): Temp Pulse Resp BP Pulse Ox 98.8 F 82 18 130/93 H 95 10/02/18 07:00 10/02/18 07:00 10/02/18 07:00 10/02/18 07:00 10/02/18 07:00 - Medications Medications: Current Medications Acetaminophen (Tylenol 325mg Tab) 650 mg PO Q6H PRN PRN Reason: Pain, Mild (1-3) Amlodipine Besylate (Norvasc) 10 mg PO DAILY [facility] Last Admin: 09/30/18 09:54 Dose: 10 mg Benzocaine/Menthol (Cepacol Sore Throat) 1 gatito MT Q2H PRN PRN Reason: Sore Throat Last Admin: 09/29/18 04:45 Dose: 1 gatito Calcium Carbonate (Oscal) 500 mg PO BID [facility] Last Admin: 10/02/18 10:20 Dose: 500 mg Cinacalcet (Sensipar) 60 mg PO BRKDIN [facility] Last Admin: 10/02/18 10:19 Dose: 60 mg Dextrose (Dextrose 50% Inj) 0 ml IV STAT PRN; Protocol PRN Reason: Hypoglycemia Protocol Guaifenesin/Dextromethorphan (Robitussin Dm) 5 ml PO Q4H PRN PRN Reason: Cough Last Admin: 09/29/18 04:45 Dose: 5 ml Guaifenesin/Dextromethorphan (Mucinex-Dm 600-30 Mg) 1 tab PO BID [facility] Last Admin: 10/02/18 10:20 Dose: 1 tab Hydralazine HCl (Apresoline) 50 mg PO Q12 [facility] Last Admin: 10/01/18 10:00 Dose: Not Given Dextrose (Dextrose 5% In Water 1000 Ml) 1,000 mls @ 0 mls/hr IV .Q0M PRN; Protocol PRN Reason: Hypoglycemia Protocol Cefepime HCl (Maxipime 1gm) 1 gm in 100 mls @ 100 mls/hr IVPB Q24H [facility]; Protocol Stop: 10/06/18 13:01 Last Admin: 10/02/18 14:12 Dose: 100 mls/hr Insulin Human Lispro (Humalog Med) 0 units SC ACHS [facility]; Protocol Last Admin: 10/02/18 12:35 Dose: Not Given Losartan Potassium (Cozaar) 100 mg PO DAILY [facility] Last Admin: 10/02/18 10:20 Dose: 100 mg Oxycodone/Acetaminophen (Percocet 5/325 Mg Tab) 1 tab PO Q6H PRN PRN Reason: Pain, severe (8-10) Stop: 10/04/18 16:47 Last Admin: 10/01/18 17:13 Dose: 1 tab Pantoprazole Sodium (Protonix Ec Tab) 40 mg PO ACB [facility] Last Admin: 10/02/18 10:20 Dose: 40 mg Sevelamer HCl (Renagel) 3,200 mg PO AC [facility] Last Admin: 10/02/18 12:37 Dose: 3,200 mg Vitamin B Complex/Vit C/Folic Acid (Nephro-David) 1 tab PO 0800 [facility] - Labs Labs: 10/01/18 08:45 10/01/18 08:45 PT 11.3 SECONDS (9.4-12.5) 09/26/18 18:00 INR 0.98 09/26/18 18:00 APTT 32.7 Seconds (25.1-36.5) 09/26/18 18:00 Attending/Attestation - Attestation I have personally seen and examined this patient.: Yes I have fully participated in the care of the patient.: Yes I have reviewed all pertinent clinical information, including history, physical exam and plan: Yes Notes (Text): 10/02/18 14:39 Attending note; Patient seen and examined with resident. Patient is alert and awake. Status post toe amputation. Dressing in place No active bleeding/discharge noted. surgical boot by the bedside. Patient is a 48-year-old male with past medical history significant for hypertension, type 2 diabetes, nephrotic syndrome, coronary artery disease, NSTEMI, and end-stage renal disease on dialysis Wednesday//Wednesday the presented to the emergency room with foul smell from right foot fifth digit ulceration. 1. Right foot/ 5th toe osteomyelitis; s/p amputation of 5th toe right foot. Pathology pending. Dressing in place. Podiatry evaluation appreciated. Case discussed with ID in detail. Continue IV Maxipime. Wound culture is positive for Proteus mirabilis. 2. End-stage renal disease on dialysis. Continue dialysis //Wednesday. Nephrology evaluation appreciated. 3. Type 2 diabetes. Continue insulin sliding scale. Continue to monitor Accu- Cheks. 4. Hypertension. Continue Cozaar. Hydralazine and Norvasc. Pending pathology from toe amputation to determine the need for long-term antibiotics. We will get diagnosis of bone biopsy results on Wednesday. Possible discharge on Wednesday after biopsy results. Continue IV Maxipime until biopsy results. possible discharge with po antibiotics if margins clear. otherwise patient will need IV antibiotics therapy. The diagnosis, follow-up plan discussed with patient in detail. Upon discharge the patient will follow up with PMD Dr. House and podiatry Dr. Baig.
[2018-10-02] MEDS: Pantoprazole 40 mg EC Tab PO SCH (10:20)
[2018-10-02] MEDS: guaiFENesin-DM 600-30 mg ER Tab PO SCH ×2 (10:20→17:15)
--- NOTE | 2018-10-02 10:48 | PN ---
DATE: 10/02/2018 SUBJECTIVE: The patient is in bed in no acute distress, was seen earlier today in 578, bed 2. PHYSICAL EXAMINATION: VITAL SIGNS: Temperature is 98, blood pressure is 130/90, respiratory rate of 18, heart rate of 97. HEENT: Unremarkable. NECK: Supple. LUNGS: Have decreased breath sounds. HEART: Normal S1, S2. ABDOMEN: Soft, nontender. LABORATORY EXAMINATION: Reveals the toe culture is pansensitive, Proteus anaerobes are negative, nasal MRSA screen is negative. Blood cultures are negative. Review of orders reveals the patient to be on cefepime and review of order also reveals the patient's pathology report is pending. ASSESSMENT AND PLAN: This is a 48-year-old male with osteomyelitis of right fifth toe, history of nephrotic syndrome, end-stage renal disease on hemodialysis, non-ST elevation myocardial infarction with Proteus in the toe cultures pathology is consistent with margins that are consistent with acute osteo that will require 4-6 weeks of antibiotics. Currently recommended to give half of a IV and half of p.o. However, if the margins are free of osteomyelitis 5-7 days and they switch to p.o. antibiotics to complete therapy. We will check on the pathology report which is pending. Junior Mtz MD
[2018-10-02] MEDS: Cefepime 1gm in NS 100ml 1 GM/100 ML BAG IVPB SCH (14:12)
--- NOTE | 2018-10-02 20:42 | PN ---
DATE: 10/02/2018 ADDITIONAL PROGRESS NOTE LOCATION: The patient is in room 578, bed 2. Detailed progress note has been already written by Anjana Villagran. The patient is lying flat in bed without chest pain, shortness of breath, or palpitations. The patient is postop amputation of right foot fifth toe due to nonhealing osteomyelitis. The patient is also known case of end-stage renal disease, on dialysis. The patient had non-STEMI in the past. Has had a history of diabetes, neuropathy, hyperlipidemia, hypertension, obesity, renal failure, on dialysis. Clinically, the patient cardiac status is stable. We will continue present therapy and we will follow. Gail Dawn MD
--- NOTE | 2018-10-03 06:50 | CP.PCM.PN ---
Subjective - Date & Time of Evaluation Date of Evaluation: 10/03/18 Time of Evaluation: 06:30 - Subjective Subjective: Awake,alert no distress Reason for consultation and follow up: Cardiac evaluation for pre-op clearance for foot surgery,post op follow up, status post right 5th toe amputation with metatarsal head surgery, history of renal failure,diabetes mellitus,hypertension, hyperlipidemia, coronary artery disease Seen and examined by me and Dr. Dickinson Objective - Vital Signs/Intake and Output Vital Signs (last 24 hours): Temp Pulse Resp BP Pulse Ox 98.7 F 81 18 134/91 H 98 10/02/18 22:48 10/02/18 22:48 10/02/18 22:48 10/02/18 22:48 10/02/18 22:48 Intake and Output: 10/02/18 10/03/18 18:59 06:59 Intake Total 620 Output Total 0 Balance 620 - Medications Medications: Current Medications Acetaminophen (Tylenol 325mg Tab) 650 mg PO Q6H PRN PRN Reason: Pain, Mild (1-3) Amlodipine Besylate (Norvasc) 10 mg PO DAILY [facility] Last Admin: 09/30/18 09:54 Dose: 10 mg Benzocaine/Menthol (Cepacol Sore Throat) 1 gatito MT Q2H PRN PRN Reason: Sore Throat Last Admin: 09/29/18 04:45 Dose: 1 gatito Calcium Carbonate (Oscal) 500 mg PO BID [facility] Last Admin: 10/02/18 17:15 Dose: 500 mg Cinacalcet (Sensipar) 60 mg PO BRKDIN [facility] Last Admin: 10/02/18 17:15 Dose: 60 mg Dextrose (Dextrose 50% Inj) 0 ml IV STAT PRN; Protocol PRN Reason: Hypoglycemia Protocol Guaifenesin/Dextromethorphan (Robitussin Dm) 5 ml PO Q4H PRN PRN Reason: Cough Last Admin: 09/29/18 04:45 Dose: 5 ml Guaifenesin/Dextromethorphan (Mucinex-Dm 600-30 Mg) 1 tab PO BID [facility] Last Admin: 10/02/18 17:15 Dose: 1 tab Hydralazine HCl (Apresoline) 50 mg PO Q12 [facility] Last Admin: 10/01/18 10:00 Dose: Not Given Dextrose (Dextrose 5% In Water 1000 Ml) 1,000 mls @ 0 mls/hr IV .Q0M PRN; Protocol PRN Reason: Hypoglycemia Protocol Cefepime HCl (Maxipime 1gm) 1 gm in 100 mls @ 100 mls/hr IVPB Q24H [facility]; Protocol Stop: 10/06/18 13:01 Last Admin: 10/02/18 14:12 Dose: 100 mls/hr Insulin Human Lispro (Humalog Med) 0 units SC ACHS [facility]; Protocol Last Admin: 10/02/18 23:30 Dose: Not Given Losartan Potassium (Cozaar) 100 mg PO DAILY [facility] Last Admin: 10/02/18 10:20 Dose: 100 mg Oxycodone/Acetaminophen (Percocet 5/325 Mg Tab) 1 tab PO Q6H PRN PRN Reason: Pain, severe (8-10) Stop: 10/04/18 16:47 Last Admin: 10/01/18 17:13 Dose: 1 tab Pantoprazole Sodium (Protonix Ec Tab) 40 mg PO ACB [facility] Last Admin: 10/02/18 10:20 Dose: 40 mg Sevelamer HCl (Renagel) 3,200 mg PO AC [facility] Last Admin: 10/02/18 17:07 Dose: 3,200 mg Vitamin B Complex/Vit C/Folic Acid (Nephro-David) 1 tab PO 0800 [facility] - Labs Labs: 10/01/18 08:45 10/01/18 08:45 PT 11.3 SECONDS (9.4-12.5) 09/26/18 18:00 INR 0.98 09/26/18 18:00 APTT 32.7 Seconds (25.1-36.5) 09/26/18 18:00 - Constitutional Appears: Non-toxic, No Acute Distress - Head Exam Head Exam: NORMAL INSPECTION, NORMOCEPHALIC - Eye Exam Eye Exam: Normal appearance Pupil Exam: NORMAL ACCOMODATION - ENT Exam ENT Exam: Mucous Membranes Moist, Normal Exam - Neck Exam Neck Exam: Full ROM, Normal Inspection - Respiratory Exam Respiratory Exam: Decreased Breath Sounds, Clear to Ausculation Bilateral, NORMAL BREATHING PATTERN - Cardiovascular Exam Cardiovascular Exam: +S1, +S2 - GI/Abdominal Exam GI & Abdominal Exam: Soft, Normal Bowel Sounds - Extremities Exam Additional comments: right foot dressing - Neurological Exam Neurological Exam: Alert, Awake, Oriented x3 - Psychiatric Exam Psychiatric exam: Normal Affect, Normal Mood - Skin Skin Exam: Dry, Normal Color, Warm Assessment and Plan - Assessment and Plan (Free Text) Assessment: A 48 year old obese male who came in for right fifth toe wound. History of renal failure,diabetes mellitus,hypertension,hyperlipidemia, coronary artery disease, non-STEMI. consult was called for cardiac clearance for surgery. Moderate risk for surgery. Status post right fifth digit and metatarsal amputation POD#5. Followed up by Podiatry. Controlled blood pressure. Toe wound culture positive for Proteus Mirabilis. On contact isolation. Plan: Cardiac status stable Status post right fifth digit and metatarsal amputation POD#5 Heart rate controlled Controlled blood pressure On Norvasc 10 mg daily,Apresoline 50 mg BID, Cozaar 100 mg daily Continue current medications Continue current treatment Pain management Controlled glucose Lifestyle modification Weight reduction Continue IV antibiotics per ID Awaiting pathology result to determine antibiotic treatment as per ID Will follow up Plan and treatment discussed with Dr. Dickinson
[2018-10-03] MEDS ORDERED: Multivitamin Vitamin B Complex (Nephro-Vite) Tab PO SCH (08:00)
[2018-10-03 08:05] VITALS: RESP 20
[2018-10-03] MEDS: Pantoprazole 40 mg EC Tab PO SCH (08:21)
[2018-10-03] MEDS: guaiFENesin-DM 600-30 mg ER Tab PO SCH ×2 (09:29→17:32)
[2018-10-03] MEDS: Insulin Lispro (humaLOG) MEDIUM Coverage SC SCH ×3 (09:29→18:44)
--- NOTE | 2018-10-03 13:27 | CP.PCM.PN ---
Subjective - Date & Time of Evaluation Date of Evaluation: 10/03/18 Time of Evaluation: 13:22 - Subjective Subjective: Podiatry progress note for Dr. Baig, 48 year old male with past medical history of hypertension, insulin dependent diabetes mellitus, nephrotic syndrome, NSTEMI, ESRD on dialysis T//, diabetic neuropathy, hyperlipidemia 4 day s/p fifth ray amputation. Denies any acute overnight events. Denies pain to his feet. Patient denies f/n/v/sob. Objective - Vital Signs/Intake and Output Vital Signs (last 24 hours): Temp Pulse Resp BP Pulse Ox 98.6 F 75 20 139/92 H 99 10/03/18 06:00 10/03/18 06:00 10/03/18 06:00 10/03/18 06:00 10/03/18 06:00 Intake and Output: 10/03/18 10/03/18 06:59 18:59 Intake Total 620 Output Total 0 Balance 620 - Medications Medications: Current Medications Acetaminophen (Tylenol 325mg Tab) 650 mg PO Q6H PRN PRN Reason: Pain, Mild (1-3) Amlodipine Besylate (Norvasc) 10 mg PO DAILY [facility] Last Admin: 09/30/18 09:54 Dose: 10 mg Benzocaine/Menthol (Cepacol Sore Throat) 1 gatito MT Q2H PRN PRN Reason: Sore Throat Last Admin: 09/29/18 04:45 Dose: 1 gatito Calcium Carbonate (Oscal) 500 mg PO BID [facility] Last Admin: 10/03/18 09:29 Dose: 500 mg Cinacalcet (Sensipar) 60 mg PO BRKDIN [facility] Last Admin: 10/03/18 08:21 Dose: 60 mg Dextrose (Dextrose 50% Inj) 0 ml IV STAT PRN; Protocol PRN Reason: Hypoglycemia Protocol Guaifenesin/Dextromethorphan (Robitussin Dm) 5 ml PO Q4H PRN PRN Reason: Cough Last Admin: 09/29/18 04:45 Dose: 5 ml Guaifenesin/Dextromethorphan (Mucinex-Dm 600-30 Mg) 1 tab PO BID [facility] Last Admin: 10/03/18 09:29 Dose: 1 tab Hydralazine HCl (Apresoline) 50 mg PO Q12 [facility] Last Admin: 10/01/18 10:00 Dose: Not Given Dextrose (Dextrose 5% In Water 1000 Ml) 1,000 mls @ 0 mls/hr IV .Q0M PRN; Protocol PRN Reason: Hypoglycemia Protocol Cefepime HCl (Maxipime 1gm) 1 gm in 100 mls @ 100 mls/hr IVPB Q24H [facility]; Protocol Stop: 10/06/18 13:01 Last Admin: 10/02/18 14:12 Dose: 100 mls/hr Insulin Human Lispro (Humalog Med) 0 units SC ACHS [facility]; Protocol Last Admin: 10/03/18 09:29 Dose: Not Given Losartan Potassium (Cozaar) 100 mg PO DAILY [facility] Last Admin: 10/03/18 09:29 Dose: 100 mg Oxycodone/Acetaminophen (Percocet 5/325 Mg Tab) 1 tab PO Q6H PRN PRN Reason: Pain, severe (8-10) Stop: 10/04/18 16:47 Last Admin: 10/01/18 17:13 Dose: 1 tab Pantoprazole Sodium (Protonix Ec Tab) 40 mg PO ACB [facility] Last Admin: 10/03/18 08:21 Dose: 40 mg Sevelamer HCl (Renagel) 3,200 mg PO AC [facility] Last Admin: 10/03/18 08:21 Dose: 3,200 mg Vitamin B Complex/Vit C/Folic Acid (Nephro-David) 1 tab PO 0800 [facility] Last Admin: 10/03/18 08:21 Dose: 1 tab - Labs Labs: 10/01/18 08:45 10/01/18 08:45 PT 11.3 SECONDS (9.4-12.5) 09/26/18 18:00 INR 0.98 09/26/18 18:00 APTT 32.7 Seconds (25.1-36.5) 09/26/18 18:00 - Constitutional Appears: Well, Non-toxic, No Acute Distress - Head Exam Head Exam: ATRAUMATIC, NORMOCEPHALIC - Eye Exam Eye Exam: Normal appearance Pupil Exam: NORMAL ACCOMODATION - ENT Exam ENT Exam: Mucous Membranes Moist - Extremities Exam Extremities Exam: Normal Inspection Additional comments: B/L lower extremity focused exam: Vasc: DP/PT pulses palpable, Cap fill time < 3s, Temp gradient wnl, mild edema noted to lateral aspect of L foot Derm: Surgical incision noted to the dorsal aspect of the right m idfoot/forefoot, sutures intact, no wound dehiscence noted, minimal maceration of the site, no active drainage, wound noted where previously elvira drain was inserted, no malodor, no clinical signs of infection Neuro: Gross sensation diminished, protective sensation absent Ortho: No pain upon palpation, rotated R 5th digit, pes planus deformity, hammering of digits 4 on the right foot Assessment and Plan - Assessment and Plan (Free Text) Assessment: 48 yo male seen and evaluated for 4 days s/p right fifth ray amputation. Plan: Patient seen and evaluated Chart, labs and vitals reviewed X-ray of the right foot reviewed; dislocated right fifth toe at the proximal phalanx MRI of the right foot reviewed; bone marrow edema noted in the right fifth digit X-ray of the right foot 09/29- satisfactory post operative results Wound cultures: proteus mirabilis right foot cleansed with saline and dressed with adaptic, ABD, DSD Patient to weight bear as tolerated using the forefoot wedge shoe. Pathology report: osteomyelitis of the fifth digit and met head Stable for discharge from podiatry point of view Podiatry will continue to follow the patient
--- NOTE | 2018-10-03 14:25 | CP.PCM.PN ---
<Carroll Santo - Last Filed: 10/03/18 14:21> Subjective - Date & Time of Evaluation Date of Evaluation: 10/03/18 Time of Evaluation: 10:15 - Subjective Subjective: ID Progress Note Patient seen and examined. Patient admits to mild pain in right foot. Denies chest pain, shortness of breath, nausea, vomiting, diarrhea, fever, chills. Objective - Vital Signs/Intake and Output Vital Signs (last 24 hours): Temp Pulse Resp BP Pulse Ox 98.6 F 75 20 139/92 H 99 10/03/18 06:00 10/03/18 06:00 10/03/18 06:00 10/03/18 06:00 10/03/18 06:00 Intake and Output: 10/03/18 10/03/18 06:59 18:59 Intake Total 620 Output Total 0 Balance 620 - Medications Medications: Current Medications Acetaminophen (Tylenol 325mg Tab) 650 mg PO Q6H PRN PRN Reason: Pain, Mild (1-3) Amlodipine Besylate (Norvasc) 10 mg PO DAILY [facility] Last Admin: 09/30/18 09:54 Dose: 10 mg Benzocaine/Menthol (Cepacol Sore Throat) 1 gatito MT Q2H PRN PRN Reason: Sore Throat Last Admin: 09/29/18 04:45 Dose: 1 gatito Calcium Carbonate (Oscal) 500 mg PO BID [facility] Last Admin: 10/03/18 09:29 Dose: 500 mg Cinacalcet (Sensipar) 60 mg PO BRKDIN [facility] Last Admin: 10/03/18 08:21 Dose: 60 mg Dextrose (Dextrose 50% Inj) 0 ml IV STAT PRN; Protocol PRN Reason: Hypoglycemia Protocol Guaifenesin/Dextromethorphan (Robitussin Dm) 5 ml PO Q4H PRN PRN Reason: Cough Last Admin: 09/29/18 04:45 Dose: 5 ml Guaifenesin/Dextromethorphan (Mucinex-Dm 600-30 Mg) 1 tab PO BID [facility] Last Admin: 10/03/18 09:29 Dose: 1 tab Hydralazine HCl (Apresoline) 50 mg PO Q12 [facility] Last Admin: 10/01/18 10:00 Dose: Not Given Dextrose (Dextrose 5% In Water 1000 Ml) 1,000 mls @ 0 mls/hr IV .Q0M PRN; Protocol PRN Reason: Hypoglycemia Protocol Cefepime HCl (Maxipime 1gm) 1 gm in 100 mls @ 100 mls/hr IVPB Q24H [facility]; Protocol Stop: 10/06/18 13:01 Last Admin: 10/02/18 14:12 Dose: 100 mls/hr Insulin Human Lispro (Humalog Med) 0 units SC ACHS [facility]; Protocol Last Admin: 10/03/18 09:29 Dose: Not Given Losartan Potassium (Cozaar) 100 mg PO DAILY [facility] Last Admin: 10/03/18 09:29 Dose: 100 mg Oxycodone/Acetaminophen (Percocet 5/325 Mg Tab) 1 tab PO Q6H PRN PRN Reason: Pain, severe (8-10) Stop: 10/04/18 16:47 Last Admin: 10/01/18 17:13 Dose: 1 tab Pantoprazole Sodium (Protonix Ec Tab) 40 mg PO ACB [facility] Last Admin: 10/03/18 08:21 Dose: 40 mg Sevelamer HCl (Renagel) 3,200 mg PO AC [facility] Last Admin: 10/03/18 08:21 Dose: 3,200 mg Vitamin B Complex/Vit C/Folic Acid (Nephro-David) 1 tab PO 0800 [facility] Last Admin: 10/03/18 08:21 Dose: 1 tab - Labs Labs: 10/01/18 08:45 10/01/18 08:45 PT 11.3 SECONDS (9.4-12.5) 09/26/18 18:00 INR 0.98 09/26/18 18:00 APTT 32.7 Seconds (25.1-36.5) 09/26/18 18:00 - Constitutional Appears: Non-toxic, No Acute Distress - Head Exam Head Exam: ATRAUMATIC, NORMAL INSPECTION, NORMOCEPHALIC - ENT Exam ENT Exam: Mucous Membranes Moist - Respiratory Exam Respiratory Exam: Decreased Breath Sounds, NORMAL BREATHING PATTERN - Cardiovascular Exam Cardiovascular Exam: RRR, +S1, +S2 - GI/Abdominal Exam GI & Abdominal Exam: Soft, Normal Bowel Sounds. absent: Tenderness - Extremities Exam Additional comments: Right 5th digit amputation. Surgical incision clean, dry. No erythema. - Neurological Exam Neurological Exam: Alert, Awake, CN II-XII Intact, Oriented x3 - Psychiatric Exam Psychiatric exam: Normal Affect, Normal Mood - Skin Skin Exam: Intact, Normal Color, Warm Assessment and Plan - Assessment and Plan (Free Text) Plan: Osteomyelitis of the right 5th toe Hx of Nephrotic syndrome Hx of ESRD on hemodialysis Hx of NSTEMI Hx of DM2 Hx of HTN HX of HLD Plan Initial foot cultures show Proteus Blood cultures negative Pathology reports shows negative margins No further antibiotics Continue current medical management Gal, PGY-3 <Carlos Logan - Last Filed: 10/03/18 18:15> Objective - Vital Signs/Intake and Output Vital Signs (last 24 hours): Temp Pulse Resp BP Pulse Ox 98.3 F 80 20 159/102 H 98 10/03/18 14:00 10/03/18 14:00 10/03/18 14:00 10/03/18 14:00 10/03/18 14:00 Intake and Output: 10/03/18 10/03/18 06:59 18:59 Intake Total 620 Output Total 0 Balance 620 - Medications Medications: Current Medications Acetaminophen (Tylenol 325mg Tab) 650 mg PO Q6H PRN PRN Reason: Pain, Mild (1-3) Amlodipine Besylate (Norvasc) 10 mg PO DAILY [facility] Last Admin: 09/30/18 09:54 Dose: 10 mg Benzocaine/Menthol (Cepacol Sore Throat) 1 gatito MT Q2H PRN PRN Reason: Sore Throat Last Admin: 09/29/18 04:45 Dose: 1 gatito Calcium Carbonate (Oscal) 500 mg PO BID [facility] Last Admin: 10/03/18 17:32 Dose: 500 mg Cinacalcet (Sensipar) 60 mg PO BRKDIN [facility] Last Admin: 10/03/18 17:31 Dose: 60 mg Dextrose (Dextrose 50% Inj) 0 ml IV STAT PRN; Protocol PRN Reason: Hypoglycemia Protocol Guaifenesin/Dextromethorphan (Robitussin Dm) 5 ml PO Q4H PRN PRN Reason: Cough Last Admin: 09/29/18 04:45 Dose: 5 ml Guaifenesin/Dextromethorphan (Mucinex-Dm 600-30 Mg) 1 tab PO BID [facility] Last Admin: 10/03/18 17:32 Dose: 1 tab Hydralazine HCl (Apresoline) 50 mg PO Q12 [facility] Last Admin: 10/01/18 10:00 Dose: Not Given Dextrose (Dextrose 5% In Water 1000 Ml) 1,000 mls @ 0 mls/hr IV .Q0M PRN; Protocol PRN Reason: Hypoglycemia Protocol Cefepime HCl (Maxipime 1gm) 1 gm in 100 mls @ 100 mls/hr IVPB Q24H [facility]; Protocol Stop: 10/06/18 13:01 Last Admin: 10/03/18 14:42 Dose: 100 mls/hr Insulin Human Lispro (Humalog Med) 0 units SC ACHS [facility]; Protocol Last Admin: 10/03/18 14:50 Dose: Not Given Losartan Potassium (Cozaar) 100 mg PO DAILY [facility] Last Admin: 10/03/18 09:29 Dose: 100 mg Oxycodone/Acetaminophen (Percocet 5/325 Mg Tab) 1 tab PO Q6H PRN PRN Reason: Pain, severe (8-10) Stop: 10/04/18 16:47 Last Admin: 10/01/18 17:13 Dose: 1 tab Pantoprazole Sodium (Protonix Ec Tab) 40 mg PO ACB [facility] Last Admin: 10/03/18 08:21 Dose: 40 mg Sevelamer HCl (Renagel) 3,200 mg PO AC [facility] Last Admin: 10/03/18 17:31 Dose: 3,200 mg Vitamin B Complex/Vit C/Folic Acid (Nephro-David) 1 tab PO 0800 [facility] Last Admin: 10/03/18 08:21 Dose: 1 tab - Labs Labs: 10/01/18 08:45 10/01/18 08:45 PT 11.3 SECONDS (9.4-12.5) 09/26/18 18:00 INR 0.98 09/26/18 18:00 APTT 32.7 Seconds (25.1-36.5) 09/26/18 18:00 Assessment and Plan - Assessment and Plan (Free Text) Plan: Infectious diseases Attending Physician Attestation Patient seen and examined, discussed with senior medical technologist. I have reviewed the patient's history of present illness, past medical, social, personal and family histories, pertinent physical exam findings, course so far in this hospital admission, pertinent laboratory and imaging results. I agree with the above findings, assessment and plan. In addition, margins are clear and complete 5-7 days post-op of Cefepime for osteomyelitis of right 5th toe S/P amputation.
[2018-10-03] MEDS: Cefepime 1gm in NS 100ml 1 GM/100 ML BAG IVPB SCH (14:42)
--- NOTE | 2018-10-03 14:55 | CP.PCM.DIS ---
Provider - Provider Date of Admission: 09/28/18 11:53 Attending physician: Gennaro Eisenberg MD Consults: 09/26/18 16:48 Infectious Disease Consult Routine Comment: rt. 5th digit osteomylitis, failure of outpt. henry Consulting Provider: Junior Mtz Consulting Physician: Junior Mtz Reason for Consult: rt. 5th digit osteomylitis, failure of outpt. henry Nephrology Consult Routine Comment: rt. 5th digit osteo/ESRD tues/thurs/satu Consulting Provider: Jay Davis Consulting Physician: Jay Davis Reason for Consult: rt. 5th digit osteo/ESRD tues/thurs/satu Podiatry Consult Routine Comment: Rt. foot 5th digit osteo, failure outpt treatment Consulting Provider: Jocy Baig Consulting Physician: Jocy Baig Reason for Consult: Rt. foot 5th digit osteo, failure outpt treatment 09/28/18 11:41 Physician Consult Routine Comment: Consulting Provider: Clyde Knox Consulting Physician: Clyde Knox Reason for Consult: cardio clearance for toe amputation surgery 09/28/18 12:36 Cardiology Consult Routine Comment: Consulting Provider: Gail Dawn Consulting Physician: Gail Dawn Reason for Consult: Cardeiac clearance for R toe amputation 09/29/18 09:46 Physician Consult Routine Comment: Consulting Provider: Gail Dawn Consulting Physician: Gail Dawn Reason for Consult: PVD 09/30/18 12:39 Nursing Referral for Wound Care Routine Comment: Physician Instructions: Reason For Exam: ppost -op Time Spent in preparation of Discharge (in minutes): 35 Hospital Course - Lab Results Lab Results: Micro Results 09/30/18 10:00 Naris MRSA Culture (Admit) - Final MRSA NOT DETECTED 09/26/18 18:30 Blood-Venous Blood Culture - Final NO GROWTH AFTER 5 DAYS 09/26/18 18:30 Blood-Venous Gram Stain - Final TEST NOT PERFORMED 09/26/18 18:00 Blood-Venous Blood Culture - Final NO GROWTH AFTER 5 DAYS 09/26/18 18:00 Blood-Venous Gram Stain - Final TEST NOT PERFORMED 09/28/18 14:32 Foot - Right Anaerobic Culture - Final NO ANAEROBES ISOLATED. 09/28/18 12:30 Toe Gram Stain - Final 09/28/18 12:30 Toe Wound Culture - Final Proteus Mirabilis Most Recent Lab Values WBC 6.4 10^3/uL (4.5-11.0) 10/01/18 08:45 RBC 3.61 10^6/uL (3.5-6.1) 10/01/18 08:45 Hgb 10.1 g/dL (14.0-18.0) L 10/01/18 08:45 Hct 32.1 % (42.0-52.0) L 10/01/18 08:45 MCV 88.9 fl (80.0-105.0) 10/01/18 08:45 MCH 28.0 pg (25.0-35.0) 10/01/18 08:45 MCHC 31.5 g/dl (31.0-37.0) 10/01/18 08:45 RDW 14.7 % (11.5-14.5) H 10/01/18 08:45 Plt Count 174 10^3/uL (120.0-450.0) 10/01/18 08:45 MPV 10.7 fl (7.0-11.0) 10/01/18 08:45 Gran % 58.8 % (50.0-68.0) 10/01/18 08:45 Lymph % (Auto) 28.9 % (22.0-35.0) 10/01/18 08:45 [place] % (Auto) 6.2 % (1.0-6.0) H 10/01/18 08:45 Eos % (Auto) 5.8 % (1.5-5.0) H 10/01/18 08:45 Baso % (Auto) 0.3 % (0.0-3.0) 10/01/18 08:45 Gran # 3.78 (1.4-6.5) 10/01/18 08:45 Lymph # (Auto) 1.9 (1.2-3.4) 10/01/18 08:45 [place] # (Auto) 0.4 (0.1-0.6) 10/01/18 08:45 Eos # (Auto) 0.4 (0.0-0.7) 10/01/18 08:45 Baso # (Auto) 0.02 K/mm3 (0.0-2.0) 10/01/18 08:45 ESR 50 mm/hr (0.0-15.0) H 09/26/18 18:00 PT 11.3 SECONDS (9.4-12.5) 09/26/18 18:00 INR 0.98 09/26/18 18:00 APTT 32.7 Seconds (25.1-36.5) 09/26/18 18:00 Sodium 136 mmol/L (132-148) 10/01/18 08:45 Potassium 5.0 mmol/L (3.6-5.0) 10/01/18 08:45 Chloride 102 mmol/L (98-107) 10/01/18 08:45 Carbon Dioxide 19 mmol/L (21-33) L 10/01/18 08:45 Anion Gap 20 (10-20) 10/01/18 08:45 BUN 71 mg/dL (7-21) H 10/01/18 08:45 Creatinine 13.2 mg/dl (0.8-1.5) H* 10/01/18 08:45 Est GFR ( Amer) 5 10/01/18 08:45 Est GFR (Non-Af Amer) 4 10/01/18 08:45 POC Glucose (mg/dL) 100 mg/dL (65-110) 10/03/18 06:32 Random Glucose 140 mg/dL (70-110) H 10/01/18 08:45 Hemoglobin A1c 6.6 % (4.2-6.5) H 09/29/18 16:12 Calcium 8.2 mg/dL (8.4-10.5) L 10/01/18 08:45 Phosphorus 5.2 mg/dL (2.5-4.5) H 09/27/18 05:00 Magnesium 1.9 mg/dL (1.7-2.2) 09/27/18 05:00 Total Bilirubin 0.7 mg/dL (0.2-1.3) 10/01/18 08:45 AST 24 U/L (17-59) 10/01/18 08:45 ALT 33 U/L (7-56) 10/01/18 08:45 Alkaline Phosphatase 137 U/L (38-126) H 10/01/18 08:45 C-Reactive Protein < 5.00 mg/L (0.0-9.9) 09/26/18 18:00 Total Protein 8.3 g/dL (5.8-8.3) 10/01/18 08:45 Albumin 4.6 g/dL (3.0-4.8) 10/01/18 08:45 Globulin 3.7 gm/dL 10/01/18 08:45 Albumin/Globulin Ratio 1.2 (1.1-1.8) 10/01/18 08:45 Procalcitonin 1.61 NG/ML (0.19-0.49) H 09/26/18 18:00 Blood Type A POSITIVE 09/26/18 18:23 Antibody Screen Negative 09/26/18 18:23 BBK History Checked Patient has bt 09/26/18 18:23 - Hospital Course Hospital Course: 48 year old male with pertinent past medical history of hypertension, nephrotic syndrome, NSTEMI, ESRD on dialysis /, diabetic neuropathy, hyperlipidemia presented with 5th digit RLE osteomyelitis that was resistant to outpatient treatment. Patient was referred to [facility] by Dr. Baig on 09/28 for possible amputation. While in the hospital, patient underwent RLE 5th digit amputation, and tolerated procedure well. Patient did not seek pain medication since 09/30. Patient had scheduled HD while here, and was continued on his regular ESRD medications of Sensipar and Renegel. Nephro team saw him, discontinued all of his HTN medications except for Cozaar. The ID team saw him as well, and started him on Cefepime. Once path results showed margin-negative osteomyelitis, Infectious Disease team cleared patient for discharge on no antibiotics. Patient has been instructed to follow up with Dr. Baig at wound care center, and he states that he has the contact information to follow up on . I asked the patient if he needs any refills on his medications, icnluding Cozaar, Sensipar and Renegel, but he stated that he has all of them. He is aware that he is to follow up with Dr. Davis and keep on his schedule for Hemodialysis on //Wed. On day of discharge, patient received his last dose of cefepime, and was cleared for discharge from an ID standpoint, as well as from Podiatry and Nephro. Of note - patient states that he does take insulin at home, takes 25 of humalog during the day and 15 at night, but does not check his blood sugar. Patient was advised to start checking his blood sugar, and to follow up with his primary adult day care worker, Dr. House, regarding diabetes management CAR. Patient verbalized understanding of this instruction. Discharge Exam - Head Exam Head Exam: ATRAUMATIC, NORMAL INSPECTION, NORMOCEPHALIC - Eye Exam Eye Exam: EOMI, Normal appearance, PERRL Pupil Exam: NORMAL ACCOMODATION, PERRL - Respiratory Exam Respiratory Exam: Clear to PA & Lateral, NORMAL BREATHING PATTERN - Cardiovascular Exam Cardiovascular Exam: REGULAR RHYTHM - GI/Abdominal Exam GI & Abdominal Exam: Normal Bowel Sounds - Extremities Exam Additional comments: right foot bandage, clean, dry, and intact - Neurological Exam Neurological exam: Alert, CN II-XII Intact, Normal Gait, Oriented x3, Reflexes Normal - Psychiatric Exam Psychiatric exam: Normal Affect, Normal Mood - Skin Skin Exam: Dry, Intact, Normal Color, Warm Discharge Plan - Follow Up Plan Condition: STABLE Disposition: HOME/ ROUTINE Instructions: Osteomyelitis, Type 2 Diabetes, Wound Care, End Stage Kidney Disease, Renal Failure Diet (DC) Additional Instructions: Please follow up with your primary care doctor, Dr. Crystal, within 3-5 days of discharge. Please follow up with Dr. Baig on 10/05/18, at the [facility]. Please continue dialysis as scheduled () and continue to follow up with Dr. Davis. We have provided a prescription for outpatient physical therapy - please discuss options for outpatient physical therapy with your primary, Dr. House. You will need to discuss management of your Diabetes with your primary care doctor, Dr. House, as soon as possible. Please check your blood sugar everyday before taking your insulin. Your medication list is as follows: 1. Sensipar - 60 mg Tabs; Take one tablet with breakfast and one with dinner 2. Cozaar - 100 mg Tabs; Take one tablet daily in the morning 3. Renagel - 800 mg Tabs; Take 4 tablets before each meal 4. New Medication: Nephro-David - Tabs; Take one tablet at 8A with breakfast If your symptoms return, please go to the nearest emergency department. Referrals: Jocy Baig DPM [Staff Provider] - Jay Davis MD [Staff Provider] - Artur House MD [Staff Provider] -
[2018-10-03 15:55] VITALS: BP 159/102; PULSE 80; TEMP 98.3; O2SAT 98
--- NOTE | 2018-10-03 19:01 | CP.PCM.PN ---
Objective - Vital Signs/Intake and Output Vital Signs (last 24 hours): Temp Pulse Resp BP Pulse Ox 98.3 F 80 20 159/102 H 98 10/03/18 14:00 10/03/18 14:00 10/03/18 14:00 10/03/18 14:00 10/03/18 14:00 - Labs Labs: 10/01/18 08:45 10/01/18 08:45 PT 11.3 SECONDS (9.4-12.5) 09/26/18 18:00 INR 0.98 09/26/18 18:00 APTT 32.7 Seconds (25.1-36.5) 09/26/18 18:00
--- NOTE | 2018-10-04 08:29 | PN ---
DATE: 10/03/2018 REASON FOR CONSULTATION: Followup cardiac evaluation, preoperative evaluation status post right toe surgery. The patient denies any right toe amputation. The patient denies any chest pain, shortness of breath, or any palpitation. This note is in addition to dictated by the nurse practitioner, Anjana Villagran. PHYSICAL EXAMINATION: VITAL SIGNS: The patient's vitals remain stable. Blood pressure is at the higher side 159/102. PERTINENT LABORATORY DATA: Hemoglobin of 10, hematocrit of 32.1 and creatinine 13.2. IMPRESSION: This is a 48-year-old morbidly obese male with past medical history significant for peripheral arterial disease; end-stage renal disease, on dialysis; admitted for the gangrene of the toe requiring amputation and postoperative followup. The patient is status post amputation of the toe. RECOMMENDATIONS: Continue Norvasc 10 mg, continue hydralazine 50 b.i.d., continue Cozaar, and possible discharge today. Aggressive medical treatment and followup. CVS status is stable. Thank you Dr. Eisenberg for providing us the opportunity in taking care of the patient, Yonis Edwards. Gail Dickinson MD
== END 2018-10-03 18:35 | disposition home or self-care (01) | DRG 617 ==
LOC: ED 15:02 → ERH 19:47 → 5RSO 22:50 → OBSVTOIN 09-28 11:53
PROVIDERS: ADMIT Internal Medicine; ATTEND Internal Medicine
PROC: 0Y6M0ZF Detachment at Right Foot, Partial 5th Ray, Open Approach (ICD-10-PCS; principal; 2018-09-28 13:00)
PROC: 5A1D70Z Performance of Urinary Filtration, Intermittent, Less than 6 Hours Per Day (ICD-10-PCS; 2018-09-29)
PROC: 5A1D70Z Performance of Urinary Filtration, Intermittent, Less than 6 Hours Per Day (ICD-10-PCS; 2018-10-01)
DX: E11.69 Type 2 diabetes mellitus with other specified complication (principal); M86.171 Other acute osteomyelitis, right ankle and foot; I13.2 Hypertensive heart and chronic kidney disease with heart failure and with stage 5 chronic kidney disease, or end stage renal disease; E11.621 Type 2 diabetes mellitus with foot ulcer; N18.6 End stage renal disease; E11.22 Type 2 diabetes mellitus with diabetic chronic kidney disease; E11.40 Type 2 diabetes mellitus with diabetic neuropathy, unspecified; D63.1 Anemia in chronic kidney disease; E83.51 Hypocalcemia; E11.51 Type 2 diabetes mellitus with diabetic peripheral angiopathy without gangrene; L97.519 Non-pressure chronic ulcer of other part of right foot with unspecified severity; E66.01 Morbid (severe) obesity due to excess calories; N25.81 Secondary hyperparathyroidism of renal origin; N04.9 Nephrotic syndrome with unspecified morphologic changes; I25.10 Atherosclerotic heart disease of native coronary artery without angina pectoris; I50.9 Heart failure, unspecified; I25.2 Old myocardial infarction; Z68.37 Body mass index [BMI] 37.0-37.9, adult; Z99.2 Dependence on renal dialysis; Z79.4 Long term (current) use of insulin; Z87.891 Personal history of nicotine dependence